=== PATIENT | female | born 1935 | race Caucasian/White ===

== ENCOUNTER 2017-03-30 08:01 | Day surgery (SDC) | payer OTHER, MEDICARE ==
[2017-03-30] MEDS ORDERED: LIDOCAINE HCL/PF 2% SDV 5ML VIAL ONE (08:33)
[2017-03-30 08:34] VITALS: BMI 32.9
[2017-03-30] MEDS ORDERED: PROPOFOL 20 ML ONE ×2 (08:34)
[2017-03-30 09:32] VITALS: TEMP 97.7
[2017-03-30] MEDS ORDERED: FUROSEMIDE 40 MG TABLET (FP) PO ONE (10:30)
[2017-03-30] MEDS ORDERED: SOTALOL HCL 80 MG TABLET (FP) PO ONE (10:30)
[2017-03-30] MEDS ORDERED: VALSARTAN 40 MG TABLET (FP) PO ONE (10:45)
[2017-03-30 14:18] VITALS: BP 180/74; PULSE 71
--- NOTE | 2017-03-31 13:45 | PATH ---
Surgical Pathology Report Patient Name: GUEVARA SCHWARTZ [facility]. Rec. #: [id number] /Age/Gender: 1935 (Age: 82) / F Account: [id number] Location: [facility]-ENDOSCOPY Taken: 03/30/2017 Received: 03/30/2017 Reported: 03/31/2017 Physicians: Shelia Escobedo M.D. Specimen(s) Received A: BX ANTRUM B: BX GASTRIC BODY POLYPS C: BX DISTAL AND MID ESOPHAGUS D: PROXIMAL TRANSVERSE COLON POLYP E: BX HEPATIC FLEXURE POLYP Clinical History History of colon polyps History of gastric ulcer, dysphagia Hiatal hernia, gastric polyps, colon polyps, diverticulosis, patent rectosigmoid anastomosis Final Diagnosis A. STOMACH, ANTRUM, BIOPSY: GASTRIC ANTRAL MUCOSA WITH NO PATHOLOGIC CHANGES. IMMUNOSTAIN FOR H. PYLORI IS NEGATIVE. B. STOMACH, BODY, BIOPSY: HYPERPLASTIC FUNDIC GLAND POLYP. IMMUNOSTAIN FOR H. PYLORI IS NEGATIVE. C. DISTAL AND MID ESOPHAGUS, BIOPSY: SQUAMOUS EPITHELIUM WITH PAPILLOMATOSIS SUGGESTIVE OF REFLUX ESOPHAGITIS. NO INTESTINAL METAPLASIA IDENTIFIED (NO SAWYER'S IDENTIFIED). NO EOSINOPHILIC ESOPHAGITIS IDENTIFIED. D. COLON, PROXIMAL TRANSVERSE, BIOPSY: TUBULAR ADENOMA. E. COLON, HEPATIC FLEXURE, BIOPSY: TUBULAR ADENOMA. Electronically Signed Quentin Chavarria M.D. Gross Description A. Received in formalin, labeled "biopsy antrum" are 2 bhat, irregular portions of soft tissue averaging 0.3 cm. in greatest dimension. The specimens are submitted in toto in one cassette. B. Received in formalin, labeled "biopsy gastric body" are 2 bhat, irregular portions of soft tissue measuring 0.3 and 0.5 cm. in greatest dimension. The specimens are submitted in toto in one cassette. C. Received in formalin, labeled "biopsy distal and mid esophagus" are 3 bhat, irregular portions of soft tissue ranging from 0.4-0.5 cm. in greatest dimension. The specimens are submitted in toto in one cassette. D. Received in formalin, labeled "proximal transverse colon polyp" is a bhat, irregular portion of soft tissue measuring 0.4 cm. in greatest dimension. The specimen is submitted in toto in one cassette. E. Received in formalin, labeled "polyp hepatic flexure" is a bhat, irregular portion of soft tissue measuring 0.3 cm. in greatest dimension. The specimen is submitted in toto in one cassette. 03/30/201703/30/2017
== END 2017-03-30 12:50 | disposition home or self-care (01) ==
LOC: JASU-ENDO 08:01
PROVIDERS: ATTEND Internal Medicine Gastroenterology
PROC: 0DBL8ZX Excision of Transverse Colon, Via Natural or Artificial Opening Endoscopic, Diagnostic (ICD-10-PCS; 2017-03-30)
PROC: 0DB38ZX Excision of Lower Esophagus, Via Natural or Artificial Opening Endoscopic, Diagnostic (ICD-10-PCS; 2017-03-30)
PROC: 0DB68ZX Excision of Stomach, Via Natural or Artificial Opening Endoscopic, Diagnostic (ICD-10-PCS; 2017-03-30)
PROC: 0DB28ZX Excision of Middle Esophagus, Via Natural or Artificial Opening Endoscopic, Diagnostic (ICD-10-PCS; 2017-03-30)
PROC: 0DBK8ZX Excision of Ascending Colon, Via Natural or Artificial Opening Endoscopic, Diagnostic (ICD-10-PCS; principal; 2017-03-30 09:00)
DX: Z86.010 Personal history of colon polyps (principal); K63.5 Polyp of colon; D12.2 Benign neoplasm of ascending colon; D12.3 Benign neoplasm of transverse colon; K57.30 Diverticulosis of large intestine without perforation or abscess without bleeding; K64.4 Residual hemorrhoidal skin tags; Z98.0 Intestinal bypass and anastomosis status; K31.7 Polyp of stomach and duodenum; K44.9 Diaphragmatic hernia without obstruction or gangrene; R10.13 Epigastric pain
CPT/HCPCS: 88305-TC; 88342-TC

== ENCOUNTER 2017-07-02 16:56 | Inpatient (IN) | payer OTHER, MEDICARE ==
--- NOTE | 2017-07-02 17:01 | PDOC ---
Rapid Medical Evaluation Time Seen by Provider: 07/02/17 16:59 Medical Evaluation: Allergies Allergy/AdvReac Type Severity Reaction Status Date / Time No Known Allergies Allergy Verified 12/05/15 16:29 07/02/17 17:00 pt with history of Afib presents with cough for weeks sent by Dr. Solis for eval of rapid Afib
[2017-07-02 17:03] VITALS: BMI 31.1
[2017-07-02 17:37] LABS: BASO % 0.5 % (0-2.0); EOS % 1.7 % (0-4.5); HEMOGLOBIN 10.7 GM/dL (10.7-15.3); LYMPH % 20.2 % (8-40); MCH 23.7 pg (25.7-33.7); MCHC 31.3 g/dl (32.0-36.0); MEAN CELL VOLUME 75.6 fl (80-96); MONO % 10.8 % (3.8-10.2); NEUT % 66.8 % (42.8-82.8); PLATELET COUNT 380 K/MM3 (134-434); RDW 16.1 % (11.6-15.6)
[2017-07-02] MEDS ORDERED: guaiFENesin 200 MG/10 ML 10 ML UNIT-DOSE CUPS PO ONE (17:48)
[2017-07-02] MEDS ORDERED: methylPREDNISolone NA SUCC 125 MG/2 ML VIAL IVPB ONE (17:48)
[2017-07-02] MEDS ORDERED: ALBUTEROL SO4 2.5/IPRATROPIUM 0.5 INH SOL 3 ML VIAL.NEB. NEB ONE ×5 (17:48→21:25)
[2017-07-02] MEDS ORDERED: SODIUM CHLORIDE 0.9% 1000 ML INFUS.BAG IV ONE (17:48)
--- NOTE | 2017-07-02 17:48 | PDOC ---
History of Present Illness - General History Source: Patient Exam Limitations: No Limitations - History of Present Illness Initial Comments: 07/02/17 19:17 The patient is a 82 year old female, with a significant past medical history of SBO, hyperlipidemia, hypertension, COPD, DM, CKD, atrial fibrillation (on Eliquis), who presents to the emergency department with, palpitations beginning prior to arrival. The patient reports she was visiting her PCP Dr. Solis for a check up when she began to experience the palpitations. She denies chest pain, diaphoresis, dizziness or double vision. The patient reports her PCP Dr. Solis advised her to visit the ED for further evaluation. The patient also reports non productive cough for approx. one week that has been progressively getting worse. The patient reports receiving antibiotics and steroids as an outpatient for the dry cough with minimal relief. The patient reports associated symptoms of sore throat secondary to the cough. The patient reports receiving a recent flu shot. She denies recent fevers, chills, headache or dizziness. She denies recent nausea, vomit, diarrhea or constipation. She denies recent dysuria, frequency, urgency or hematuria. She denies recent chest pain or shortness of breath. Allergies: NKA Primary Care Physician: Dr. Solis Art Appraiser: Dr. Hester Wound Care Rn: Dr. Castorena <Kyle Coffey - Last Filed: 07/02/17 20:15> <Bere Gauthier - Last Filed: 07/02/17 20:49> - General Chief Complaint: Palpitations Stated Complaint: PCP SENT/PALPITATIONS Time Seen by Provider: 07/02/17 16:59 Past History <Kyle Coffey - Last Filed: 07/02/17 20:15> - Past Medical History Anemia: Yes (IRON DEFICIENCY) Asthma: No Cancer: No Cardiac Disorders: Yes (ASHD,MITRAL VALVE LEAK,PAROXYSMAL A FIB) CVA: No COPD: No CHF: No Dementia: No Diabetes: (Pt denies but chart review confirms) GI Disorders: Yes (COLON ADENOMAS,DIVERTICULOSIS, HIATAL HERNIA) Disorders: Yes (Stress Incontinence-BOTOX INJECTION 10/25) HTN: Yes Hypercholesterolemia: Yes Liver Disease: No Seizures: No Thyroid Disease: No - Surgical History Abdominal Surgery: Yes (LAPAROTOMY FOR BOWEL OBSTRUCTIONS; ABDOMINAL ADHESION REMOVAL 06/26) Appendectomy: Yes (1968) Cardiac Surgery: Yes (CARDIAC CATH) Cholecystectomy: No Lung Surgery: No Neurologic Surgery: No Orthopedic Surgery: Yes (R ANKLE WITH HARDWARE ) - Immunization History Immunization Up to Date: Yes - Suicide/Smoking/Psychosocial Hx Smoking Status: No Smoking History: Never smoked Have you smoked in the past 12 months: No Number of Cigarettes Smoked Daily: 0 Hx Alcohol Use: No Drug/Substance Use Hx: No Substance Use Type: None Hx Substance Use Treatment: No <Bere Gauthier - Last Filed: 07/02/17 20:49> - Past Medical History Allergies/Adverse Reactions: Allergies Allergy/AdvReac Type Severity Reaction Status Date / Time No Known Allergies Allergy Verified 07/02/17 17:00 Home Medications: Ambulatory Orders Acetaminophen [Tylenol .Regular Strength -] 650 mg PO Q6H PRN #0 tablet Apixaban [Eliquis -] 5 mg PO BID #60 tablet 12/09/15 Cholestyramine/Aspartame [Questran Light Packet -] 2 gm PO DAILY #30 packet Furosemide [Lasix -] 20 mg PO DAILY #7 tablet 12/09/15 Gabapentin [Neurontin -] 100 mg PO TID #90 capsule 12/09/15 Sotalol HCl [Betapace -] 80 mg PO BID #60 tablet 12/09/15 Valsartan [Diovan] 40 mg PO DAILY #0 tablet 12/09/15 Review of Systems - Review of Systems Comments:: 07/02/17 19:28 GENERAL/CONSTITUTIONAL: No fever or chills. No weakness. HEAD, EYES, EARS, NOSE AND THROAT: +Sore throat. No change in vision. No ear pain or discharge. CARDIOVASCULAR: +Palpitations. No chest pain or shortness of breath. RESPIRATORY: +Non productive cough. +Wheezing. No hemoptysis. GASTROINTESTINAL: No nausea, vomiting, diarrhea or constipation. GENITOURINARY: No dysuria, frequency, or change in urination. MUSCULOSKELETAL: No joint or muscle swelling or pain. No neck or back pain. SKIN: No rash NEUROLOGIC: No headache, vertigo, loss of consciousness, or change in strength/ sensation. ENDOCRINE: No increased thirst. No abnormal weight change. HEMATOLOGIC/LYMPHATIC: No anemia, easy bleeding, or history of blood clots. ALLERGIC/IMMUNOLOGIC: No hives or skin allergy. <Kyle Coffey - Last Filed: 07/02/17 20:15> *Physical Exam - Vital Signs Last Vital Signs Temp Pulse Resp BP Pulse Ox 97.7 F 104 H 19 106/53 99 07/02/17 17:00 07/02/17 17:00 07/02/17 17:00 07/02/17 17:00 07/02/17 17:00 - Physical Exam Comments: 07/02/17 19:29 GENERAL: Awake, alert, and fully oriented, in no acute distress HEAD: No signs of trauma EYES: PERRLA, EOMI, sclera anicteric, conjunctiva clear ENT: Auricles normal inspection, hearing grossly normal, nares patent, oropharynx clear without exudates. Moist mucosa NECK: Normal ROM, supple, no lymphadenopathy, JVD, or masses LUNGS: +Wheezing and course breath sounds bilaterally. HEART: +Irregularly irregular. +Tachycardia. normal S1 and S2, no murmurs, rubs or gallops ABDOMEN: Soft, nontender, normoactive bowel sounds. No guarding, no rebound. No masses EXTREMITIES: Normal range of motion, no edema. No clubbing or cyanosis. No cords, erythema, or tenderness NEUROLOGICAL: Cranial nerves II through XII grossly intact. Normal speech. SKIN: Warm, Dry, normal turgor, no rashes or lesions noted. <Kyle Coffey - Last Filed: 07/02/17 20:15> - Vital Signs Last Vital Signs Temp Pulse Resp BP Pulse Ox 97.7 F 104 H 19 106/53 99 07/02/17 17:00 07/02/17 17:00 07/02/17 17:00 07/02/17 17:00 07/02/17 17:00 <Bere Gauthier - Last Filed: 07/02/17 20:49> ED Treatment Course - LABORATORY CBC & Chemistry Diagram: 07/02/17 17:25 07/02/17 17:25 - ADDITIONAL ORDERS Additional order review: Laboratory Results 07/02/17 07/02/17 17:25 17:25 PT with INR 19.40 H INR 1.72 H PTT (Actin FS) 29.1 Sodium 138 Potassium 3.7 Chloride 100 Carbon Dioxide 29 Anion Gap 9 BUN 17 Creatinine 0.9 Creat Clearance w eGFR > 60 Random Glucose 210 H Calcium 8.6 Total Bilirubin 0.4 D AST 19 ALT 21 Alkaline Phosphatase 92 Creatine Kinase 45 Troponin I < 0.02 Total Protein 6.5 Albumin 2.7 L 07/02/17 17:25 RBC 4.50 D MCV 75.6 L MCHC 31.3 L RDW 16.1 H MPV 8.0 Neutrophils % 66.8 D Lymphocytes % 20.2 D Monocytes % 10.8 H Eosinophils % 1.7 Basophils % 0.5 - Medications Given in the ED: ED Medications Discontinued Medications Generic Name Dose Route Start Last Admin Trade Name Freq PRN Reason Stop Dose Admin Albuterol/Ipratropium 1 amp 07/02/17 17:48 07/02/17 18:03 Duoneb - NEB 07/02/17 17:49 1 amp ONCE ONE Administration Albuterol/Ipratropium 1 amp 07/02/17 17:48 07/02/17 18:10 Duoneb - NEB 07/02/17 17:49 1 amp ONCE ONE Administration Guaifenesin 10 ml 07/02/17 17:48 07/02/17 18:03 Robitussin - PO 07/02/17 17:49 10 ml ONCE ONE Administration Methylprednisolone Sodium Succinate 125 mg 07/02/17 17:48 07/02/17 18:03 Solu-Medrol - IVPB 07/02/17 17:49 125 mg ONCE ONE Administration Sodium Chloride 1,000 ml 07/02/17 17:48 07/02/17 18:03 Normal Saline - IV 07/02/17 17:49 1,000 ml ONCE ONE Administration <Kyle Cofefy - Last Filed: 07/02/17 20:15> - LABORATORY CBC & Chemistry Diagram: 07/02/17 17:25 07/02/17 17:25 <Bere Gauthier - Last Filed: 07/02/17 20:49> Medical Decision Making - Medical Decision Making 07/02/17 20:39 a/p: 82yo female with palpitaitons and copd exacerbation has been treated by Dr. Soils and treated with 4 courses of abx and steroids over the last few weeks wheezing, cough, congestion cp with the cough/sore throat from coughing afib at 109 - on sotalol -saw Dr. Hester at the beginning of the course -will check labs, ekg, cxr -cultures will need admission for failed outpt therapy of copd exacerbation 07/02/17 20:46 re-eval: still with wheezing will add mag will add abx given steroids consults placed to pulm and cards will need admission 07/02/17 20:47 case discussed with FENDER MECHANIC APPRENTICE from [facility] who accepts pt to service 07/02/17 20:48 <Bere Gauthier - Last Filed: 07/02/17 20:49> *DC/Admit/Observation/Transfer - Attestations Scribe Attestion: 07/02/17 19:31 Documentation prepared by Kyle Coffey, acting as medical billing manager for Bere Gauthier DO. <Kyle Coffey - Last Filed: 07/02/17 20:15> - Discharge Dispostion Admit: Yes - Attestations Physician Attestion: 07/02/17 20:44 I, Dr. Bere Gauthier, DO, attest that this document has been prepared under my direction and personally reviewed by me in its entirety. I further attest, that it accurately reflects all work, treatment, procedures and medical decision -making performed by me. <Bere Gauthier - Last Filed: 07/02/17 20:49> Diagnosis at time of Disposition: Palpitations, Paroxysmal atrial fibrillation, COPD (chronic obstructive pulmonary disease) - Discharge Dispostion Condition at time of disposition: Fair
[2017-07-02] MEDS ORDERED: methylPREDNISolone NA SUCC 125 MG/2 ML VIAL ONE (17:51)
[2017-07-02] MEDS ORDERED: guaiFENesin 200 MG/10 ML 10 ML UNIT-DOSE CUPS ONE (17:51)
[2017-07-02 17:53] LABS: INR 1.72 (0.82-1.09); PROTHROMBIN TIME (PATIENT) 19.4 SEC (9.98-11.88)
[2017-07-02 17:55] LABS: ACTIVATED PTT 29.1 SECONDS (26.9-34.4)
[2017-07-02 18:17] LABS: ALBUMIN 2.7 g/dl (3.4-5.0); ANION GAP 9 (8-16); BILIRUBIN,TOTAL 0.4 mg/dL (0.2-1.0); BLOOD UREA NITROGEN 17 mg/dL (7-18); CALCIUM 8.6 mg/dL (8.5-10.1); CHLORIDE 100 mmol/L (98-107); CO2 29 mmol/L (21-32); CREATININE 0.9 mg/dL (0.55-1.02); GLUCOSE,RANDOM 210 mg/dL (74-106); POTASSIUM 3.7 mmol/L (3.5-5.1); SGOT/AST 19 U/L (15-37); SGPT/ALT 21 U/L (12-78); SODIUM 138 mmol/L (136-145); TOT PROT 6.5 g/dl (6.4-8.2)
[2017-07-02 18:19] LABS: ALK PHOS 92 U/L (45-117)
[2017-07-02] MEDS ORDERED: MAGNESIUM SULF 50% (8.12 MEQ/2 ML-1 GM VIAL) IVPB ONE (20:01)
[2017-07-02] MEDS ORDERED: SOTALOL HCL 80 MG TABLET (FP) PO ONE (20:36)
[2017-07-02] MEDS ORDERED: cefTRIAXone 1 GM/50 ML BAG (PRE-DOCKED) IVPB ONE (20:37)
[2017-07-02] MEDS ORDERED: AZITHROMYCIN IVPB 500 MG in DEXTROSE 5%-WATER - 250 ML IVPB ONE (20:37)
[2017-07-02] MEDS ORDERED: MAGNESIUM SULF 50% (8.12 MEQ/2 ML-1 GM VIAL) ONE (21:25)
[2017-07-02] MEDS ORDERED: AZITHROMYCIN IVPB 250 ML IVPB ONE (21:26)
[2017-07-02] MEDS ORDERED: CEFTRIAXONE 1 GM/50 ML BAG ONE (21:26)
[2017-07-02] MEDS ORDERED: guaiFENesin/CODEINE 5 ML UNIT-DOSE CUPS PO PRN (23:41)
--- NOTE | 2017-07-02 23:46 | HP ---
CHIEF COMPLAINT: Palpitations today, SOB/cough x weeks PCP: Will HISTORY OF PRESENT ILLNESS: This is an 82 year old female with a past medical hsitory significant for COPD, Afib presented with SOB and cough for weeks, treated with ABT and prednisone without relief. Today she presented back to PCP with palpitations as well. PCP referred pt to ED. ER course was notable for: (1) WBC 14.0 (2) Gluc 210 (3) CXR ? RLL PNA, LLL pleural effusion Recent Travel: pt denies PAST MEDICAL HISTORY: Afib, ASHD, MVRegurg, HTN, HLD, anemia, COPD, colon adneomas, diverticulosis, hiatal hernia, SBO, stress incontinence s/p botox PAST SURGICAL HISTORY: laparotomay, lysis of adhesions 06/2011 appendectomy 1968 R ankle ORIF 90s cardiac cath without intervention needed Social History: Smoking: pt denies Alcohol: pt denies Drugs: pt denies Family History: mother in her 70s, CVA father in his 70s, hearing examiner's lung sister in her 60s, ovarian CA sister in her 60s, heart trouble brother in his 60s prostate CA sister in her 80s, BrCA survivor Allergies No Known Allergies Allergy (Verified 07/02/17 17:00) HOME MEDICATIONS: 3 Medication Instructions Recorded Acetaminophen [Tylenol .Regular 650 mg PO Q6H PRN #0 tablet 12/09/15 Strength -] Apixaban [Eliquis -] 5 mg PO BID #60 tablet 12/09/15 Furosemide [Lasix -] 20 mg PO DAILY #7 tablet 12/09/15 Gabapentin [Neurontin -] 100 mg PO TID #90 capsule 12/09/15 Sotalol HCl [Betapace -] 80 mg PO BID #60 tablet 12/09/15 Valsartan [Diovan] 40 mg PO DAILY #0 tablet 12/09/15 REVIEW OF SYSTEMS CONSTITUTIONAL: Absent: fever, chills, diaphoresis, generalized weakness, malaise, loss of appetite, weight change HEENT: Absent: rhinorrhea, nasal congestion, throat pain, throat swelling, difficulty swallowing, mouth swelling, ear pain, eye pain, visual changes CARDIOVASCULAR: Present: palpitations Absent: chest pain, syncope, irregular heart rate, lightheadedness, peripheral edema RESPIRATORY: Present: cough, shortness of breath Absent: stridor, hemoptysis GASTROINTESTINAL: Absent: abdominal pain, abdominal distension, nausea, vomiting, diarrhea, constipation, melena, hematochezia GENITOURINARY: Absent: dysuria, frequency, urgency, hesitancy, hematuria, flank pain, genital pain MUSCULOSKELETAL: Absent: myalgia, arthralgia, joint swelling, back pain, neck pain SKIN: Absent: rash, itching, pallor HEMATOLOGIC/IMMUNOLOGIC: Absent: easy bleeding, easy bruising, lymphadenopathy, frequent infections ENDOCRINE: Absent: unexplained weight gain, unexplained weight loss, heat intolerance, cold intolerance NEUROLOGIC: Absent: headache, focal weakness or paresthesias, dizziness, unsteady gait, seizure, mental status changes, bladder or bowel incontinence PSYCHIATRIC: Absent: anxiety, depression, suicidal or homicidal ideation, hallucinations. PHYSICAL EXAMINATION Vital Signs - 24 hr 3 07/02/17 17:00 Temperature 97.7 F Pulse Rate 104 H Respiratory 19 Rate Blood Pressure 106/53 O2 Sat by Pulse 99 Oximetry (%) GENERAL: Awake, alert, and fully oriented, in no acute distress. HEAD: Normal with no signs of trauma. EYES: Pupils equal, round and reactive to light, extraocular movements intact, sclera anicteric, conjunctiva clear. No lid lag. EARS, NOSE, THROAT: Ears normal, nares patent, oropharynx clear without exudates. Moist mucous membranes. NECK: Normal range of motion, supple without lymphadenopathy, JVD, or masses. LUNGS: Breath sounds clear to auscultation right, coarse, + crackles left base. No wheezes. No accessory muscle use. HEART: Regular rate and rhythm, normal S1 and S2 without murmur, rub or gallop. ABDOMEN: Soft, nontender, not distended, normoactive bowel sounds, no guarding, no rebound, no masses. No hepatomegaly or splenomegaly. MUSCULOSKELETAL: Normal range of motion at all joints. No bony deformities or tenderness. No CVA tenderness. UPPER EXTREMITIES: 2+ pulses, warm, well-perfused. No cyanosis. No clubbing. No peripheral edema. LOWER EXTREMITIES: 2+ pulses, warm, well-perfused. No calf tenderness. No peripheral edema. NEUROLOGICAL: Cranial nerves II-XII intact. Normal speech. Normal gait. PSYCHIATRIC: Cooperative. Good eye contact. Appropriate mood and affect. SKIN: Warm, dry, normal turgor, no rashes or lesions noted, normal capillary refill. Laboratory Results - last 24 hr 3 07/02/17 07/02/17 07/02/17 17:25 17:25 17:25 WBC 14.0 H D RBC 4.50 D Hgb 10.7 D Hct 34.0 D MCV 75.6 L MCH 23.7 L MCHC 31.3 L RDW 16.1 H Plt Count 380 D MPV 8.0 Neutrophils % 66.8 D Lymphocytes % 20.2 D Monocytes % 10.8 H Eosinophils % 1.7 Basophils % 0.5 PT with INR 19.40 H INR 1.72 H PTT (Actin FS) 29.1 Sodium 138 Potassium 3.7 Chloride 100 Carbon Dioxide 29 Anion Gap 9 BUN 17 Creatinine 0.9 Creat Clearance w eGFR > 60 Random Glucose 210 H Calcium 8.6 Total Bilirubin 0.4 D AST 19 ALT 21 Alkaline Phosphatase 92 Creatine Kinase 45 Troponin I < 0.02 Total Protein 6.5 Albumin 2.7 L ECG Atrial fibrillation with RVR Rate 109, QTC 444 nonspecific T wave abnormality Radiology Reports CXR read pending, ? RLL infiltrate, LLL pleural effusion ASSESSMENT/PLAN: 82yF with PMH Afib, ASHD, MVRegurg, HTN, HLD, anemia, COPD, colon adneomas, diverticulosis, hiatal hernia, SBO, stress incontinence s/p botox presented with cough and SOB for weeks and palpitations today. Pneumonia, CAP in setting of COPD - azithromycin and ceftriaxone given in ED, cont - flu swab - CT chest ordered - given solumedrol and mag with good effect. cont solumedrol 40mg IVP q6h, taper as tolerated - pulmonary consult atrial fibrillation with RVR - cont home sotalol, if no improvement with same, consider cardizem IVP - cont home apixaban - cardiology consult - troponin neg x 1 HTN/HLD - cont home diovan, betapace, lasix - home vascepa held, non formulary hyperglycemia - records state + h/o DM, pt denies same - BGM AC/HS with novolog sliding scale. - check a1c DVT PPX - cont home apixaban FEN - hold ivf - bmp in am - low sodium diet as tolerated Dispo: Pt currently requires inpatient management of her emergent condition. Visit type - Emergency Visit Emergency Visit: Yes ED Registration Date: 07/02/17 Care time: The patient presented to the Emergency Department on the above date and was hospitalized for further evaluation of their emergent condition. - New Patient This patient is new to me today: Yes Date on this admission: 07/02/17 - Critical Care Critical Care patient: No
[2017-07-03] MEDS ORDERED: methylPREDNISolone NA SUCC 40 MG/1 ML VIAL ONE (03:25)
[2017-07-03] MEDS: methylPREDNISolone NA SUCC 40 MG/1 ML VIAL IVPUSH SCH ×4 (03:26→22:11)
[2017-07-03] MEDS ORDERED: ALBUTEROL SO4 0.083% IH SOL 2.5 MG/3 ML VIAL.NEB. NEB PRN (03:29)
[2017-07-03] MEDS ORDERED: guaiFENesin/CODEINE 5 ML UNIT-DOSE CUPS PO ONE (06:21)
[2017-07-03] MEDS ORDERED: GABAPENTIN 100 MG CAPSULE (FP) ONE (06:21)
[2017-07-03] MEDS: GABAPENTIN 100 MG CAPSULE (FP) PO SCH ×3 (06:25→22:11)
[2017-07-03] MEDS: INSULIN SLIDING SCALE (NOVOLOG) 1 VIAL SQ SCH ×4 (06:25→22:12)
[2017-07-03] MEDS ORDERED: INSULIN (NOVOLOG) ASPART 100 UNITS/ML 10ML VIAL ONE ×2 (06:27→11:41)
[2017-07-03 07:27] LABS: BASO % 0.1 % (0-2.0); HEMATOCRIT 31.2 % (32.4-45.2); HEMOGLOBIN 9.8 GM/dL (10.7-15.3); MCH 23.7 pg (25.7-33.7); MCHC 31.2 g/dl (32.0-36.0); MEAN CELL VOLUME 75.8 fl (80-96); MEAN PLT VOLUME 8.2 fl (7.5-11.1); MONO % 1.1 % (3.8-10.2); NEUT % 87.8 % (42.8-82.8); PLATELET COUNT 330 K/MM3 (134-434); RBC 4.12 M/mm3 (3.60-5.2); RDW 16.4 % (11.6-15.6); WHITE BLOOD COUNT 9.9 K/mm3 (4.0-10.0)
[2017-07-03 07:56] LABS: CHLORIDE 103 mmol/L (98-107); POTASSIUM 3.8 mmol/L (3.5-5.1); SODIUM 139 mmol/L (136-145)
[2017-07-03 07:59] LABS: ANION GAP 10 (8-16); BLOOD UREA NITROGEN 14 mg/dL (7-18); CALCIUM 8.6 mg/dL (8.5-10.1); CO2 26 mmol/L (21-32); CREATININE 0.7 mg/dL (0.55-1.02); GLUCOSE,RANDOM 228 mg/dL (74-106); MAGNESIUM 1.5 mg/dL (1.8-2.4); PHOSPHOROUS 2.2 mg/dL (2.5-4.9)
[2017-07-03] MEDS: SOTALOL HCL 80 MG TABLET (FP) PO SCH ×2 (10:25→22:12)
[2017-07-03] MEDS: APIXABAN 5 MG TABLET PO SCH ×2 (10:25→22:11)
[2017-07-03] MEDS: VALSARTAN 40 MG TABLET (FP) PO SCH (10:25)
[2017-07-03] MEDS: ALBUTEROL SO4 2.5/IPRATROPIUM 0.5 INH SOL 3 ML VIAL.NEB. NEB SCH ×4 (10:25→20:53)
[2017-07-03] MEDS: FUROSEMIDE 20 MG TABLET (FP) PO SCH (10:25)
--- NOTE | 2017-07-03 11:32 | CON.ID ---
Consult Consult Specialty:: infectious disease Referred by:: lara - History of Present Illness Chief Complaint: cough. low BP History of Present Illness: she has been having cough since the end of April- several courses of antibiotics and steroids- thinks she has used steroids 4 times since April recent antibiotics non productive cough no fevers no diarrhea has lost 3 pounds no dysuria - History Source History Provided By: Patient Limitations to Obtaining History: No Limitations - Past Medical History Cardio/Vascular: Yes: AFIB (paroxysmal atrial fibrillation. Normal coronaries on 2013 cath. 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) Hepatobiliary: Yes: Cholelithiasis Musculoskeletal: Yes: Chronic low back pain, Osteoarthritis Endocrine: Yes: Osteopenia Additional Medical History: SBO - Past Surgical History Past Surgical History: Yes: Appendectomy (SBO ABDOMINAL WALL HERNIA S/P REPAIR) , Breast Biopsy, Cataract Removal, Colectomy, Colonoscopy, Hysterectomy, Upper Endoscopy (colon adenomas removed, Schatzk ring dilated) - Alcohol/Substance Use Hx Alcohol Use: No History of Substance Use: reports: None - Smoking History Smoking history: Never smoked Have you smoked in the past 12 months: No Aproximately how many cigarettes per day: 0 - Social History Usual Living Arrangement: With Spouse ADL: Independent Occupation: retired [employer] History of Recent Travel: No Home Medications - Allergies Allergies/Adverse Reactions: Allergies Allergy/AdvReac Type Severity Reaction Status Date / Time No Known Allergies Allergy Verified 07/02/17 17:00 - Home Medications Home Medications: Ambulatory Orders Acetaminophen [Tylenol .Regular Strength -] 650 mg PO Q6H PRN #0 tablet Apixaban [Eliquis -] 5 mg PO BID #60 tablet 12/09/15 Furosemide [Lasix -] 20 mg PO DAILY #7 tablet 12/09/15 Gabapentin [Neurontin -] 100 mg PO TID #90 capsule 12/09/15 Sotalol HCl [Betapace -] 80 mg PO BID #60 tablet 12/09/15 Valsartan [Diovan] 40 mg PO DAILY #0 tablet 12/09/15 Family Disease History - Family Disease History Family Disease History: Diabetes: Son, CA: Sister (breast and uterine cancers), Other: Father (ASHD), Mother (CVA) Review of Systems - Review of Systems Constitutional: denies: Chills, Diaphoresis, Fever HENT: reports: No Symptoms. denies: Difficult Swallowing Neck: reports: No Symptoms Cardiovascular: reports: No Symptoms. denies: Chest Pain Respiratory: reports: Cough Genitourinary: reports: No Symptoms Musculoskeletal: reports: No Symptoms Physical Exam Vital Signs: Vital Signs Temperature 98.4 F 07/03/17 07:28 Pulse Rate 76 07/03/17 07:28 Respiratory Rate 18 07/03/17 07:28 Blood Pressure 129/74 07/03/17 07:28 O2 Sat by Pulse Oximetry (%) 100 07/03/17 07:28 Constitutional: Yes: Well Nourished, No Distress, Other (coughing) Eyes: Yes: WNL HENT: Yes: WNL, Atraumatic, Normocephalic. No: Pharyngeal Erythema, Thrush Neck: Yes: Supple Cardiovascular: Yes: Regular Rate and Rhythm Respiratory: Yes: Regular, Rhonchi (bilaterally) Gastrointestinal: Yes: Normal Bowel Sounds, Soft ...Rectal Exam: Yes: Deferred Extremities: Yes: WNL Edema: No Psychiatric: Yes: Alert, Oriented Labs: CBC, BMP 07/03/17 07:10 07/03/17 07:09 influenza antigen negative blood cultures pending Imaging - Results Chest X-ray: Report Reviewed, Image Reviewed Cat Scan: Report Reviewed, Image Reviewed (patchy consolidation RLL, RML atelectasis) Problem List - Problems (1) Pneumonia Code(s): J18.9 - PNEUMONIA, UNSPECIFIED ORGANISM (2) COPD (chronic obstructive pulmonary disease) Code(s): J44.9 - CHRONIC OBSTRUCTIVE PULMONARY DISEASE, UNSPECIFIED Assessment/Plan continue rocephin and zithromax f/allyssa cultures legionella urinary antigen pulmonary to see
--- NOTE | 2017-07-03 13:29 | EKG ---
Test Reason : Blood Pressure : / mmHG Vent. Rate : 109 BPM Atrial Rate : 104 BPM P-R Int : 000 ms QRS Dur : 090 ms QT Int : 330 ms P-R-T Axes : 000 024 183 degrees QTc Int : 444 ms ATRIAL FIBRILLATION WITH RAPID VENTRICULAR RESPONSE MINIMAL VOLTAGE CRITERIA FOR LVH, MAY BE NORMAL VARIANT ABNORMAL ECG Confirmed by MD SNEHA, RATNA ([id number]) on 07/03/2017 1:28:59 PM Referred By: Confirmed By:RATNA HOOVER MD
--- NOTE | 2017-07-03 14:57 | PN ---
Progress Note, Physician Chief Complaint: in the ER coughing History of Present Illness: admitted for dizziness,chest heaviness and worseining cough - Current Medication List Current Medications: Active Medications Acetaminophen (Tylenol -) 650 mg PO Q6H PRN PRN Reason: FEVER Albuterol Sulfate (Ventolin 0.083% Nebulizer Soln -) 1 amp NEB Q4H PRN PRN Reason: SHORT OF BREATH/WHEEZING Albuterol/Ipratropium (Duoneb -) 1 amp NEB RQID [facility] Last Admin: 07/03/17 12:09 Dose: 1 amp Apixaban (Eliquis -) 5 mg PO BID [facility] Last Admin: 07/03/17 10:25 Dose: 5 mg Furosemide (Lasix -) 20 mg PO DAILY [facility] Last Admin: 07/03/17 10:25 Dose: 20 mg Gabapentin (Neurontin -) 100 mg PO TID [facility] Last Admin: 07/03/17 06:25 Dose: 100 mg Guaifenesin/Codeine Phosphate (Robitussin Ac -) 5 ml PO HS PRN PRN Reason: COUGH Stop: 07/03/17 23:40 Last Admin: 07/03/17 06:25 Dose: 5 ml Azithromycin 500 mg/ Dextrose 250 mls @ 250 mls/hr IVPB HS [facility]OXI CEFTRIAXONE 1 G/50 ML PREMIX (Ceftriaxone 1 Gm-D5w Bag) 50 mls @ 100 mls/hr IVPB HS ROXI Insulin Aspart (Novolog Vial Sliding Scale -) 1 vial SQ HS [facility] PRN Reason: Protocol Insulin Aspart (Novolog Vial Sliding Scale -) 1 vial SQ TIDAC [facility] PRN Reason: Protocol Last Admin: 07/03/17 11:39 Dose: 4 unit Methylprednisolone Sodium Succinate (Solu-Medrol -) 40 mg IVPUSH Q6H-IV [facility] Last Admin: 07/03/17 10:25 Dose: 40 mg Sotalol HCl (Betapace -) 80 mg PO BID [facility] Last Admin: 07/03/17 10:25 Dose: 80 mg Valsartan (Diovan -) 40 mg PO DAILY [facility] Last Admin: 07/03/17 10:25 Dose: 40 mg - Objective Vital Signs: Vital Signs Temperature 98.4 F 07/03/17 07:28 Pulse Rate 76 07/03/17 07:28 Respiratory Rate 18 07/03/17 07:28 Blood Pressure 129/74 07/03/17 07:28 O2 Sat by Pulse Oximetry (%) 100 07/03/17 07:28 Constitutional: Yes: Calm Cardiovascular: Yes: Pulse Irregular, S1, S2 Labs: CBC, BMP 07/03/17 07:10 07/03/17 07:09 INR, PTT INR 1.72 (0.82-1.09) H 07/02/17 17:25 Problem List - Problems (1) Paroxysmal atrial fibrillation Assessment/Plan: cardiology eliquis 5mg po bid continue sotalol tele Code(s): I48.0 - PAROXYSMAL ATRIAL FIBRILLATION (2) Pneumonia Assessment/Plan: chest ct shows patchy right lower lobe opacity on iv abx bronchodilators Code(s): J18.9 - PNEUMONIA, UNSPECIFIED ORGANISM (3) COPD (chronic obstructive pulmonary disease) Assessment/Plan: currently on steroids Code(s): J44.9 - CHRONIC OBSTRUCTIVE PULMONARY DISEASE, UNSPECIFIED (4) Electrolyte abnormality Assessment/Plan: repleted check magnesium Code(s): E87.8 - OTH DISORDERS OF ELECTROLYTE AND FLUID BALANCE, NEC
--- NOTE | 2017-07-03 15:01 | CONSULT ---
Consultation: REQUESTING PROVIDER: Dr. Gauthier CONSULT REQUEST: We have been asked to medically evaluate this patient for sob. HISTORY OF PRESENT ILLNESS: This is an 82 year old female with a past medical history of HLD, HTN, DM, CKD, COPD, atrial fibrillation, whowas sent over by her primary for treatment of rapid a fib and worsening dyspnea with cough and sputum production that failed outpatient treatment of antibiotic and steroids. She denies, fever, chills, chest pain, leg swelling. She does admit to intermittent episodes of nausea and vomiting. She has lost ten pounds over the past month. She states she feels something "gets stuck" in her throat that feels like mucous. ER she was given IV antibiotics, IV steroids, bronchodilators, rate controlled. REVIEW OF SYSTEMS: CONSTITUTIONAL: Absent: fever, chills, diaphoresis, generalized weakness, malaise, loss of appetite, weight change HEENT: Absent: rhinorrhea, nasal congestion, throat pain, throat swelling, difficulty swallowing, mouth swelling, ear pain, eye pain, visual changes CARDIOVASCULAR: Positive: palpitations, irregular heart rate Absent: chest pain, syncope,, lightheadedness, peripheral edema RESPIRATORY: Positive:cough, shortness of breath, dyspnea with exertion, Absent: orthopnea, wheezing, stridor, hemoptysis GASTROINTESTINAL: Absent: abdominal pain, abdominal distension, nausea, vomiting, diarrhea, constipation, melena, hematochezia GENITOURINARY: Absent: dysuria, frequency, urgency, hesitancy, hematuria, flank pain, genital pain MUSCULOSKELETAL: Absent: myalgia, arthralgia, joint swelling, back pain, neck pain SKIN: Absent: rash, itching, pallor HEMATOLOGIC/IMMUNOLOGIC: Absent: easy bleeding, easy bruising, lymphadenopathy, frequent infections ENDOCRINE: Absent: unexplained weight gain, unexplained weight loss, heat intolerance, cold intolerance NEUROLOGIC: Absent: headache, focal weakness or paresthesias, dizziness, unsteady gait, seizure, mental status changes, bladder or bowel incontinence PSYCHIATRIC: Absent: anxiety, depression, suicidal or homicidal ideation, hallucinations. PHYSICAL EXAMINATION Vital Signs - 24 hr 07/02/17 07/03/17 07/03/17 17:00 06:31 07:28 Temperature 97.7 F 98.5 F 98.4 F Pulse Rate 104 H Pulse Rate [ 76 Apical] Pulse Rate [ 77 Left Radial] Respiratory 19 19 18 Rate Blood Pressure 106/53 Blood Pressure 126/78 129/74 [Right Arm] O2 Sat by Pulse 99 99 99 Oximetry (%) GENERAL: Awake, alert, and fully oriented, in no acute distress. HEAD: Normal with no signs of trauma. EYES: Pupils equal, round and reactive to light, extraocular movements intact, sclera anicteric, conjunctiva clear. No lid lag. EARS, NOSE, THROAT: Ears normal, nares patent, oropharynx clear without exudates. Moist mucous membranes. NECK: Normal range of motion, supple without lymphadenopathy, JVD, or masses. LUNGS: bilateral crackles at bases. No accessory muscle use. HEART: Regular rate and rhythm, normal S1 and S2 without murmur, rub or gallop. ABDOMEN: Soft, nontender, not distended, normoactive bowel sounds, no guarding, no rebound, no masses. No hepatomegaly or splenomegaly. MUSCULOSKELETAL: Normal range of motion at all joints. No bony deformities or tenderness. No CVA tenderness. UPPER EXTREMITIES: 2+ pulses, warm, well-perfused. No cyanosis. No clubbing. Cap refill <2 seconds. No peripheral edema. LOWER EXTREMITIES: 2+ pulses, warm, well-perfused. No calf tenderness. No peripheral edema. NEUROLOGICAL: Cranial nerves II-XII intact. Normal speech. Normal gait. PSYCHIATRIC: Cooperative. Good eye contact. Appropriate mood and affect. SKIN: Warm, dry, normal turgor, no rashes or lesions noted. Laboratory Results - last 24 hr 07/02/17 07/02/17 07/02/17 17:25 17:25 17:25 WBC 14.0 H D RBC 4.50 D Hgb 10.7 D Hct 34.0 D MCV 75.6 L MCH 23.7 L MCHC 31.3 L RDW 16.1 H Plt Count 380 D MPV 8.0 Neutrophils % 66.8 D Lymphocytes % 20.2 D Monocytes % 10.8 H Eosinophils % 1.7 Basophils % 0.5 PT with INR 19.40 H INR 1.72 H PTT (Actin FS) 29.1 Sodium 138 Potassium 3.7 Chloride 100 Carbon Dioxide 29 Anion Gap 9 BUN 17 Creatinine 0.9 Creat Clearance w eGFR > 60 POC Glucometer Random Glucose 210 H Hemoglobin A1c % Calcium 8.6 Phosphorus Magnesium Total Bilirubin 0.4 D AST 19 ALT 21 Alkaline Phosphatase 92 Creatine Kinase 45 Troponin I < 0.02 Total Protein 6.5 Albumin 2.7 L 07/03/17 07/03/17 07/03/17 00:20 06:19 07:09 WBC RBC Hgb Hct MCV MCH MCHC RDW Plt Count MPV Neutrophils % Lymphocytes % Monocytes % Eosinophils % Basophils % PT with INR INR PTT (Actin FS) Sodium 139 Potassium 3.8 Chloride 103 Carbon Dioxide 26 Anion Gap 10 BUN 14 Creatinine 0.7 Creat Clearance w eGFR POC Glucometer [phone] Random Glucose 228 H Hemoglobin A1c % Calcium 8.6 Phosphorus 2.2 L Magnesium 1.5 L Total Bilirubin AST ALT Alkaline Phosphatase Creatine Kinase 40 Troponin I < 0.02 Total Protein Albumin 07/03/17 07/03/17 07/03/17 07:09 07:10 07:10 WBC 9.9 RBC 4.12 Hgb 9.8 L Hct 31.2 L MCV 75.8 L MCH 23.7 L MCHC 31.2 L RDW 16.4 H Plt Count 330 MPV 8.2 Neutrophils % 87.8 H D Lymphocytes % 11.0 D Monocytes % 1.1 L D Eosinophils % 0.0 D Basophils % 0.1 PT with INR INR PTT (Actin FS) Sodium Potassium Chloride Carbon Dioxide Anion Gap BUN Creatinine Creat Clearance w eGFR POC Glucometer Random Glucose Hemoglobin A1c % 8.4 H Calcium Phosphorus Magnesium Total Bilirubin AST ALT Alkaline Phosphatase Creatine Kinase 31 Troponin I < 0.02 Total Protein Albumin 07/03/17 11:38 WBC RBC Hgb Hct MCV MCH MCHC RDW Plt Count MPV Neutrophils % Lymphocytes % Monocytes % Eosinophils % Basophils % PT with INR INR PTT (Actin FS) Sodium Potassium Chloride Carbon Dioxide Anion Gap BUN Creatinine Creat Clearance w eGFR POC Glucometer [phone] Random Glucose Hemoglobin A1c % Calcium Phosphorus Magnesium Total Bilirubin AST ALT Alkaline Phosphatase Creatine Kinase Troponin I Total Protein Albumin Active Medications Generic Name Dose Route Start Last Admin Trade Name Freq PRN Reason Stop Dose Admin Acetaminophen 650 mg 07/03/17 03:50 Tylenol - PO Q6H PRN FEVER Albuterol Sulfate 1 amp 07/03/17 03:29 Ventolin 0.083% Nebulizer Soln - NEB Q4H PRN SHORT OF BREATH/WHEEZING Albuterol/Ipratropium 1 amp 07/03/17 08:00 07/03/17 12:09 Duoneb - NEB 1 amp RQID ROXI Administration Apixaban 5 mg 07/03/17 10:00 07/03/17 10:25 Eliquis - PO 5 mg BID [facility]I Administration Furosemide 20 mg 07/03/17 10:00 07/03/17 10:25 Lasix - PO 20 mg DAILY [facility]I Administration Gabapentin 100 mg 07/03/17 06:00 07/03/17 14:57 Neurontin - PO 100 mg TID [facility]I Administration Guaifenesin/Codeine Phosphate 5 ml 07/02/17 23:41 07/03/17 06:25 Robitussin Ac - PO 07/03/17 23:40 5 ml HS PRN Administration COUGH Azithromycin 500 mg/ Dextrose 250 mls @ 250 mls/hr 07/03/17 22:00 IVPB HS [facility]OXI CEFTRIAXONE 1 G/50 ML PREMIX 50 mls @ 100 mls/hr 07/03/17 22:00 Ceftriaxone 1 Gm-D5w Bag IVPB HS [facility] Insulin Aspart 1 vial 07/03/17 22:00 Novolog Vial Sliding Scale - SQ HS [facility]I Protocol Insulin Aspart 1 vial 07/03/17 07:00 07/03/17 11:39 Novolog Vial Sliding Scale - SQ 4 unit TIDAC [facility]OXI Administration Protocol Methylprednisolone Sodium Succinate 40 mg 07/03/17 03:00 07/03/17 14:57 Solu-Medrol - IVPUSH 40 mg Q6H-IV [facility] Administration Sotalol HCl 80 mg 07/03/17 10:00 07/03/17 10:25 Betapace - PO 80 mg BID [facility] Administration Valsartan 40 mg 07/03/17 10:00 07/03/17 10:25 Diovan - PO 40 mg DAILY [facility]I Administration ASSESSMENT/PLAN: The patient is a 82 year old female, with a significant past medical history of SBO, hyperlipidemia, hypertension, COPD, DM, CKD, atrial fibrillation (on Eliquis), who presents to the emergency department with, palpitations, dyspnea with productive cough. Impression: CABP vs aspiration PNA Rapid atrial fib now in sinus COPD HTN CKD Chronic anemia DM Plan: check barron culture urine antigens influenza negative IV antibiotics IV steroids bronchodilators o2 as needed telemetry monitoring glycemic control anticoagulation electrolyte correction rate control' sotalol as per cardio Dispo: We will continue to follow the patient. Thank you for this consultative opportunity. Problem List - Problems (1) COPD (chronic obstructive pulmonary disease) Code(s): J44.9 - CHRONIC OBSTRUCTIVE PULMONARY DISEASE, UNSPECIFIED (2) Palpitations Code(s): R00.2 - PALPITATIONS (3) Paroxysmal atrial fibrillation Code(s): I48.0 - PAROXYSMAL ATRIAL FIBRILLATION (4) Pneumonia Code(s): J18.9 - PNEUMONIA, UNSPECIFIED ORGANISM (5) Anemia Code(s): D64.9 - ANEMIA, UNSPECIFIED (6) Electrolyte abnormality Code(s): E87.8 - OTH DISORDERS OF ELECTROLYTE AND FLUID BALANCE, NEC Visit type - Emergency Visit Emergency Visit: Yes ED Registration Date: 07/02/17 Care time: The patient presented to the Emergency Department on the above date and was hospitalized for further evaluation of their emergent condition. - New Patient This patient is new to me today: Yes Date on this admission: 07/03/17 - Critical Care Critical Care patient: No
--- NOTE | 2017-07-03 18:57 | CON.CARD ---
Consult Consult Specialty:: Cardiology Referred by:: Fany Solis MD Reason for Consultation:: PAF - History of Present Illness Chief Complaint: Dyspnea, cough, wheeze History of Present Illness: This is an 82 year old female with a past medical history significant for COPD, Afib presented with SOB, nonproductive cough for weeks, treated with abx, BD and prednisone as outpatient without relief. Today she presented back to PCP with palpitations, weakness and fatigue, found to be in rapid afib. She denies chest pain, near or true syncope, orthopnea, PND or LE edema. - History Source History Provided By: Patient Limitations to Obtaining History: No Limitations - Past Medical History Cardio/Vascular: Yes: AFIB (paroxysmal atrial fibrillation. Normal coronaries on 2013 cath. 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) Hepatobiliary: Yes: Cholelithiasis Musculoskeletal: Yes: Chronic low back pain, Osteoarthritis Endocrine: Yes: Osteopenia Additional Medical History: SBO - Past Surgical History Past Surgical History: Yes: Appendectomy (SBO ABDOMINAL WALL HERNIA S/P REPAIR) , Breast Biopsy, Cataract Removal, Colectomy, Colonoscopy, Hysterectomy, Upper Endoscopy (colon adenomas removed, Schatzk ring dilated) - Alcohol/Substance Use Hx Alcohol Use: No History of Substance Use: reports: None - Smoking History Smoking history: Never smoked Have you smoked in the past 12 months: No Aproximately how many cigarettes per day: 0 - Social History Usual Living Arrangement: With Spouse ADL: Independent Occupation: retired [employer] History of Recent Travel: No Home Medications - Allergies Allergies/Adverse Reactions: Allergies Allergy/AdvReac Type Severity Reaction Status Date / Time No Known Allergies Allergy Verified 07/02/17 17:00 - Home Medications Home Medications: Ambulatory Orders Acetaminophen [Tylenol .Regular Strength -] 650 mg PO Q6H PRN #0 tablet Apixaban [Eliquis -] 5 mg PO BID #60 tablet 12/09/15 Furosemide [Lasix -] 20 mg PO DAILY #7 tablet 12/09/15 Gabapentin [Neurontin -] 100 mg PO TID #90 capsule 12/09/15 Sotalol HCl [Betapace -] 80 mg PO BID #60 tablet 12/09/15 Valsartan [Diovan] 40 mg PO DAILY #0 tablet 12/09/15 Family Disease History - Family Disease History Family Disease History: Diabetes: Son, CA: Sister (breast and uterine cancers), Other: Father (ASHD), Mother (CVA) Review of Systems - Review of Systems Constitutional: reports: Lethargy, Weakness Respiratory: reports: Cough, SOB, Wheezing Vital Signs: Vital Signs Temperature 97.7 F 07/03/17 17:30 Pulse Rate 80 07/03/17 17:30 Respiratory Rate 18 07/03/17 17:30 Blood Pressure 143/73 07/03/17 17:30 O2 Sat by Pulse Oximetry (%) 97 07/03/17 17:30 Constitutional: Yes: No Distress, Calm Neck: Yes: Supple Respiratory: Yes: Regular, Diminished Gastrointestinal: Yes: Normal Bowel Sounds, Soft, Abdomen, Obese Cardiovascular: Yes: Tachycardia, Pulse Irregular JVD: No Carotid Bruit: No Heart Sounds: Yes: S1, S2 Murmur: Yes: Systolic Murmur, Grade 1 Edema: No - Other Data Labs, Other Data: CBC, BMP 07/03/17 07:10 07/03/17 07:09 INR, PTT INR 1.72 (0.82-1.09) H 07/02/17 17:25 Troponin, BNP 07/03/17 07/03/17 00:20 07:09 Troponin I < 0.02 < 0.02 Troponin, BNP 07/03/17 07/03/17 00:20 07:09 Troponin I < 0.02 < 0.02 Afib @ 109 LVH QTc 444msec Ejection Fraction %: LVEF > or = 40 % Imaging - Results Cat Scan: Report Reviewed (patchy consolidation RLL, RML atelectasis) Problem List - Problems (1) COPD (chronic obstructive pulmonary disease) Code(s): J44.9 - CHRONIC OBSTRUCTIVE PULMONARY DISEASE, UNSPECIFIED Qualifiers: COPD type: unspecified COPD Qualified Code(s): J44.9 - Chronic obstructive pulmonary disease, unspecified (2) Palpitations Code(s): R00.2 - PALPITATIONS (3) Paroxysmal atrial fibrillation Code(s): I48.0 - PAROXYSMAL ATRIAL FIBRILLATION (4) Pneumonia Code(s): J18.9 - PNEUMONIA, UNSPECIFIED ORGANISM (5) Coronary artery disease Code(s): I25.10 - ATHSCL HEART DISEASE OF [place] CORONARY ARTERY W/O ANG PCTRS Qualifiers: Coronary Disease-Associated Artery/Lesion type: [place] artery [place] vs. transplanted heart: [place] heart Associated angina: without angina Qualified Code(s): I25.10 - Atherosclerotic heart disease of [place] coronary artery without angina pectoris (6) Diastolic dysfunction without heart failure Code(s): I51.9 - HEART DISEASE, UNSPECIFIED (7) HTN (hypertension) Code(s): I10 - ESSENTIAL (PRIMARY) HYPERTENSION Qualifiers: Hypertension type: essential hypertension Qualified Code(s): I10 - Essential (primary) hypertension (8) Hyperlipemia Code(s): E78.5 - HYPERLIPIDEMIA, UNSPECIFIED Qualifiers: Hyperlipidemia type: pure hypercholesterolemia Qualified Code(s): E78.00 - Pure hypercholesterolemia, unspecified; E78.0 - Pure hypercholesterolemia Assessment/Plan 04/2015 Echo: Normal LV size and fxn, mild-mod MR, mild AR 1. PNA underlying COPD 2. Recurrent symptomatic atrial fibrillation compliant on NOAC's 3. CAD non-obstructive CAD angina pectoris, stable 5. LV diastolic dysfunction 6. HTN/HCVD 7. DM 8. Hypercholesterolemia 9. History of PTE 10. History of recurrent small bowel obstruction post diagnostic laparoscopy/ laparotomy and extensive lysis of adhesions with small bowel resection PLAN: 1. Continue Sotalol 80 bid, Diovan 40 qd and Lasix 20 qd as hemodynamics tolerate 2. Continue NOAC (Eliquis 5 bid) with close monitoring of CBC 3. BD, IV steroids with GI protection, empiric abx course, O2 as needed 4. Given confirmed compliance with Eliquis, plan for DCCV without VIDA-guidance once pulmonary symptoms stabilize, review more recent outpatient echo results 5. Thank you for consultative opportunity
[2017-07-03] MEDS ORDERED: PT OWN MED DRAWER 7, Y5N ONE (21:58)
[2017-07-03] MEDS: CEFTRIAXONE 1 G/50 ML PREMIX 50 ML IVPB SCH (22:12)
[2017-07-03] MEDS: AZITHROMYCIN IVPB 500 MG in DEXTROSE 5%-WATER - 250 ML IVPB SCH (23:00)
[2017-07-04] MEDS: methylPREDNISolone NA SUCC 40 MG/1 ML VIAL IVPUSH SCH ×4 (03:15→22:43)
[2017-07-04] MEDS: GABAPENTIN 100 MG CAPSULE (FP) PO SCH ×3 (05:58→22:43)
[2017-07-04] MEDS: INSULIN SLIDING SCALE (NOVOLOG) 1 VIAL SQ SCH ×4 (06:04→23:30)
[2017-07-04] MEDS: ALBUTEROL SO4 2.5/IPRATROPIUM 0.5 INH SOL 3 ML VIAL.NEB. NEB SCH ×4 (07:20→20:00)
[2017-07-04 07:30] LABS: HEMATOCRIT 29.2 % (32.4-45.2); MCH 23.5 pg (25.7-33.7); MEAN CELL VOLUME 75.9 fl (80-96); MEAN PLT VOLUME 8.3 fl (7.5-11.1); PLATELET COUNT 358 K/MM3 (134-434); RBC 3.85 M/mm3 (3.60-5.2); RDW 16.7 % (11.6-15.6); WHITE BLOOD COUNT 22.4 K/mm3 (4.0-10.0)
[2017-07-04 08:03] LABS: ALBUMIN 2.4 g/dl (3.4-5.0); ANION GAP 11 (8-16); CHLORIDE 105 mmol/L (98-107); CO2 25 mmol/L (21-32); GLUCOSE,RANDOM 205 mg/dL (74-106); MAGNESIUM 1.5 mg/dL (1.8-2.4); POTASSIUM 4.2 mmol/L (3.5-5.1); SODIUM 141 mmol/L (136-145)
[2017-07-04 08:17] LABS: ALK PHOS 72 U/L (45-117); BILIRUBIN,TOTAL 0.3 mg/dL (0.2-1.0); BLOOD UREA NITROGEN 17 mg/dL (7-18); CALCIUM 8.5 mg/dL (8.5-10.1); CREATININE 0.7 mg/dL (0.55-1.02); SGOT/AST 10 U/L (15-37); SGPT/ALT 18 U/L (12-78); TOT PROT 5.8 g/dl (6.4-8.2)
[2017-07-04] MEDS ORDERED: PT OWN MED DRAWER 7, Y5N ONE ×2 (08:51→23:19)
[2017-07-04] MEDS: VALSARTAN 40 MG TABLET (FP) PO SCH (09:01)
[2017-07-04] MEDS: FUROSEMIDE 20 MG TABLET (FP) PO SCH (09:01)
[2017-07-04] MEDS: SOTALOL HCL 80 MG TABLET (FP) PO SCH ×2 (09:01→22:43)
[2017-07-04] MEDS: APIXABAN 5 MG TABLET PO SCH ×2 (09:01→22:43)
[2017-07-04 09:31] LABS: PLATELET ESTIMATE NORMAL
--- NOTE | 2017-07-04 13:57 | PN ---
Progress Note (short form) - Note Progress Note: Still with very congested cough. Pleuritic type CP. No hemoptysis. GENERAL: Awake, alert, and fully oriented, NAD HEAD: Normal with no signs of trauma. EYES: sclera anicteric, conjunctiva clear. No lid lag. EARS, NOSE, THROAT: Ears normal, nares patent, oropharynx clear without exudates. Moist mucous membranes. NECK: Normal range of motion, supple without lymphadenopathy, JVD, or masses. LUNGS: bilateral crackles at bases. No accessory muscle use. HEART: Regular rate and rhythm, normal S1 and S2 without murmur, rub or gallop. ABDOMEN: Soft, nontender, not distended, normoactive bowel sounds, no guarding, no rebound, no masses. MUSCULOSKELETAL: Normal range of motion at all joints. No bony deformities or tenderness. No CVA tenderness. UPPER EXTREMITIES: 2+ pulses, warm, well-perfused. No cyanosis. No clubbing. Cap refill <2 seconds. No peripheral edema. LOWER EXTREMITIES: 2+ pulses, warm, well-perfused. No calf tenderness. No peripheral edema. NEUROLOGICAL: Non-focal PSYCHIATRIC: Cooperative. Good eye contact. Appropriate mood and affect. SKIN: Warm, dry, normal turgor, no rashes or lesions noted. Laboratory Results - last 24 hr 07/03/17 07/03/17 07/04/17 17:16 20:54 05:56 WBC RBC Hgb Hct MCV MCH MCHC RDW Plt Count MPV Neutrophils % Neutrophils % (Manual) Band Neutrophils % Lymphocytes % Lymphocytes % (Manual) Monocytes % (Manual) Eosinophils % (Manual) Basophils % (Manual) Myelocytes % (Man) Metamyelocytes Platelet Estimate Sodium Potassium Chloride Carbon Dioxide Anion Gap BUN Creatinine Creat Clearance w eGFR POC Glucometer 252 317 236 Random Glucose Calcium Magnesium Total Bilirubin AST ALT Alkaline Phosphatase Total Protein Albumin 07/04/17 07/04/17 07/04/17 06:00 06:00 11:45 WBC 22.4 H D RBC 3.85 Hgb 9.0 L Hct 29.2 L MCV 75.9 L MCH 23.5 L MCHC 31.0 L RDW 16.7 H Plt Count 358 MPV 8.3 Neutrophils % No Result Required. Neutrophils % (Manual) 89.9 H Band Neutrophils % 0.0 Lymphocytes % No Result Required. Lymphocytes % (Manual) 10.1 Monocytes % (Manual) 0 L Eosinophils % (Manual) 0.0 Basophils % (Manual) 0.0 Myelocytes % (Man) 0 Metamyelocytes 0 Platelet Estimate Normal Sodium 141 Potassium 4.2 Chloride 105 Carbon Dioxide 25 Anion Gap 11 BUN 17 Creatinine 0.7 Creat Clearance w eGFR > 60 POC Glucometer 289 Random Glucose 205 H Calcium 8.5 Magnesium 1.5 L Total Bilirubin 0.3 D AST 10 L ALT 18 Alkaline Phosphatase 72 Total Protein 5.8 L Albumin 2.4 L Problem List - Problems (1) COPD (chronic obstructive pulmonary disease) Code(s): J44.9 - CHRONIC OBSTRUCTIVE PULMONARY DISEASE, UNSPECIFIED (2) Palpitations Code(s): R00.2 - PALPITATIONS (3) Paroxysmal atrial fibrillation Code(s): I48.0 - PAROXYSMAL ATRIAL FIBRILLATION (4) Pneumonia Code(s): J18.9 - PNEUMONIA, UNSPECIFIED ORGANISM (5) Anemia Code(s): D64.9 - ANEMIA, UNSPECIFIED (6) Electrolyte abnormality Code(s): E87.8 - OTH DISORDERS OF ELECTROLYTE AND FLUID BALANCE, NEC ASSESSMENT/PLAN: The patient is a 82 year old female, with a significant past medical history of SBO, hyperlipidemia, hypertension, COPD, DM, CKD, atrial fibrillation (on Eliquis), who presents to the emergency department with, palpitations, dyspnea with productive cough. Impression: CAP Rapid atrial fib now in sinus COPD HTN CKD Chronic anemia DM Plan: Follow cultures IV antibiotics IV steroids bronchodilators O2 as needed Telemetry monitoring glycemic control anticoagulation electrolyte correction Dr Santo
--- NOTE | 2017-07-04 17:21 | PN ---
Progress Note, Physician History of Present Illness: Continued nonproductive cough, back in sinus rhythm. - Current Medication List Current Medications: Active Medications Acetaminophen (Tylenol -) 650 mg PO Q6H PRN PRN Reason: FEVER Albuterol Sulfate (Ventolin 0.083% Nebulizer Soln -) 1 amp NEB Q4H PRN PRN Reason: SHORT OF BREATH/WHEEZING Albuterol/Ipratropium (Duoneb -) 1 amp NEB RQID [facility] Last Admin: 07/04/17 11:10 Dose: 1 amp Apixaban (Eliquis -) 5 mg PO BID [facility] Last Admin: 07/04/17 09:01 Dose: 5 mg Furosemide (Lasix -) 20 mg PO DAILY [facility] Last Admin: 07/04/17 09:01 Dose: 20 mg Gabapentin (Neurontin -) 100 mg PO TID [facility] Last Admin: 07/04/17 13:36 Dose: 100 mg Azithromycin 500 mg/ Dextrose 250 mls @ 250 mls/hr IVPB [facility] Last Admin: 07/03/17 23:00 Dose: 250 mls/hr CEFTRIAXONE 1 G/50 ML PREMIX (Ceftriaxone 1 Gm-D5w Bag) 50 mls @ 100 mls/hr IVPB [facility] Last Admin: 07/03/17 22:12 Dose: 100 mls/hr Insulin Aspart (Novolog Vial Sliding Scale -) 1 vial SQ [facility] PRN Reason: Protocol Last Admin: 07/03/17 22:12 Dose: 4 units Insulin Aspart (Novolog Vial Sliding Scale -) 1 vial SQ TIDAC [facility] PRN Reason: Protocol Last Admin: 07/04/17 17:16 Dose: 6 unit Methylprednisolone Sodium Succinate (Solu-Medrol -) 40 mg IVPUSH Q6H-IV [facility] Last Admin: 07/04/17 15:08 Dose: 40 mg Sotalol HCl (Betapace -) 80 mg PO BID [facility] Last Admin: 07/04/17 09:01 Dose: 80 mg Valsartan (Diovan -) 40 mg PO DAILY [facility] Last Admin: 07/04/17 09:01 Dose: 40 mg - Objective Vital Signs: Vital Signs Temperature 97.9 F 07/04/17 14:08 Pulse Rate 81 07/04/17 14:08 Respiratory Rate 20 07/04/17 14:08 Blood Pressure 148/69 07/04/17 14:08 O2 Sat by Pulse Oximetry (%) 97 07/04/17 08:46 Constitutional: Yes: No Distress, Calm Neck: Yes: Supple Cardiovascular: Yes: Regular Rate and Rhythm Respiratory: Yes: Regular, Cough, Diminished Gastrointestinal: Yes: Normal Bowel Sounds, Soft, Abdomen, Obese Edema: No Labs: CBC, BMP 07/04/17 06:00 07/04/17 06:00 INR, PTT INR 1.72 (0.82-1.09) H 07/02/17 17:25 - ....Imaging EKG: Report Reviewed (Tele: PAF->SR) Problem List - Problems (1) COPD (chronic obstructive pulmonary disease) Code(s): J44.9 - CHRONIC OBSTRUCTIVE PULMONARY DISEASE, UNSPECIFIED Qualifiers: COPD type: unspecified COPD Qualified Code(s): J44.9 - Chronic obstructive pulmonary disease, unspecified (2) Palpitations Code(s): R00.2 - PALPITATIONS (3) Paroxysmal atrial fibrillation Code(s): I48.0 - PAROXYSMAL ATRIAL FIBRILLATION (4) Pneumonia Code(s): J18.9 - PNEUMONIA, UNSPECIFIED ORGANISM (5) Coronary artery disease Code(s): I25.10 - ATHSCL HEART DISEASE OF [place] CORONARY ARTERY W/O ANG PCTRS Qualifiers: Coronary Disease-Associated Artery/Lesion type: [place] artery [place] vs. transplanted heart: [place] heart Associated angina: without angina Qualified Code(s): I25.10 - Atherosclerotic heart disease of [place] coronary artery without angina pectoris (6) Diastolic dysfunction without heart failure Code(s): I51.9 - HEART DISEASE, UNSPECIFIED (7) HTN (hypertension) Code(s): I10 - ESSENTIAL (PRIMARY) HYPERTENSION Qualifiers: Hypertension type: essential hypertension Qualified Code(s): I10 - Essential (primary) hypertension (8) Hyperlipemia Code(s): E78.5 - HYPERLIPIDEMIA, UNSPECIFIED Qualifiers: Hyperlipidemia type: pure hypercholesterolemia Qualified Code(s): E78.00 - Pure hypercholesterolemia, unspecified; E78.0 - Pure hypercholesterolemia Assessment/Plan 04/2015 Echo: Normal LV size and fxn, mild-mod MR, mild AR 1. PNA underlying COPD 2. Recurrent symptomatic paroxysmal atrial fibrillation->SR compliant on NOAC's 3. CAD non-obstructive CAD angina pectoris, stable 5. LV diastolic dysfunction 6. HTN/HCVD 7. DM 8. Hypercholesterolemia 9. History of PTE 10. History of recurrent small bowel obstruction post diagnostic laparoscopy/ laparotomy and extensive lysis of adhesions with small bowel resection 11. Anemia PLAN: 1. Continue Sotalol 80 bid, Diovan 40 qd and Lasix 20 qd as hemodynamics tolerate 2. Continue NOAC (Eliquis 5 bid) with close monitoring of CBC 3. BD, IV steroids with GI protection, empiric abx course per C&S, O2 as needed 4. Review more recent outpatient echo results
--- NOTE | 2017-07-04 21:32 | PN ---
Progress Note, Physician Chief Complaint: Pneumonia, New onset afib History of Present Illness: NAD, still coughing, musculoskelatal CP Has converted back to SR on Tele Seen by Cardiology on AC IV abx - Current Medication List Current Medications: Active Medications Acetaminophen (Tylenol -) 650 mg PO Q6H PRN PRN Reason: FEVER Albuterol Sulfate (Ventolin 0.083% Nebulizer Soln -) 1 amp NEB Q4H PRN PRN Reason: SHORT OF BREATH/WHEEZING Albuterol/Ipratropium (Duoneb -) 1 amp NEB RQID [facility] Last Admin: 07/04/17 16:00 Dose: 1 amp Apixaban (Eliquis -) 5 mg PO BID [facility] Last Admin: 07/04/17 09:01 Dose: 5 mg Furosemide (Lasix -) 20 mg PO DAILY [facility] Last Admin: 07/04/17 09:01 Dose: 20 mg Gabapentin (Neurontin -) 100 mg PO TID [facility] Last Admin: 07/04/17 13:36 Dose: 100 mg Azithromycin 500 mg/ Dextrose 250 mls @ 250 mls/hr IVPB [facility] Last Admin: 07/03/17 23:00 Dose: 250 mls/hr CEFTRIAXONE 1 G/50 ML PREMIX (Ceftriaxone 1 Gm-D5w Bag) 50 mls @ 100 mls/hr IVPB [facility] Last Admin: 07/03/17 22:12 Dose: 100 mls/hr Insulin Aspart (Novolog Vial Sliding Scale -) 1 vial SQ [facility] PRN Reason: Protocol Last Admin: 07/03/17 22:12 Dose: 4 units Insulin Aspart (Novolog Vial Sliding Scale -) 1 vial SQ TIDAC [facility] PRN Reason: Protocol Last Admin: 07/04/17 17:16 Dose: 6 unit Methylprednisolone Sodium Succinate (Solu-Medrol -) 40 mg IVPUSH Q6H-IV [facility] Last Admin: 07/04/17 15:08 Dose: 40 mg Sotalol HCl (Betapace -) 80 mg PO BID [facility] Last Admin: 07/04/17 09:01 Dose: 80 mg Valsartan (Diovan -) 40 mg PO DAILY [facility] Last Admin: 07/04/17 09:01 Dose: 40 mg - Objective Vital Signs: Vital Signs Temperature 97.9 F 07/04/17 17:25 Pulse Rate 78 07/04/17 17:25 Respiratory Rate 18 07/04/17 17:25 Blood Pressure 151/75 07/04/17 17:25 O2 Sat by Pulse Oximetry (%) 97 07/04/17 08:46 Constitutional: Yes: Well Nourished, No Distress, Calm Cardiovascular: Yes: Regular Rate and Rhythm Respiratory: Yes: Regular Gastrointestinal: Yes: Normal Bowel Sounds, Soft Musculoskeletal: Yes: WNL Extremities: Yes: WNL Edema: No Peripheral Pulses WNL: Yes Neurological: Yes: Alert, Oriented Psychiatric: Yes: Alert, Oriented Labs: CBC, BMP 07/04/17 06:00 07/04/17 06:00 INR, PTT INR 1.72 (0.82-1.09) H 07/02/17 17:25 Problem List - Problems (1) COPD (chronic obstructive pulmonary disease) Assessment/Plan: -seen by pulmonary -IV steroids -IV abx -bronchodilators -nasal O2 PRN, on RA at the moment Code(s): J44.9 - CHRONIC OBSTRUCTIVE PULMONARY DISEASE, UNSPECIFIED Qualifiers: COPD type: unspecified COPD Qualified Code(s): J44.9 - Chronic obstructive pulmonary disease, unspecified (2) Paroxysmal atrial fibrillation Assessment/Plan: -seen by cardiology -on AC -tele monitoring Code(s): I48.0 - PAROXYSMAL ATRIAL FIBRILLATION (3) Pneumonia Assessment/Plan: -seen by pulmonary -IV steroids -IV abx -bronchodilators -nasal O2 PRN, on RA at the moment Code(s): J18.9 - PNEUMONIA, UNSPECIFIED ORGANISM (4) Anemia Assessment/Plan: -2/2 chronic disease -check B12, Iron profile, Thyroid profile, folate -stool ob -hematology consult Code(s): D64.9 - ANEMIA, UNSPECIFIED (5) Hypomagnesemia Assessment/Plan: -start magnesium 400 po bid Code(s): E83.42 - HYPOMAGNESEMIA (6) Leukocytosis Assessment/Plan: 2/2 steroids Code(s): D72.829 - ELEVATED WHITE BLOOD CELL COUNT, UNSPECIFIED (7) Type 2 diabetes mellitus with hyperglycemia Assessment/Plan: -insulin sliding scale -last A1c 8.3 -endocrinology consult -diabetic diet Code(s): E11.65 - TYPE 2 DIABETES MELLITUS WITH HYPERGLYCEMIA Assessment/Plan see problem list
[2017-07-04] MEDS: MAGNESIUM OXIDE 400 MG TABLET (FP) PO SCH (22:43)
[2017-07-04] MEDS: CEFTRIAXONE 1 G/50 ML PREMIX 50 ML IVPB SCH (22:43)
[2017-07-04] MEDS: AZITHROMYCIN IVPB 500 MG in DEXTROSE 5%-WATER - 250 ML IVPB SCH (23:30)
[2017-07-05] MEDS: methylPREDNISolone NA SUCC 40 MG/1 ML VIAL IVPUSH SCH ×4 (02:34→20:40)
[2017-07-05] MEDS: GABAPENTIN 100 MG CAPSULE (FP) PO SCH ×3 (05:19→23:08)
[2017-07-05] MEDS: ACETAMINOPHEN 325 MG TABLET (FP) PO PRN (05:19)
[2017-07-05] MEDS: INSULIN SLIDING SCALE (NOVOLOG) 1 VIAL SQ SCH ×4 (06:23→23:15)
[2017-07-05] MEDS ORDERED: INSULIN (NOVOLOG) ASPART 100 UNITS/ML 10ML VIAL ONE ×2 (06:36→11:28)
[2017-07-05 07:23] LABS: BASO % 0.1 % (0-2.0); HEMATOCRIT 28.5 % (32.4-45.2); HEMOGLOBIN 8.8 GM/dL (10.7-15.3); LYMPH % 5.4 % (8-40); MCH 23.3 pg (25.7-33.7); MCHC 30.8 g/dl (32.0-36.0); MEAN CELL VOLUME 75.6 fl (80-96); MEAN PLT VOLUME 8.4 fl (7.5-11.1); MONO % 1.7 % (3.8-10.2); NEUT % 92.8 % (42.8-82.8); PLATELET COUNT 320 K/MM3 (134-434); RBC 3.77 M/mm3 (3.60-5.2); RDW 16.7 % (11.6-15.6); WHITE BLOOD COUNT 18.5 K/mm3 (4.0-10.0)
[2017-07-05 07:29] LABS: ALBUMIN 2.3 g/dl (3.4-5.0); ANION GAP 8 (8-16); BLOOD UREA NITROGEN 24 mg/dL (7-18); CALCIUM 8.4 mg/dL (8.5-10.1); CHLORIDE 104 mmol/L (98-107); CO2 29 mmol/L (21-32); CREATININE 0.8 mg/dL (0.55-1.02); GLUCOSE,RANDOM 220 mg/dL (74-106); POTASSIUM 4.1 mmol/L (3.5-5.1); SGOT/AST 9 U/L (15-37); SGPT/ALT 18 U/L (12-78); SODIUM 141 mmol/L (136-145)
[2017-07-05 07:38] LABS: ALK PHOS 70 U/L (45-117); BILIRUBIN,TOTAL 0.3 mg/dL (0.2-1.0); TOT PROT 5.4 g/dl (6.4-8.2)
[2017-07-05] MEDS: ALBUTEROL SO4 2.5/IPRATROPIUM 0.5 INH SOL 3 ML VIAL.NEB. NEB SCH ×4 (08:49→20:54)
[2017-07-05] MEDS: MAGNESIUM OXIDE 400 MG TABLET (FP) PO SCH ×2 (09:31→23:08)
[2017-07-05] MEDS: FUROSEMIDE 20 MG TABLET (FP) PO SCH (09:32)
[2017-07-05] MEDS: VALSARTAN 40 MG TABLET (FP) PO SCH (09:32)
[2017-07-05] MEDS: SOTALOL HCL 80 MG TABLET (FP) PO SCH ×2 (09:32→23:07)
[2017-07-05] MEDS: APIXABAN 5 MG TABLET PO SCH ×2 (09:32→23:08)
--- NOTE | 2017-07-05 12:14 | PN ---
Progress Note, Physician History of Present Illness: Continued nonproductive cough amenable to codeine, remains in sinus rhythm. - Current Medication List Current Medications: Active Medications Acetaminophen (Tylenol -) 650 mg PO Q6H PRN PRN Reason: FEVER Last Admin: 07/05/17 05:19 Dose: 650 mg Albuterol Sulfate (Ventolin 0.083% Nebulizer Soln -) 1 amp NEB Q4H PRN PRN Reason: SHORT OF BREATH/WHEEZING Albuterol/Ipratropium (Duoneb -) 1 amp NEB RQID [facility] Last Admin: 07/05/17 08:49 Dose: 1 amp Apixaban (Eliquis -) 5 mg PO BID [facility] Last Admin: 07/05/17 09:32 Dose: 5 mg Furosemide (Lasix -) 20 mg PO DAILY [facility] Last Admin: 07/05/17 09:32 Dose: 20 mg Gabapentin (Neurontin -) 100 mg PO TID [facility] Last Admin: 07/05/17 05:19 Dose: 100 mg Azithromycin 500 mg/ Dextrose 250 mls @ 250 mls/hr IVPB [facility] Last Admin: 07/04/17 23:30 Dose: 250 mls/hr CEFTRIAXONE 1 G/50 ML PREMIX (Ceftriaxone 1 Gm-D5w Bag) 50 mls @ 100 mls/hr IVPB [facility] Last Admin: 07/04/17 22:43 Dose: 100 mls/hr Insulin Aspart (Novolog Vial Sliding Scale -) 1 vial SQ [facility] PRN Reason: Protocol Last Admin: 07/04/17 23:30 Dose: 6 units Insulin Aspart (Novolog Vial Sliding Scale -) 1 vial SQ TIDAC [facility] PRN Reason: Protocol Last Admin: 07/05/17 12:11 Dose: 6 unit Magnesium Oxide (Mag-Ox -) 400 mg PO BID [facility] Last Admin: 07/05/17 09:31 Dose: 400 mg Methylprednisolone Sodium Succinate (Solu-Medrol -) 40 mg IVPUSH Q6H-IV [facility] Last Admin: 07/05/17 08:16 Dose: 40 mg Sotalol HCl (Betapace -) 80 mg PO BID [facility] Last Admin: 07/05/17 09:32 Dose: 80 mg Valsartan (Diovan -) 40 mg PO DAILY [facility] Last Admin: 07/05/17 09:32 Dose: 40 mg - Objective Vital Signs: Vital Signs Temperature 97.6 F 07/05/17 06:00 Pulse Rate 70 07/05/17 06:00 Respiratory Rate 18 07/05/17 06:00 Blood Pressure 157/81 07/05/17 06:00 O2 Sat by Pulse Oximetry (%) 97 07/04/17 08:46 Constitutional: Yes: No Distress, Calm Neck: Yes: Supple Cardiovascular: Yes: Regular Rate and Rhythm Respiratory: Yes: Regular, Diminished Gastrointestinal: Yes: Normal Bowel Sounds, Soft, Abdomen, Obese Edema: No Labs: CBC, BMP 07/05/17 05:45 07/05/17 05:45 INR, PTT INR 1.72 (0.82-1.09) H 07/02/17 17:25 - ....Imaging EKG: Report Reviewed (Tele: SR lizbet [facility]) Problem List - Problems (1) COPD (chronic obstructive pulmonary disease) Code(s): J44.9 - CHRONIC OBSTRUCTIVE PULMONARY DISEASE, UNSPECIFIED Qualifiers: COPD type: unspecified COPD Qualified Code(s): J44.9 - Chronic obstructive pulmonary disease, unspecified (2) Palpitations Code(s): R00.2 - PALPITATIONS (3) Paroxysmal atrial fibrillation Code(s): I48.0 - PAROXYSMAL ATRIAL FIBRILLATION (4) Pneumonia Code(s): J18.9 - PNEUMONIA, UNSPECIFIED ORGANISM (5) Coronary artery disease Code(s): I25.10 - ATHSCL HEART DISEASE OF [place] CORONARY ARTERY W/O ANG PCTRS Qualifiers: Coronary Disease-Associated Artery/Lesion type: [place] artery [place] vs. transplanted heart: [place] heart Associated angina: without angina Qualified Code(s): I25.10 - Atherosclerotic heart disease of [place] coronary artery without angina pectoris (6) Diastolic dysfunction without heart failure Code(s): I51.9 - HEART DISEASE, UNSPECIFIED (7) HTN (hypertension) Code(s): I10 - ESSENTIAL (PRIMARY) HYPERTENSION Qualifiers: Hypertension type: essential hypertension Qualified Code(s): I10 - Essential (primary) hypertension (8) Hyperlipemia Code(s): E78.5 - HYPERLIPIDEMIA, UNSPECIFIED Qualifiers: Hyperlipidemia type: pure hypercholesterolemia Qualified Code(s): E78.00 - Pure hypercholesterolemia, unspecified; E78.0 - Pure hypercholesterolemia Assessment/Plan 04/2015 Echo: Normal LV size and fxn, mild-mod MR, mild AR 1. PNA underlying COPD 2. Recurrent symptomatic paroxysmal atrial fibrillation->SR compliant on NOAC's 3. CAD non-obstructive CAD angina pectoris, stable 5. LV diastolic dysfunction 6. HTN/HCVD 7. DM 8. Hypercholesterolemia 9. History of PTE 10. History of recurrent small bowel obstruction post diagnostic laparoscopy/ laparotomy and extensive lysis of adhesions with small bowel resection 11. Anemia PLAN: 1. Continue Sotalol 80 bid, Diovan 40 qd and Lasix 20 qd as hemodynamics tolerate 2. Continue NOAC (Eliquis 5 bid) with close monitoring of CBC 3. BD, IV steroids with GI protection, empiric abx course per C&S, O2 as needed 4. Review more recent outpatient echo results
[2017-07-05] MEDS ORDERED: guaiFENesin/CODEINE 5 ML UNIT-DOSE CUPS PO PRN (13:23)
--- NOTE | 2017-07-05 13:23 | PN ---
Progress Note (short form) - Note Progress Note: Still with congested cough, but better. Caused insomnia last night. Less pleuritic type CP. No hemoptysis. Intake & Output 07/02/17 07/03/17 07/04/17 07/05/17 23:59 23:59 23:59 23:59 Intake Total 800 520 350 Balance 800 520 350 Weight 170 lb 170 lb Last Vital Signs Temp Pulse Resp BP Pulse Ox 98.3 F 68 18 167/78 94 L 07/05/17 10:00 07/05/17 10:00 07/05/17 10:00 07/05/17 10:00 07/05/17 09:00 Active Medications Acetaminophen (Tylenol -) 650 mg PO Q6H PRN PRN Reason: FEVER Last Admin: 07/05/17 05:19 Dose: 650 mg Albuterol Sulfate (Ventolin 0.083% Nebulizer Soln -) 1 amp NEB Q4H PRN PRN Reason: SHORT OF BREATH/WHEEZING Albuterol/Ipratropium (Duoneb -) 1 amp NEB RQID [facility] Last Admin: 07/05/17 12:25 Dose: 1 amp Apixaban (Eliquis -) 5 mg PO BID [facility] Last Admin: 07/05/17 09:32 Dose: 5 mg Furosemide (Lasix -) 20 mg PO DAILY [facility] Last Admin: 07/05/17 09:32 Dose: 20 mg Gabapentin (Neurontin -) 100 mg PO TID [facility] Last Admin: 07/05/17 05:19 Dose: 100 mg Azithromycin 500 mg/ Dextrose 250 mls @ 250 mls/hr IVPB [facility] Last Admin: 07/04/17 23:30 Dose: 250 mls/hr CEFTRIAXONE 1 G/50 ML PREMIX (Ceftriaxone 1 Gm-D5w Bag) 50 mls @ 100 mls/hr IVPB [facility] Last Admin: 07/04/17 22:43 Dose: 100 mls/hr Insulin Aspart (Novolog Vial Sliding Scale -) 1 vial SQ HS [facility] PRN Reason: Protocol Last Admin: 07/04/17 23:30 Dose: 6 units Insulin Aspart (Novolog Vial Sliding Scale -) 1 vial SQ TIDAC [facility] PRN Reason: Protocol Last Admin: 07/05/17 12:11 Dose: 6 unit Magnesium Oxide (Mag-Ox -) 400 mg PO BID [facility] Last Admin: 07/05/17 09:31 Dose: 400 mg Methylprednisolone Sodium Succinate (Solu-Medrol -) 40 mg IVPUSH Q6H-IV [facility] Last Admin: 07/05/17 08:16 Dose: 40 mg Pantoprazole Sodium (Protonix -) 20 mg PO DAILY [facility] Sotalol HCl (Betapace -) 80 mg PO BID [facility] Last Admin: 07/05/17 09:32 Dose: 80 mg Valsartan (Diovan -) 40 mg PO DAILY [facility] Last Admin: 07/05/17 09:32 Dose: 40 mg GENERAL: Awake, alert, and fully oriented, NAD HEAD: Normal with no signs of trauma. EYES: sclera anicteric, conjunctiva clear. No lid lag. EARS, NOSE, THROAT: Ears normal, nares patent, oropharynx clear without exudates. Moist mucous membranes. NECK: Normal range of motion, supple without lymphadenopathy, JVD, or masses. LUNGS: bilateral crackles at bases. Scattered wheeze. No accessory muscle use. HEART: Regular rate and rhythm, normal S1 and S2 without murmur, rub or gallop. ABDOMEN: Soft, nontender, not distended, normoactive bowel sounds, no guarding, no rebound, no masses. MUSCULOSKELETAL: Normal range of motion at all joints. No bony deformities or tenderness. No CVA tenderness. UPPER EXTREMITIES: 2+ pulses, warm, well-perfused. No cyanosis. No clubbing. Cap refill <2 seconds. No peripheral edema. LOWER EXTREMITIES: 2+ pulses, warm, well-perfused. No calf tenderness. No peripheral edema. NEUROLOGICAL: Non-focal PSYCHIATRIC: Cooperative. Good eye contact. Appropriate mood and affect. SKIN: Warm, dry, normal turgor, no rashes or lesions noted. Laboratory Results - last 24 hr 07/04/17 07/04/17 07/05/17 16:22 22:52 05:16 WBC RBC Hgb Hct MCV MCH MCHC RDW Plt Count MPV Neutrophils % Lymphocytes % Monocytes % Eosinophils % Basophils % Sodium Potassium Chloride Carbon Dioxide Anion Gap BUN Creatinine Creat Clearance w eGFR POC Glucometer 332 368 232 Random Glucose Calcium Ferritin Total Bilirubin AST ALT Alkaline Phosphatase Total Protein Albumin Vitamin B12 Serum Folate TSH Free T4 07/05/17 07/05/17 07/05/17 05:45 05:45 11:10 WBC 18.5 H RBC 3.77 Hgb 8.8 L Hct 28.5 L MCV 75.6 L MCH 23.3 L MCHC 30.8 L RDW 16.7 H Plt Count 320 MPV 8.4 Neutrophils % 92.8 H Lymphocytes % 5.4 L D Monocytes % 1.7 L Eosinophils % 0.0 Basophils % 0.1 Sodium 141 Potassium 4.1 Chloride 104 Carbon Dioxide 29 Anion Gap 8 BUN 24 H Creatinine 0.8 Creat Clearance w eGFR > 60 POC Glucometer 310 Random Glucose 220 H Calcium 8.4 L Ferritin 40.582 Total Bilirubin 0.3 AST 9 L ALT 18 Alkaline Phosphatase 70 Total Protein 5.4 L Albumin 2.3 L Vitamin B12 1040 H Serum Folate 22 H TSH 0.46 Free T4 0.90 Problem List - Problems (1) COPD (chronic obstructive pulmonary disease) Code(s): J44.9 - CHRONIC OBSTRUCTIVE PULMONARY DISEASE, UNSPECIFIED (2) Palpitations Code(s): R00.2 - PALPITATIONS (3) Paroxysmal atrial fibrillation Code(s): I48.0 - PAROXYSMAL ATRIAL FIBRILLATION (4) Pneumonia Code(s): J18.9 - PNEUMONIA, UNSPECIFIED ORGANISM (5) Anemia Code(s): D64.9 - ANEMIA, UNSPECIFIED (6) Electrolyte abnormality Code(s): E87.8 - OTH DISORDERS OF ELECTROLYTE AND FLUID BALANCE, NEC ASSESSMENT/PLAN: The patient is a 82 year old female, with a significant past medical history of SBO, hyperlipidemia, hypertension, COPD, DM, CKD, atrial fibrillation (on Eliquis), who presents to the emergency department with, palpitations, dyspnea with productive cough. Impression: CAP Rapid atrial fib now in sinus COPD HTN CKD Chronic anemia DM Plan: Robitussin AC IV antibiotics IV steroids bronchodilators O2 as needed Telemetry monitoring glycemic control anticoagulation Dr Santo
--- NOTE | 2017-07-05 13:55 | PN ---
Progress Note (short form) - Note Progress Note: still with congested cough no fevers Vital Signs Period Temp Pulse Resp BP Sys/Gonzales Pulse Ox Last 24 Hr 97.5 F-98.3 F 68-81 18-20 144-167/65-81 94 cor-rrr lungs bibasilar crackles abd soft,nt ext no edema CBC, BMP 07/05/17 05:45 07/05/17 05:45 Microbiology 07/02/17 21:50 Blood - Peripheral Venous Blood Culture - Preliminary NO GROWTH OBTAINED AFTER 48 HOURS, INCUBATION TO CONTINUE FOR 3 DAYS. 07/02/17 21:50 Blood - Peripheral Venous Blood Culture - Preliminary NO GROWTH OBTAINED AFTER 48 HOURS, INCUBATION TO CONTINUE FOR 3 DAYS. 07/03/17 17:33 Urine For Antigen Detection Legionella Antigen - Final 07/03/17 17:33 Urine For Antigen Detection Streptococcus pneumoniae Antigen (M - Final 07/03/17 02:30 Nasopharyngeal Swab Influenza Types A,B Antigen (KADE) - Final 07/03/17 02:30 Nasopharyngeal Swab - Final Current Medications Acetaminophen (Tylenol -) 650 mg PO Q6H PRN PRN Reason: FEVER Last Admin: 07/05/17 05:19 Dose: 650 mg Albuterol Sulfate (Ventolin 0.083% Nebulizer Soln -) 1 amp NEB Q4H PRN PRN Reason: SHORT OF BREATH/WHEEZING Albuterol/Ipratropium (Duoneb -) 1 amp NEB RQID [facility] Last Admin: 07/05/17 12:25 Dose: 1 amp Apixaban (Eliquis -) 5 mg PO BID [facility] Last Admin: 07/05/17 09:32 Dose: 5 mg Furosemide (Lasix -) 20 mg PO DAILY [facility] Last Admin: 07/05/17 09:32 Dose: 20 mg Gabapentin (Neurontin -) 100 mg PO TID [facility] Last Admin: 07/05/17 13:42 Dose: 100 mg Guaifenesin/Codeine Phosphate (Robitussin Ac -) 5 ml PO TID PRN PRN Reason: COUGH CEFTRIAXONE 1 G/50 ML PREMIX (Ceftriaxone 1 Gm-D5w Bag) 50 mls @ 100 mls/hr IVPB [facility] Last Admin: 07/04/17 22:43 Dose: 100 mls/hr Insulin Aspart (Novolog Vial Sliding Scale -) 1 vial SQ [facility] PRN Reason: Protocol Last Admin: 07/04/17 23:30 Dose: 6 units Insulin Aspart (Novolog Vial Sliding Scale -) 1 vial SQ TIDAC [facility] PRN Reason: Protocol Last Admin: 07/05/17 12:11 Dose: 6 unit Magnesium Oxide (Mag-Ox -) 400 mg PO BID [facility] Last Admin: 07/05/17 09:31 Dose: 400 mg Methylprednisolone Sodium Succinate (Solu-Medrol -) 40 mg IVPUSH Q6H-IV [facility] Last Admin: 07/05/17 08:16 Dose: 40 mg Pantoprazole Sodium (Protonix -) 20 mg PO DAILY [facility] Sotalol HCl (Betapace -) 80 mg PO BID [facility] Last Admin: 07/05/17 09:32 Dose: 80 mg Valsartan (Diovan -) 40 mg PO DAILY [facility] Last Admin: 07/05/17 09:32 Dose: 40 mg a/p continued cough RLL pneumonia- rocephin/zithromax to continue suspect leukocytosis is secondary to steroids switch zithromax to po she is complaining of pain with infusion esr/crp history of copd Problem List - Problems (1) Pneumonia Code(s): J18.9 - PNEUMONIA, UNSPECIFIED ORGANISM (2) COPD (chronic obstructive pulmonary disease) Code(s): J44.9 - CHRONIC OBSTRUCTIVE PULMONARY DISEASE, UNSPECIFIED Qualifiers: COPD type: unspecified COPD Qualified Code(s): J44.9 - Chronic obstructive pulmonary disease, unspecified
--- NOTE | 2017-07-05 18:06 | PN ---
Progress Note, Physician Chief Complaint: Pneumonia, New onset afib History of Present Illness: NAD, still coughing, musculoskelatal CP Has converted back to SR on Tele Seen by Cardiology on AC IV abx IV steroids - Current Medication List Current Medications: Active Medications Acetaminophen (Tylenol -) 650 mg PO Q6H PRN PRN Reason: FEVER Last Admin: 07/05/17 05:19 Dose: 650 mg Albuterol Sulfate (Ventolin 0.083% Nebulizer Soln -) 1 amp NEB Q4H PRN PRN Reason: SHORT OF BREATH/WHEEZING Albuterol/Ipratropium (Duoneb -) 1 amp NEB RQID [facility] Last Admin: 07/05/17 16:00 Dose: 1 amp Apixaban (Eliquis -) 5 mg PO BID [facility] Last Admin: 07/05/17 09:32 Dose: 5 mg Furosemide (Lasix -) 20 mg PO DAILY [facility] Last Admin: 07/05/17 09:32 Dose: 20 mg Gabapentin (Neurontin -) 100 mg PO TID [facility] Last Admin: 07/05/17 13:42 Dose: 100 mg Guaifenesin/Codeine Phosphate (Robitussin Ac -) 5 ml PO TID PRN PRN Reason: COUGH Last Admin: 07/05/17 14:28 Dose: 5 ml CEFTRIAXONE 1 G/50 ML PREMIX (Ceftriaxone 1 Gm-D5w Bag) 50 mls @ 100 mls/hr IVPB [facility] Last Admin: 07/04/17 22:43 Dose: 100 mls/hr Insulin Aspart (Novolog Vial Sliding Scale -) 1 vial SQ [facility] PRN Reason: Protocol Last Admin: 07/04/17 23:30 Dose: 6 units Insulin Aspart (Novolog Vial Sliding Scale -) 1 vial SQ TIDAC [facility] PRN Reason: Protocol Last Admin: 07/05/17 17:04 Dose: 3 unit Magnesium Oxide (Mag-Ox -) 400 mg PO BID [facility] Last Admin: 07/05/17 09:31 Dose: 400 mg Methylprednisolone Sodium Succinate (Solu-Medrol -) 40 mg IVPUSH Q6H-IV [facility] Last Admin: 07/05/17 14:28 Dose: 40 mg Pantoprazole Sodium (Protonix -) 20 mg PO DAILY [facility] Senna (Senna -) 1 tab PO [facility] Sotalol HCl (Betapace -) 80 mg PO BID [facility] Last Admin: 07/05/17 09:32 Dose: 80 mg Valsartan (Diovan -) 40 mg PO DAILY [facility] Last Admin: 07/05/17 09:32 Dose: 40 mg - Objective Vital Signs: Vital Signs Temperature 97.7 F 07/05/17 18:02 Pulse Rate 61 07/05/17 18:02 Respiratory Rate 20 07/05/17 18:02 Blood Pressure 153/76 07/05/17 18:02 O2 Sat by Pulse Oximetry (%) 94 L 07/05/17 09:00 Constitutional: Yes: Well Nourished, No Distress, Calm Cardiovascular: Yes: Regular Rate and Rhythm Respiratory: Yes: Regular Gastrointestinal: Yes: Normal Bowel Sounds, Soft Musculoskeletal: Yes: WNL Extremities: Yes: WNL Edema: No Peripheral Pulses WNL: Yes Neurological: Yes: Alert, Oriented Psychiatric: Yes: Alert, Oriented Labs: CBC, BMP 07/05/17 05:45 07/05/17 05:45 INR, PTT INR 1.72 (0.82-1.09) H 07/02/17 17:25 Problem List - Problems (1) COPD (chronic obstructive pulmonary disease) Assessment/Plan: -seen by pulmonary -IV steroids -IV abx -bronchodilators -nasal O2 PRN, on RA at the moment Code(s): J44.9 - CHRONIC OBSTRUCTIVE PULMONARY DISEASE, UNSPECIFIED Qualifiers: COPD type: unspecified COPD Qualified Code(s): J44.9 - Chronic obstructive pulmonary disease, unspecified (2) Paroxysmal atrial fibrillation Assessment/Plan: -seen by cardiology -on AC -tele monitoring Code(s): I48.0 - PAROXYSMAL ATRIAL FIBRILLATION (3) Pneumonia Assessment/Plan: -seen by pulmonary -IV steroids -IV abx -bronchodilators -nasal O2 PRN, on RA at the moment Code(s): J18.9 - PNEUMONIA, UNSPECIFIED ORGANISM (4) Anemia Assessment/Plan: -2/2 chronic disease -B12,Thyroid profile, folate normal _iron profile pending -stool ob pending -hematology consult Code(s): D64.9 - ANEMIA, UNSPECIFIED (5) Hypomagnesemia Code(s): E83.42 - HYPOMAGNESEMIA (6) Leukocytosis Code(s): D72.829 - ELEVATED WHITE BLOOD CELL COUNT, UNSPECIFIED (7) Type 2 diabetes mellitus with hyperglycemia Code(s): E11.65 - TYPE 2 DIABETES MELLITUS WITH HYPERGLYCEMIA Assessment/Plan see problem list
[2017-07-05] MEDS ORDERED: BENZOCAINE/MENTH/CETYLPYRD CL 1 EACH LOZENGE MM PRN (18:31)
--- NOTE | 2017-07-05 19:18 | PN ---
Progress Note (short form) - Note Progress Note: This is an 82 year old female with a past medical history significant for COPD, Afib presented with SOB, nonproductive cough for weeks, treated with abx, BD and prednisone as outpatient without relief. She presented back to PCP with palpitations, weakness and fatigue, found to be in rapid afib. She denies chest pain, near or true syncope, orthopnea, PND or LE edema. - History Source History Provided By: Patient - Past Medical History Cardio/Vascular: Yes: AFIB (paroxysmal atrial fibrillation. Normal coronaries on 2014 cath. 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) Hepatobiliary: Yes: Cholelithiasis Musculoskeletal: Yes: Chronic low back pain, Osteoarthritis Endocrine: Yes: Osteopenia Additional Medical History: SBO - Past Surgical History Past Surgical History: Yes: Appendectomy (SBO ABDOMINAL WALL HERNIA S/P REPAIR) , Breast Biopsy, Cataract Removal, Colectomy, Colonoscopy, Hysterectomy, Upper Endoscopy (colon adenomas removed, Schatzk ring dilated) - Smoking History Smoking history: Never smoked - Social History Usual Living Arrangement: With Spouse ADL: Independent Home Medications - Allergies Allergies/Adverse Reactions: Allergies Allergy/AdvReac Type Severity Reaction Status Date / Time No Known Allergies Allergy Verified 07/02/17 17:00 - Home Medications Home Medications: Ambulatory Orders Acetaminophen [Tylenol .Regular Strength -] 650 mg PO Q6H PRN #0 tablet Apixaban [Eliquis -] 5 mg PO BID #60 tablet 12/09/15 Furosemide [Lasix -] 20 mg PO DAILY #7 tablet 12/09/15 Gabapentin [Neurontin -] 100 mg PO TID #90 capsule 12/09/15 Sotalol HCl [Betapace -] 80 mg PO BID #60 tablet 12/09/15 Valsartan [Diovan] 40 mg PO DAILY #0 tablet 12/09/15 Active Medications Generic Name Dose Route Start Last Admin Trade Name Freq PRN Reason Stop Dose Admin Acetaminophen 650 mg 07/03/17 03:50 07/05/17 05:19 Tylenol - PO 650 mg Q6H PRN Administration FEVER Albuterol Sulfate 1 amp 07/03/17 03:29 Ventolin 0.083% Nebulizer Soln - NEB Q4H PRN SHORT OF BREATH/WHEEZING Albuterol/Ipratropium 1 amp 07/03/17 08:00 07/05/17 16:00 Duoneb - NEB 1 amp RQID [facility] Administration Apixaban 5 mg 07/03/17 10:00 07/05/17 09:32 Eliquis - PO 5 mg BID [facility] Administration Benzocaine/Menthol 1 each 07/05/17 18:31 Cepacol Lozenge - MM Q2H PRN SORE THROAT Furosemide 20 mg 07/03/17 10:00 07/05/17 09:32 Lasix - PO 20 mg DAILY [facility] Administration Gabapentin 100 mg 07/03/17 06:00 07/05/17 13:42 Neurontin - PO 100 mg TID [facility] Administration Guaifenesin/Codeine Phosphate 5 ml 07/05/17 18:31 Robitussin Ac - PO Q6H PRN COUGH CEFTRIAXONE 1 G/50 ML PREMIX 50 mls @ 100 mls/hr 07/03/17 22:00 07/04/17 22: 43 Ceftriaxone 1 Gm-D5w Bag IVPB 100 mls/hr HS [facility] Administration Insulin Aspart 1 vial 07/03/17 22:00 07/04/17 23:30 Novolog Vial Sliding Scale - SQ 6 units HS [facility] Administration Protocol Insulin Aspart 1 vial 07/03/17 07:00 07/05/17 17:04 Novolog Vial Sliding Scale - SQ 3 unit TIDAC [facility] Administration Protocol Magnesium Oxide 400 mg 07/04/17 22:00 07/05/17 09:31 Mag-Ox - PO 400 mg BID [facility] Administration Methylprednisolone Sodium Succinate 40 mg 07/03/17 03:00 07/05/17 14:28 Solu-Medrol - IVPUSH 40 mg Q6H-IV [facility] Administration Pantoprazole Sodium 20 mg 07/06/17 10:00 Protonix - PO DAILY [facility] Senna 1 tab 07/05/17 22:00 Senna - PO HS [facility] Sotalol HCl 80 mg 07/03/17 10:00 07/05/17 09:32 Betapace - PO 80 mg BID [facility] Administration Valsartan 40 mg 07/03/17 10:00 07/05/17 09:32 Diovan - PO 40 mg DAILY [facility] Administration Family Disease History - Family Disease History Family Disease History: Diabetes: Son, [place]: Sister (breast and uterine cancers), Other: Father (ASHD), Mother (CVA) Vital Signs: Last Vital Signs Temp Pulse Resp BP Pulse Ox 97.7 F 61 20 153/76 94 L 07/05/17 18:02 07/05/17 18:02 07/05/17 18:02 07/05/17 18:02 07/05/17 09:00 Constitutional: Yes: No Distress, Calm Neck: Yes: Supple Respiratory: Yes: Regular, Diminished Gastrointestinal: Yes: Normal Bowel Sounds, Soft, Abdomen, Obese Cardiovascular: Yes: Tachycardia, Pulse Irregula Heart Sounds: Yes: S1, S2 Murmur: Yes: Systolic Murmur, Grade 1 Assessment/Plan 1. PNA underlying COPD 2. Recurrent symptomatic atrial fibrillation compliant on NOAC's 3. CAD non-obstructive CAD angina pectoris, stable 5. LV diastolic dysfunction 6. HTN/HCVD 7. DM 8. Hypercholesterolemia 9. History of PTE 10. History of recurrent small bowel obstruction post diagnostic laparoscopy/ laparotomy and extensive lysis of adhesions with small bowel resection Anemia--chronic disease +/- gi losses Microcytic anemia Iron studies pending.ferritin 40 On eliquis check stoolocuult B12/folate/TSH--nl GI follow up once medically stabilized LT. axillary adnopathy--? mammogram/ u/s as outpatient f/u chest CT--mediastinal adenopathy
[2017-07-05] MEDS: guaiFENesin/CODEINE 5 ML UNIT-DOSE CUPS PO PRN (20:32)
[2017-07-05] MEDS: SENNOSIDES 8.6MG TABLET (FP) PO SCH (23:08)
[2017-07-05] MEDS: CEFTRIAXONE 1 G/50 ML PREMIX 50 ML IVPB SCH (23:09)
--- NOTE | 2017-07-06 00:42 | CONSULT ---
Consult Consult Specialty:: endocrine Referred by:: andrae alexander NP Reason for Consultation:: dm hyperglycemia - History of Present Illness Chief Complaint: cough and weakness History of Present Illness: 82 year old female with a past medical hsitory significant for COPD, Afib presented with SOB and cough for weeks, treated with ABT and prednisone without relief. admitted with respiratory difficulty,copd excarcerbation,chf,requiring iv steroids,has had persistant cough and weakness,high sugars,no prior history of dm,denies nausea or vomiting - Past Medical History Cardio/Vascular: Yes: AFIB (paroxysmal atrial fibrillation. Normal coronaries on 2014 cath. 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) Hepatobiliary: Yes: Cholelithiasis Musculoskeletal: Yes: Chronic low back pain, Osteoarthritis Endocrine: Yes: Osteopenia Additional Medical History: SBO - Past Surgical History Past Surgical History: Yes: Appendectomy (SBO ABDOMINAL WALL HERNIA S/P REPAIR) , Breast Biopsy, Cataract Removal, Colectomy, Colonoscopy, Hysterectomy, Upper Endoscopy (colon adenomas removed, Schatzk ring dilated) - Alcohol/Substance Use Hx Alcohol Use: No History of Substance Use: reports: None - Smoking History Smoking history: Never smoked Have you smoked in the past 12 months: No Aproximately how many cigarettes per day: 0 - Social History Usual Living Arrangement: With Spouse ADL: Independent Occupation: retired [employer] History of Recent Travel: No Home Medications - Allergies Allergies/Adverse Reactions: Allergies Allergy/AdvReac Type Severity Reaction Status Date / Time No Known Allergies Allergy Verified 07/02/17 17:00 - Home Medications Home Medications: Ambulatory Orders Acetaminophen [Tylenol .Regular Strength -] 650 mg PO Q6H PRN #0 tablet Apixaban [Eliquis -] 5 mg PO BID #60 tablet 12/09/15 Furosemide [Lasix -] 20 mg PO DAILY #7 tablet 12/09/15 Gabapentin [Neurontin -] 100 mg PO TID #90 capsule 12/09/15 Sotalol HCl [Betapace -] 80 mg PO BID #60 tablet 12/09/15 Valsartan [Diovan] 40 mg PO DAILY #0 tablet 12/09/15 Family Disease History - Family Disease History Family Disease History: Diabetes: Son, [place]: Sister (breast and uterine cancers), Other: Father (ASHD), Mother (CVA) Review of Systems - Review of Systems Constitutional: reports: Lethargy, Weakness Eyes: reports: Blurred Vision HENT: reports: No Symptoms Neck: reports: No Symptoms Cardiovascular: reports: Shortness of Breath Respiratory: reports: Exercise Intolerance, SOB on Exertion Gastrointestinal: reports: Bloating Genitourinary: reports: No Symptoms Breasts: reports: No Symptoms Reported Musculoskeletal: reports: Muscle Cramps, Muscle Weakness Endocrine: reports: Unexplained Weight Gain Physical Exam Vital Signs: Vital Signs Temperature 97.7 F 07/05/17 18:02 Pulse Rate 61 07/05/17 18:02 Respiratory Rate 20 07/05/17 18:02 Blood Pressure 153/76 07/05/17 18:02 O2 Sat by Pulse Oximetry (%) 94 L 07/05/17 09:00 Constitutional: Yes: Anxious Eyes: Yes: EOM Intact HENT: Yes: Normocephalic Neck: Yes: Trachea Midline Cardiovascular: Yes: Regular Rate and Rhythm Respiratory: Yes: Cough, Poor Air Entry, Rhonchi, Tachypnea Gastrointestinal: Yes: Abdomen, Obese ...Rectal Exam: Yes: Deferred Renal/: Yes: WNL Breast(s): Yes: WNL Musculoskeletal: Yes: WNL Extremities: Yes: WNL Edema: No Neurological: Yes: Alert, Oriented Labs: CBC, BMP 07/05/17 05:45 07/05/17 05:45 Problem List - Problems (1) Diabetes Code(s): E11.9 - TYPE 2 DIABETES MELLITUS WITHOUT COMPLICATIONS Qualifiers: Diabetes mellitus type: type 2 Diabetes mellitus jail insulin use: without jail use (2) COPD (chronic obstructive pulmonary disease) Code(s): J44.9 - CHRONIC OBSTRUCTIVE PULMONARY DISEASE, UNSPECIFIED Qualifiers: COPD type: unspecified COPD Qualified Code(s): J44.9 - Chronic obstructive pulmonary disease, unspecified (3) Palpitations Code(s): R00.2 - PALPITATIONS (4) Paroxysmal atrial fibrillation Code(s): I48.0 - PAROXYSMAL ATRIAL FIBRILLATION (5) ASHD (arteriosclerotic heart disease) Code(s): I25.10 - ATHSCL HEART DISEASE OF [place] CORONARY ARTERY W/O ANG PCTRS Assessment/Plan Current Active Problems COPD (chronic obstructive pulmonary disease) (Acute) Leukocytosis (Acute) Palpitations (Acute) Paroxysmal atrial fibrillation (Acute) Pneumonia (Acute) hyperglycemia daibetes mellitus new onset insulin resistant Abnormal Lab Results 07/05/17 07/05/17 05:45 05:45 WBC 18.5 H Hgb 8.8 L Hct 28.5 L MCV 75.6 L MCH 23.3 L MCHC 30.8 L RDW 16.7 H Neutrophils % 92.8 H Lymphocytes % 5.4 L D Monocytes % 1.7 L BUN 24 H Random Glucose 220 H Calcium 8.4 L AST 9 L Total Protein 5.4 L Albumin 2.3 L Vitamin B12 1040 H Serum Folate 22 H Laboratory Results - last 24 hr 07/05/17 07/05/17 07/05/17 05:16 05:45 05:45 WBC 18.5 H RBC 3.77 Hgb 8.8 L Hct 28.5 L MCV 75.6 L MCH 23.3 L MCHC 30.8 L RDW 16.7 H Plt Count 320 MPV 8.4 Neutrophils % 92.8 H Lymphocytes % 5.4 L D Monocytes % 1.7 L Eosinophils % 0.0 Basophils % 0.1 Sodium 141 Potassium 4.1 Chloride 104 Carbon Dioxide 29 Anion Gap 8 BUN 24 H Creatinine 0.8 Creat Clearance w eGFR > 60 POC Glucometer 232 Random Glucose 220 H Calcium 8.4 L Ferritin 40.582 Total Bilirubin 0.3 AST 9 L ALT 18 Alkaline Phosphatase 70 Total Protein 5.4 L Albumin 2.3 L Vitamin B12 1040 H Serum Folate 22 H TSH 0.46 Free T4 0.90 07/05/17 07/05/17 07/05/17 11:10 16:31 20:53 WBC RBC Hgb Hct MCV MCH MCHC RDW Plt Count MPV Neutrophils % Lymphocytes % Monocytes % Eosinophils % Basophils % Sodium Potassium Chloride Carbon Dioxide Anion Gap BUN Creatinine Creat Clearance w eGFR POC Glucometer 310 223 382 Random Glucose Calcium Ferritin Total Bilirubin AST ALT Alkaline Phosphatase Total Protein Albumin Vitamin B12 Serum Folate TSH Free T4 plan: ck hba1c bgm qid novolog insulin doses levemir 20 units bid if sugar over 150mg/dl Laboratory Tests 07/04/17 07/05/17 07/05/17 22:52 05:16 11:10 POC Glucometer 368 232 310 07/05/17 07/05/17 16:31 20:53 POC Glucometer 223 382
[2017-07-06] MEDS: methylPREDNISolone NA SUCC 40 MG/1 ML VIAL IVPUSH SCH ×2 (04:00→09:00)
[2017-07-06] MEDS: GABAPENTIN 100 MG CAPSULE (FP) PO SCH ×3 (06:06→21:36)
[2017-07-06] MEDS: INSULIN DETEMIR 100 UNITS/ML MDV SQ SCH ×2 (06:06→22:18)
[2017-07-06] MEDS: VALSARTAN 40 MG TABLET (FP) PO SCH ×2 (06:06→09:58)
[2017-07-06] MEDS: ACETAMINOPHEN 325 MG TABLET (FP) PO PRN (06:06)
[2017-07-06] MEDS: INSULIN SLIDING SCALE (NOVOLOG) 1 VIAL SQ SCH ×4 (06:07→21:40)
[2017-07-06] MEDS: ALBUTEROL SO4 2.5/IPRATROPIUM 0.5 INH SOL 3 ML VIAL.NEB. NEB SCH ×4 (07:44→20:41)
[2017-07-06 08:06] LABS: SERUM IRON SATURATION 7 % (15-55); TOTAL IRON BINDING CAPACITY 276 ug/dL (250-450); UIBC 256 ug/dL (118-369)
[2017-07-06] MEDS: FUROSEMIDE 20 MG TABLET (FP) PO SCH (09:00)
--- NOTE | 2017-07-06 09:01 | PN ---
Progress Note, Physician - Current Medication List Current Medications: Active Medications Acetaminophen (Tylenol -) 650 mg PO Q6H PRN PRN Reason: FEVER Last Admin: 07/06/17 06:06 Dose: 650 mg Albuterol Sulfate (Ventolin 0.083% Nebulizer Soln -) 1 amp NEB Q4H PRN PRN Reason: SHORT OF BREATH/WHEEZING Albuterol/Ipratropium (Duoneb -) 1 amp NEB RQID [facility] Last Admin: 07/05/17 20:54 Dose: 1 amp Apixaban (Eliquis -) 5 mg PO BID [facility] Last Admin: 07/05/17 23:08 Dose: 5 mg Benzocaine/Menthol (Cepacol Lozenge -) 1 each MM Q2H PRN PRN Reason: SORE THROAT Furosemide (Lasix -) 20 mg PO DAILY [facility] Last Admin: 07/05/17 09:32 Dose: 20 mg Gabapentin (Neurontin -) 100 mg PO TID [facility] Last Admin: 07/06/17 06:06 Dose: 100 mg Guaifenesin/Codeine Phosphate (Robitussin Ac -) 5 ml PO Q6H PRN PRN Reason: COUGH Last Admin: 07/05/17 20:32 Dose: 5 ml CEFTRIAXONE 1 G/50 ML PREMIX (Ceftriaxone 1 Gm-D5w Bag) 50 mls @ 100 mls/hr IVPB HS [facility] Last Admin: 07/05/17 23:09 Dose: 100 mls/hr Insulin Aspart (Novolog Vial Sliding Scale -) 1 vial SQ [facility] PRN Reason: Protocol Last Admin: 07/05/17 23:15 Dose: 6 units Insulin Aspart (Novolog Vial Sliding Scale -) 1 vial SQ TIDAC [facility] PRN Reason: Protocol Last Admin: 07/06/17 06:07 Dose: Not Given Insulin Detemir (Levemir Vial) 20 units SQ BID@0700,2200 [facility] Last Admin: 07/06/17 06:06 Dose: 20 units Magnesium Oxide (Mag-Ox -) 400 mg PO BID [facility] Last Admin: 07/05/17 23:08 Dose: 400 mg Methylprednisolone Sodium Succinate (Solu-Medrol -) 40 mg IVPUSH Q6H-IV [facility] Last Admin: 07/06/17 04:00 Dose: 40 mg Pantoprazole Sodium (Protonix -) 20 mg PO DAILY [facility] Senna (Senna -) 1 tab PO HS [facility] Last Admin: 07/05/17 23:08 Dose: 1 tab Sotalol HCl (Betapace -) 80 mg PO BID [facility] Last Admin: 07/05/17 23:07 Dose: 80 mg Valsartan (Diovan -) 40 mg PO DAILY [facility] Last Admin: 07/06/17 06:06 Dose: 40 mg - Objective Vital Signs: Vital Signs Temperature 97.0 F L 07/06/17 06:00 Pulse Rate 61 07/06/17 06:00 Respiratory Rate 20 07/06/17 06:00 Blood Pressure 170/74 07/06/17 06:00 O2 Sat by Pulse Oximetry (%) 95 07/05/17 21:00 Cardiovascular: Yes: S1, S2 Respiratory: Yes: Rales Gastrointestinal: Yes: Normal Bowel Sounds, Soft Labs: CBC, BMP 07/05/17 05:45 07/05/17 05:45 INR, PTT INR 1.72 (0.82-1.09) H 07/02/17 17:25 Assessment/Plan - Problems (1) COPD (chronic obstructive pulmonary disease) Assessment/Plan: -seen by pulmonary -IV steroids-Taper -IV abx -bronchodilators -nasal O2 PRN, on RA at the moment Code(s): J44.9 - CHRONIC OBSTRUCTIVE PULMONARY DISEASE, UNSPECIFIED Qualifiers: COPD type: unspecified COPD Qualified Code(s): J44.9 - Chronic obstructive pulmonary disease, unspecified (2) Paroxysmal atrial fibrillation Assessment/Plan: -seen by cardiology -on AC -tele monitoring Code(s): I48.0 - PAROXYSMAL ATRIAL FIBRILLATION (3) Pneumonia Assessment/Plan: -seen by pulmonary -IV steroids-Taper -IV abx -bronchodilators -nasal O2 PRN, on RA at the moment Code(s): J18.9 - PNEUMONIA, UNSPECIFIED ORGANISM (4) Anemia Assessment/Plan: -2/2 chronic disease -B12,Thyroid profile, folate normal _iron profile pending -stool ob pending -hematology consult -GI consult Code(s): D64.9 - ANEMIA, UNSPECIFIED (5) Hypomagnesemia Code(s): E83.42 - HYPOMAGNESEMIA (6) Leukocytosis -on steroids Code(s): D72.829 - ELEVATED WHITE BLOOD CELL COUNT, UNSPECIFIED (7) Type 2 diabetes mellitus with hyperglycemia -bgm with ss Code(s): E11.65 - TYPE 2 DIABETES MELLITUS WITH HYPERGLYCEMIA
[2017-07-06] MEDS ORDERED: methylPREDNISolone NA SUCC 40 MG/1 ML VIAL IVPUSH SCH ×2 (10:00→22:00)
[2017-07-06] MEDS ORDERED: PANTOPRAZOLE 20 MG TABLET (FP) PO SCH (10:00)
[2017-07-06] MEDS: SOTALOL HCL 80 MG TABLET (FP) PO SCH ×2 (10:02→21:37)
[2017-07-06] MEDS: APIXABAN 5 MG TABLET PO SCH ×2 (10:02→21:37)
[2017-07-06] MEDS: MAGNESIUM OXIDE 400 MG TABLET (FP) PO SCH ×2 (10:02→21:37)
[2017-07-06] MEDS: PANTOPRAZOLE 40 MG TABLET (FP) PO SCH (10:03)
[2017-07-06] MEDS ORDERED: INSULIN (NOVOLOG) ASPART 100 UNITS/ML 10ML VIAL ONE (11:32)
[2017-07-06] MEDS: FUROSEMIDE 40 MG TABLET (FP) PO SCH (12:00)
--- NOTE | 2017-07-06 12:19 | PN ---
Progress Note, Physician Chief Complaint: Events noted Appears comfortable and feels better CXR done this am History of Present Illness: Patient was seen and examined. Awake and alert. Chart was reviewed Denies chest pain or palpitations Less SOB and cough - Current Medication List Current Medications: Active Medications Acetaminophen (Tylenol -) 650 mg PO Q6H PRN PRN Reason: FEVER Last Admin: 07/06/17 06:06 Dose: 650 mg Albuterol Sulfate (Ventolin 0.083% Nebulizer Soln -) 1 amp NEB Q4H PRN PRN Reason: SHORT OF BREATH/WHEEZING Albuterol/Ipratropium (Duoneb -) 1 amp NEB RQID [facility] Last Admin: 07/06/17 07:44 Dose: 1 amp Apixaban (Eliquis -) 5 mg PO BID [facility] Last Admin: 07/06/17 10:02 Dose: 5 mg Benzocaine/Menthol (Cepacol Lozenge -) 1 each MM Q2H PRN PRN Reason: SORE THROAT Furosemide (Lasix -) 40 mg PO DAILY [facility] Last Admin: 07/06/17 12:00 Dose: 20 mg Gabapentin (Neurontin -) 100 mg PO TID [facility] Last Admin: 07/06/17 06:06 Dose: 100 mg Guaifenesin/Codeine Phosphate (Robitussin Ac -) 5 ml PO Q6H PRN PRN Reason: COUGH Last Admin: 07/05/17 20:32 Dose: 5 ml CEFTRIAXONE 1 G/50 ML PREMIX (Ceftriaxone 1 Gm-D5w Bag) 50 mls @ 100 mls/hr IVPB [facility] Last Admin: 07/05/17 23:09 Dose: 100 mls/hr Insulin Aspart (Novolog Vial Sliding Scale -) 1 vial SQ HS [facility] PRN Reason: Protocol Last Admin: 07/05/17 23:15 Dose: 6 units Insulin Aspart (Novolog Vial Sliding Scale -) 1 vial SQ TIDAC [facility] PRN Reason: Protocol Last Admin: 07/06/17 11:35 Dose: 3 unit Insulin Detemir (Levemir Vial) 20 units SQ BID@0700,2200 [facility] Last Admin: 07/06/17 06:06 Dose: 20 units Magnesium Oxide (Mag-Ox -) 400 mg PO BID [facility] Last Admin: 07/06/17 10:02 Dose: 400 mg Methylprednisolone Sodium Succinate (Solu-Medrol -) 40 mg IVPUSH BID [facility] Pantoprazole Sodium (Protonix -) 40 mg PO DAILY [facility] Last Admin: 07/06/17 10:03 Dose: Not Given Senna (Senna -) 1 tab PO HS [facility] Last Admin: 07/05/17 23:08 Dose: 1 tab Sotalol HCl (Betapace -) 80 mg PO BID [facility] Last Admin: 07/06/17 10:02 Dose: 80 mg Valsartan (Diovan -) 40 mg PO DAILY [facility] Last Admin: 07/06/17 09:58 Dose: Not Given Valsartan (Diovan -) 40 mg PO ONCE ONE Stop: 07/06/17 12:31 Last Admin: 07/06/17 12:00 Dose: 40 mg - Objective Vital Signs: Vital Signs Temperature 97.0 F L 07/06/17 06:00 Pulse Rate 61 07/06/17 06:00 Respiratory Rate 20 07/06/17 06:00 Blood Pressure 170/74 07/06/17 06:00 O2 Sat by Pulse Oximetry (%) 95 07/05/17 21:00 Eyes: Yes: PERRL HENT: Yes: Atraumatic Neck: Yes: Supple Cardiovascular: Yes: Regular Rate and Rhythm, S1, S2 Respiratory: Yes: Diminished Gastrointestinal: Yes: Normal Bowel Sounds, Soft. No: Tenderness Edema: No Additional Findings/Remarks: - Review of Systems Constitutional: Denies: Weakness. denies: Chills, Fever Cardiovascular: Denies Chest Pain, Palpitations, (+) Shortness of Breath Respiratory: (+) Cough, denies: Hemoptysis, Orthopnea, PND, (+) SOB, SOB on Exertion Gastrointestinal: denies: Abdominal Pain, Constipation, Diarrhea, Melena, Nausea , Rectal Bleeding, Vomiting Genitourinary: denies: Dysuria, Hematuria Musculoskeletal: denies: Joint Pain Neurological: Denies: Weakness. denies: Dizziness, Headache, Seizure, Syncope Labs: CBC, BMP 07/05/17 05:45 07/05/17 05:45 - ....Imaging Chest X-ray: Report Reviewed (Atelectasis) Problem List - Problems (1) COPD (chronic obstructive pulmonary disease) Code(s): J44.9 - CHRONIC OBSTRUCTIVE PULMONARY DISEASE, UNSPECIFIED Qualifiers: COPD type: unspecified COPD Qualified Code(s): J44.9 - Chronic obstructive pulmonary disease, unspecified (2) Diabetes Code(s): E11.9 - TYPE 2 DIABETES MELLITUS WITHOUT COMPLICATIONS Qualifiers: Diabetes mellitus type: type 2 Diabetes mellitus complication status: without complication Diabetes mellitus medical terminologist insulin use: without alf use Qualified Code(s): E11.9 - Type 2 diabetes mellitus without complications (3) Leukocytosis Code(s): D72.829 - ELEVATED WHITE BLOOD CELL COUNT, UNSPECIFIED (4) Paroxysmal atrial fibrillation Code(s): I48.0 - PAROXYSMAL ATRIAL FIBRILLATION (5) Pneumonia Code(s): J18.9 - PNEUMONIA, UNSPECIFIED ORGANISM (6) IKER (acute kidney injury) Code(s): N17.9 - ACUTE KIDNEY FAILURE, UNSPECIFIED (7) ASHD (arteriosclerotic heart disease) Code(s): I25.10 - ATHSCL HEART DISEASE OF [place] CORONARY ARTERY W/O ANG PCTRS (8) Acute on chronic diastolic (congestive) heart failure Code(s): I50.33 - ACUTE ON CHRONIC DIASTOLIC (CONGESTIVE) HEART FAILURE (9) Anemia Code(s): D64.9 - ANEMIA, UNSPECIFIED Qualifiers: Anemia type: unspecified type Qualified Code(s): D64.9 - Anemia, unspecified (10) CKD (chronic kidney disease) Code(s): N18.9 - CHRONIC KIDNEY DISEASE, UNSPECIFIED (11) HTN (hypertension) Code(s): I10 - ESSENTIAL (PRIMARY) HYPERTENSION Qualifiers: Hypertension type: essential hypertension Qualified Code(s): I10 - Essential (primary) hypertension (12) Hyperlipemia Code(s): E78.5 - HYPERLIPIDEMIA, UNSPECIFIED Qualifiers: Hyperlipidemia type: pure hypercholesterolemia Qualified Code(s): E78.00 - Pure hypercholesterolemia, unspecified; E78.0 - Pure hypercholesterolemia (13) Pulmonary hypertension Code(s): I27.2 - OTHER SECONDARY PULMONARY HYPERTENSION * DO NOT USE * (14) S/P exploratory laparotomy Code(s): Z98.89 - OTHER SPECIFIED POSTPROCEDURAL STATES * DO NOT USE * (15) Small bowel obstruction Code(s): K56.69 - OTHER INTESTINAL OBSTRUCTION * DO NOT USE * Assessment/Plan 1. Pneumonia with underlying COPD 2. Recurrent symptomatic paroxysmal atrial fibrillation in sinus rhythm compliant on NOAC 3. CAD non-obstructive CAD angina pectoris, stable 4. LV diastolic dysfunction 5. HTN/HCVD 6. DM 7. Hypercholesterolemia 8. History of PTE 9. History of recurrent small bowel obstruction post diagnostic laparoscopy/ laparotomy and extensive lysis of adhesions with small bowel resection 10. Anemia PLAN: 1. Continue Sotalol 80 bid, increase Diovan to 80 mg qd and continue Lasix 20 qd as hemodynamics tolerate 2. Continue NOAC (Eliquis 5 bid) with close monitoring of CBC 3. Bronchodilator, IV steroids with GI protection, empiric antibiotics course 4. Review office records Further plans are to follow Francisco Pagan MD
[2017-07-06] MEDS ORDERED: VALSARTAN 40 MG TABLET (FP) PO ONE (12:30)
--- NOTE | 2017-07-06 14:13 | PN ---
Progress Note, Physician History of Present Illness: PULMONARY ALERT,FEELING BETTER,LESS CONGESTED,LESS COUGH - Current Medication List Current Medications: Active Medications Acetaminophen (Tylenol -) 650 mg PO Q6H PRN PRN Reason: FEVER Last Admin: 07/06/17 06:06 Dose: 650 mg Albuterol Sulfate (Ventolin 0.083% Nebulizer Soln -) 1 amp NEB Q4H PRN PRN Reason: SHORT OF BREATH/WHEEZING Albuterol/Ipratropium (Duoneb -) 1 amp NEB RQID [facility] Last Admin: 07/06/17 12:20 Dose: 1 amp Apixaban (Eliquis -) 5 mg PO BID [facility] Last Admin: 07/06/17 10:02 Dose: 5 mg Benzocaine/Menthol (Cepacol Lozenge -) 1 each MM Q2H PRN PRN Reason: SORE THROAT Furosemide (Lasix -) 40 mg PO DAILY [facility] Last Admin: 07/06/17 12:00 Dose: 20 mg Gabapentin (Neurontin -) 100 mg PO TID [facility] Last Admin: 07/06/17 06:06 Dose: 100 mg Guaifenesin/Codeine Phosphate (Robitussin Ac -) 5 ml PO Q6H PRN PRN Reason: COUGH Last Admin: 07/05/17 20:32 Dose: 5 ml CEFTRIAXONE 1 G/50 ML PREMIX (Ceftriaxone 1 Gm-D5w Bag) 50 mls @ 100 mls/hr IVPB [facility] Last Admin: 07/05/17 23:09 Dose: 100 mls/hr Insulin Aspart (Novolog Vial Sliding Scale -) 1 vial SQ [facility] PRN Reason: Protocol Last Admin: 07/05/17 23:15 Dose: 6 units Insulin Aspart (Novolog Vial Sliding Scale -) 1 vial SQ TIDAC [facility] PRN Reason: Protocol Last Admin: 07/06/17 11:35 Dose: 3 unit Insulin Detemir (Levemir Vial) 20 units SQ BID@0700,2200 [facility] Last Admin: 07/06/17 06:06 Dose: 20 units Magnesium Oxide (Mag-Ox -) 400 mg PO BID [facility] Last Admin: 07/06/17 10:02 Dose: 400 mg Methylprednisolone Sodium Succinate (Solu-Medrol -) 40 mg IVPUSH BID [facility] Pantoprazole Sodium (Protonix -) 40 mg PO DAILY [facility] Last Admin: 07/06/17 10:03 Dose: Not Given Senna (Senna -) 1 tab PO HS [facility] Last Admin: 07/05/17 23:08 Dose: 1 tab Sotalol HCl (Betapace -) 80 mg PO BID [facility] Last Admin: 07/06/17 10:02 Dose: 80 mg Valsartan (Diovan -) 40 mg PO DAILY [facility] Last Admin: 07/06/17 09:58 Dose: Not Given - Objective Vital Signs: Vital Signs Temperature 98.3 F 07/06/17 10:00 Pulse Rate 76 07/06/17 10:00 Respiratory Rate 18 07/06/17 10:00 Blood Pressure 154/74 07/06/17 10:00 O2 Sat by Pulse Oximetry (%) 96 07/06/17 09:00 Constitutional: Yes: Well Nourished, Calm Eyes: Yes: WNL HENT: Yes: WNL Cardiovascular: Yes: Pulse Irregular, S1, S2 Respiratory: Yes: Rhonchi (FEW SCATTERED RHONCHI) Gastrointestinal: Yes: Normal Bowel Sounds, Soft Extremities: Yes: WNL Edema: Yes Assessment/Plan Problem List - Problems (1) COPD (chronic obstructive pulmonary disease) Code(s): J44.9 - CHRONIC OBSTRUCTIVE PULMONARY DISEASE, UNSPECIFIED (2) Palpitations Code(s): R00.2 - PALPITATIONS (3) Paroxysmal atrial fibrillation Code(s): I48.0 - PAROXYSMAL ATRIAL FIBRILLATION (4) Pneumonia Code(s): J18.9 - PNEUMONIA, UNSPECIFIED ORGANISM (5) Anemia Code(s): D64.9 - ANEMIA, UNSPECIFIED (6) Electrolyte abnormality Code(s): E87.8 - OTH DISORDERS OF ELECTROLYTE AND FLUID BALANCE, NEC Impression: CAP Rapid atrial fib COPD HTN CKD Chronic anemia DM Plan: IV antibiotics IV steroids bronchodilators O2 as needed glycemic control anticoagulation Dr Hester
--- NOTE | 2017-07-06 15:52 | PN ---
Progress Note (short form) - Note Progress Note: Dr. Singleton covering for Dr. Escobedo Full consult dictated 82F with chronic anemia H/O occult GIB Guaiac + on exam: no overt bleeding or melena Heme eval Iron supplementation Follow-up with Dr. Escobedo as an outpatient to discuss possible repeat capsule endoscopy PPI while on steroids
[2017-07-06] MEDS ORDERED: VALSARTAN 80 MG TABLET (UD) PO SCH (17:00)
--- NOTE | 2017-07-06 18:21 | CONS ---
GASTROENTEROLOGY CONSULTATION DATE OF CONSULTATION: 07/06/2017 REQUESTING PHYSICIAN: Dr. Fany Solis HISTORY OF PRESENT ILLNESS: The patient is an 82-year-old female admitted to [facility] on July 02, 2017, for evaluation of persistent cough and sputum production over 1 month's duration. I have been asked to evaluate for anemia. On admission she was noted to have a hemoglobin of 10.7. On review of the [employer] system, it appears as though she does have a chronic anemia dating back from at least 2011. It became more consistent in 2016, with hemoglobins ranging between 7 to 10. She has had endoscopic evaluations in the past. She had intermittent admissions in November 2015. In October 2015 she underwent laparoscopy with lysis of adhesions and a laparotomy with small bowel resection secondary to recurrent small bowel obstructions. During that time she underwent small bowel series that revealed free flow of contrast into the colon, normal mucosal pattern of the nondilated jejunum and normal terminal ileum. She also underwent CT scan of the abdomen and pelvis in November 2015 with IV and oral contrast that revealed small bowel loops adherent to the lower anterior abdominal wall with stranding of the mesenteric fat. The diarrhea at that time resolved and she describes normal beige-colored bowel movements. She denies any rectal bleeding or melena. She is known to my colleague Dr. Shelia Escobedo. She has a history of chronic occult GI bleeding. EGD in September 2014 revealed laryngopharyngeal reflux. She had multiple polyps removed during her colonoscopy in September 2014 and negative capsule endoscopy with my associate Dr. Chavez. Of note, 12 adenomas were removed during that colonoscopy. She has a history of chronic constipation. However, as above, her bowel movements have been regular of late. More recently she underwent both upper endoscopy and colonoscopy with Dr. Escobedo March 30, 2017. EGD revealed normal esophagus with a small sliding hiatal hernia, 2 sessile polyps in the gastric body and normal-appearing duodenal mucosa. Colonoscopy revealed a 1.2 cm polyp in the proximal transverse colon, a 1 cm polyp in the hepatic flexure, moderate diverticulosis throughout the entire colon and evidence of a prior colorectal surgical anastomosis in the rectosigmoid colon. He advised a repeat colonoscopy in 3 years and the quality of the bowel preparation was described as excellent. Pathology revealed the gastric polyps to be hyperplastic fundic gland polyps and the proximal transverse and hepatic flexure polyps were tubular adenomas. PAST MEDICAL HISTORY: Includes paroxysmal atrial fibrillation, normal coronaries on a 2014 catheterization, mitral valve prolapse, deep vein thrombosis, hypertension, hyperlipidemia, mitral insufficiency, COPD, constipation, diverticulitis, status post hemicolectomy with postoperative complications, GERD, GI bleed, hiatal hernia status post repair, peptic ulcer disease, colon adenomas, diverticulosis, a Schatzki ring, recurrent small bowel obstruction. 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 PAST SURGICAL HISTORY: Includes appendectomy, small bowel obstruction with abdominal wall hernia status post repair, more recent small bowel resection with lysis of adhesions October 16, 2015, secondary to recurrent small bowel obstructions, breast biopsy, cataract removal, partial colectomy, colonoscopy, hysterectomy, upper endoscopy, ventral hernia repair. SOCIAL HISTORY: She lives with her . No history of alcohol, tobacco, intravenous drug abuse or illicit drugs. 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 FAMILY HISTORY: There is no family history of colorectal cancer or other GI malignancies. MEDICATIONS PRIOR TO ADMISSION: Include sotalol, gabapentin, acetaminophen, Lasix, valsartan and Eliquis. REVIEW OF SYSTEMS: She complains of cough, wheezing, sputum production over the last month. She denies any chest pain. She did describe some shortness of breath when she is having her episodes of coughing. She denies any nausea, vomiting, dysphagia or odynophagia. She denies any abdominal pain, diarrhea, rectal bleeding, change in bowel habits, melena or gross rectal bleeding. PHYSICAL EXAM: General: The patient is found lying in her bed. She appeared to be in no apparent distress. Vital Signs: She is afebrile, pulse of 88, blood pressure 139/88. HEENT: Her sclerae are anicteric. Neck: Supple. Heart: Revealed a regular rate and rhythm. She did have a 2/6 systolic murmur heard best at the left sternal border. Lungs: Clear to auscultation bilaterally. Abdomen: The abdomen was nondistended. She had normoactive bowel sounds. She did have multiple surgical scars. No hernia was appreciated. No tenderness was elicited. No hepatosplenomegaly was noted. Extremities: Revealed no lower extremity edema. Rectal: Digital rectal exam with no external lesions and no masses. She had soft beige stool in the rectal vault which is guaiac positive. LABORATORY EVALUATION: Revealed white blood count 18.5, hemoglobin 8.8, hematocrit 28.5, platelets 320. INR 1.72. AST 10, ALT 18, alkaline phosphatase 72. Total bilirubin 0.3 with an albumin of 2.4. Total protein 5.8. Sodium 141, potassium 4.2, chloride 105, bicarbonate 25. BUN 17, creatinine 0.7. Stool specimen from July 06, 2017, was positive for occult blood. RADIOLOGY REPORTS: She had a chest x-ray that revealed some atelectatic infiltrative changes and a large heart with unfolded aorta, prominent left hilum. She also had a CT scan of the chest July 03, 2017, that revealed patchy consolidation within the right lower lobe suspicious for acute pneumonia, right middle lobe atelectasis and chronic lung disease and mild mediastinal lymphadenopathy unchanged from May 2016. IMPRESSION: This is an 82-year-old female with a history of chronic anemia, also with a history of suspected occult, obscure gastrointestinal bleed. She does have a chronic microcytic anemia and her bleeding has been suspected to be from vascular ectasias of her small bowel. She is up-to-date in terms of her gastrointestinal workup and iron indices from this admission reveal a somewhat low serum iron level, however, with normal TIBC with an iron saturation of 7%. There is likely a component of iron-deficiency anemia. However, evaluation for alternate etiologies should be considered with a hematology evaluation. I did explain to the patient that when her acute issues are resolved, she should follow up with Dr. Escobedo in the office to see if capsule endoscopy can be performed, although as noted in HPI, she did have a negative capsule endoscopy approximately 3 years ago. Otherwise I would monitor for signs of active ongoing gastrointestinal bleeding, continue Protonix for now, consider iron supplementation as part of her therapy. Consider continued hematology evaluation. I thank you for this consultative opportunity. KAREN GUTIERREZ DO CD/[id number]
[2017-07-06] MEDS: guaiFENesin/CODEINE 5 ML UNIT-DOSE CUPS PO PRN (20:08)
[2017-07-06] MEDS: SENNOSIDES 8.6MG TABLET (FP) PO SCH (21:37)
[2017-07-06] MEDS: CEFTRIAXONE 1 G/50 ML PREMIX 50 ML IVPB SCH (21:40)
[2017-07-07] MEDS: ACETAMINOPHEN 325 MG TABLET (FP) PO PRN ×3 (01:34→23:19)
[2017-07-07] MEDS: guaiFENesin/CODEINE 5 ML UNIT-DOSE CUPS PO PRN ×3 (01:34→21:16)
[2017-07-07] MEDS: GABAPENTIN 100 MG CAPSULE (FP) PO SCH ×3 (05:59→21:17)
[2017-07-07] MEDS: INSULIN DETEMIR 100 UNITS/ML MDV SQ SCH ×2 (06:12→21:17)
[2017-07-07] MEDS: INSULIN SLIDING SCALE (NOVOLOG) 1 VIAL SQ SCH ×4 (06:13→21:18)
[2017-07-07] MEDS: ALBUTEROL SO4 2.5/IPRATROPIUM 0.5 INH SOL 3 ML VIAL.NEB. NEB SCH ×4 (07:10→20:15)
--- NOTE | 2017-07-07 07:53 | PN ---
Progress Note (short form) - Note Progress Note: Chief Complaint: Events noted, notes reviewed. Denies any chest pain or dyspnea , complaining of persistent cough with no sputum production History of Present Illness: Patient seen and examined on telemetry. Events noted, notes reviewed. Denies any chest pain or dyspnea, complaining of persistent cough with no sputum production HTN noted - Current Medication List Current Medications Acetaminophen (Tylenol -) 650 mg PO Q6H PRN PRN Reason: FEVER Last Admin: 07/07/17 01:34 Dose: 650 mg Albuterol Sulfate (Ventolin 0.083% Nebulizer Soln -) 1 amp NEB Q4H PRN PRN Reason: SHORT OF BREATH/WHEEZING Albuterol/Ipratropium (Duoneb -) 1 amp NEB RQID [facility] Last Admin: 07/06/17 20:41 Dose: 1 amp Apixaban (Eliquis -) 5 mg PO BID [facility] Last Admin: 07/06/17 21:37 Dose: 5 mg Benzocaine/Menthol (Cepacol Lozenge -) 1 each MM Q2H PRN PRN Reason: SORE THROAT Furosemide (Lasix -) 40 mg PO DAILY [facility] Last Admin: 07/06/17 12:00 Dose: 20 mg Gabapentin (Neurontin -) 100 mg PO TID [facility] Last Admin: 07/07/17 05:59 Dose: 100 mg Guaifenesin/Codeine Phosphate (Robitussin Ac -) 5 ml PO Q6H PRN PRN Reason: COUGH Last Admin: 07/07/17 01:34 Dose: 5 ml CEFTRIAXONE 1 G/50 ML PREMIX (Ceftriaxone 1 Gm-D5w Bag) 50 mls @ 100 mls/hr IVPB [facility] Last Admin: 07/06/17 21:40 Dose: 100 mls/hr Insulin Aspart (Novolog Vial Sliding Scale -) 1 vial SQ [facility] PRN Reason: Protocol Last Admin: 07/06/17 21:40 Dose: 3 units Insulin Aspart (Novolog Vial Sliding Scale -) 1 vial SQ TIDAC [facility] PRN Reason: Protocol Last Admin: 07/07/17 06:13 Dose: 2 unit Insulin Detemir (Levemir Vial) 20 units SQ BID@0700,2200 [facility] [place] Last Admin: 07/07/17 06:12 Dose: 20 units Magnesium Oxide (Mag-Ox -) 400 mg PO BID [facility] Last Admin: 07/06/17 21:37 Dose: 400 mg Pantoprazole Sodium (Protonix -) 40 mg PO DAILY [facility] Last Admin: 07/06/17 10:03 Dose: Not Given Prednisone (Deltasone -) 30 mg PO BID [facility] Senna (Senna -) 1 tab PO HS [facility] Last Admin: 07/06/17 21:37 Dose: 1 tab Sotalol HCl (Betapace -) 80 mg PO BID [facility] [place] Last Admin: 07/06/17 21:37 Dose: 80 mg Valsartan (Diovan -) 160 mg PO DAILY [facility] Review of Systems Cardiovascular: As noted above Respiratory: reports: Cough without any Sputum Production Gastrointestinal: denies: Nausea, Vomiting, Diarrhea, Constipation or Abdominal Discomfort Musculoskeletal: No Symptoms Reported Endocrine: No Symptoms Reported - Objective Vital Signs: Last Vital Signs Temp Pulse Resp BP Pulse Ox 98.3 F 66 20 179/76 97 07/07/17 06:00 07/07/17 06:00 07/07/17 06:00 07/07/17 06:00 07/06/17 21:00 Intake & Output 07/04/17 07/05/17 07/06/17 07/07/17 23:59 23:59 23:59 23:59 Intake Total 520 750 820 180 Balance 520 750 820 180 Neck: Supple Negative JVD No Bruit Respiratory: Clear to A&P Bilaterally Cardiovascular: S1 S2 Regular Rate and Rhythm Gastrointestinal: Soft Benign Normal Bowel Sounds Ext: No Edema Labs: CBC, BMP 07/05/17 05:45 07/05/17 05:45 Assessment/Plan ASSESSMENT: 1. Pneumonia/bronchitis with underlying COPD, resolving 2. Recurrent symptomatic paroxysmal atrial fibrillation currently in sinus rhythm [id number] score of 6, compliant on NOAC's/Eliquis 3. CAD non-obstructive CAD angina pectoris, stable 4. LV diastolic dysfunction with chronic class I NYHA classification LV failure , compensated/euvolemic 5. HTN, not at goal 6. DM 7. Hypercholesterolemia 8. COPD 9. History of PTE 10. History of recurrent small bowel obstruction post diagnostic laparoscopy/ laparotomy and extensive lysis of adhesions with small bowel resection 11. Anemia PLAN: 1. Continue Diovan and titrate dosage 2. Continue Betapace 3. Continue Lasix 4. Continue NOAC's/Eliquis with close monitoring of CBC maintaining Hg equal or > 8.0 5. Antibiotics, steroids and bronchodilators as per the primary team Bryanna Otoole M.D.
[2017-07-07] MEDS ORDERED: VALSARTAN 160 MG TABLET (UD) PO SCH (08:24)
--- NOTE | 2017-07-07 09:02 | PN ---
Progress Note, Physician - Current Medication List Current Medications: Active Medications Acetaminophen (Tylenol -) 650 mg PO Q6H PRN PRN Reason: FEVER Last Admin: 07/07/17 01:34 Dose: 650 mg Albuterol Sulfate (Ventolin 0.083% Nebulizer Soln -) 1 amp NEB Q4H PRN PRN Reason: SHORT OF BREATH/WHEEZING Albuterol/Ipratropium (Duoneb -) 1 amp NEB RQID [facility] Last Admin: 07/06/17 20:41 Dose: 1 amp Apixaban (Eliquis -) 5 mg PO BID [facility] Last Admin: 07/06/17 21:37 Dose: 5 mg Benzocaine/Menthol (Cepacol Lozenge -) 1 each MM Q2H PRN PRN Reason: SORE THROAT Furosemide (Lasix -) 40 mg PO DAILY [facility] Last Admin: 07/06/17 12:00 Dose: 20 mg Gabapentin (Neurontin -) 100 mg PO TID [facility] Last Admin: 07/07/17 05:59 Dose: 100 mg Guaifenesin/Codeine Phosphate (Robitussin Ac -) 5 ml PO Q6H PRN PRN Reason: COUGH Last Admin: 07/07/17 01:34 Dose: 5 ml CEFTRIAXONE 1 G/50 ML PREMIX (Ceftriaxone 1 Gm-D5w Bag) 50 mls @ 100 mls/hr IVPB [facility] Last Admin: 07/06/17 21:40 Dose: 100 mls/hr Insulin Aspart (Novolog Vial Sliding Scale -) 1 vial SQ [facility] PRN Reason: Protocol Last Admin: 07/06/17 21:40 Dose: 3 units Insulin Aspart (Novolog Vial Sliding Scale -) 1 vial SQ TIDAC [facility] PRN Reason: Protocol Last Admin: 07/07/17 06:13 Dose: 2 unit Insulin Detemir (Levemir Vial) 20 units SQ BID@0700,2200 [facility] Last Admin: 07/07/17 06:12 Dose: 20 units Magnesium Oxide (Mag-Ox -) 400 mg PO BID [facility] Last Admin: 07/06/17 21:37 Dose: 400 mg Pantoprazole Sodium (Protonix -) 40 mg PO DAILY [facility] Last Admin: 07/06/17 10:03 Dose: Not Given Prednisone (Deltasone -) 30 mg PO BID [facility] Senna (Senna -) 1 tab PO [facility] Last Admin: 07/06/17 21:37 Dose: 1 tab Sotalol HCl (Betapace -) 80 mg PO BID [facility] Last Admin: 07/06/17 21:37 Dose: 80 mg Valsartan (Diovan -) 160 mg PO DAILY [facility] - Objective Vital Signs: Vital Signs Temperature 98.3 F 07/07/17 06:00 Pulse Rate 66 07/07/17 06:00 Respiratory Rate 20 07/07/17 06:00 Blood Pressure 179/76 07/07/17 06:00 O2 Sat by Pulse Oximetry (%) 97 07/06/17 21:00 Cardiovascular: Yes: S1, S2 Respiratory: Yes: Rales (chronic basilar) Gastrointestinal: Yes: Normal Bowel Sounds, Soft Labs: CBC, BMP 07/05/17 05:45 07/05/17 05:45 INR, PTT INR 1.72 (0.82-1.09) H 07/02/17 17:25 Assessment/Plan - Problems (1) COPD (chronic obstructive pulmonary disease) Assessment/Plan: -seen by pulmonary -IV steroids-Taper--po -IV abx -bronchodilators -nasal O2 PRN, on RA at the moment Code(s): J44.9 - CHRONIC OBSTRUCTIVE PULMONARY DISEASE, UNSPECIFIED Qualifiers: COPD type: unspecified COPD Qualified Code(s): J44.9 - Chronic obstructive pulmonary disease, unspecified (2) Paroxysmal atrial fibrillation Assessment/Plan: -seen by cardiology -on AC -tele monitoring Code(s): I48.0 - PAROXYSMAL ATRIAL FIBRILLATION (3) Pneumonia Assessment/Plan: -seen by pulmonary -IV steroids-Taper--po -IV abx -bronchodilators -nasal O2 PRN, on RA at the moment Code(s): J18.9 - PNEUMONIA, UNSPECIFIED ORGANISM (4) Anemia Assessment/Plan: -2/2 chronic disease -B12,Thyroid profile, folate normal _iron profile pending -stool ob pending -hematology consult -GI consult noted Code(s): D64.9 - ANEMIA, UNSPECIFIED (5) CHF-diastolic--acute on chronic -lasix (6) Leukocytosis -on steroids Code(s): D72.829 - ELEVATED WHITE BLOOD CELL COUNT, UNSPECIFIED (7) Type 2 diabetes mellitus with hyperglycemia -bgm with ss Code(s): E11.65 - TYPE 2 DIABETES MELLITUS WITH HYPERGLYCEMIA
[2017-07-07] MEDS: FUROSEMIDE 40 MG TABLET (FP) PO SCH (09:13)
[2017-07-07] MEDS: MAGNESIUM OXIDE 400 MG TABLET (FP) PO SCH ×2 (09:13→21:17)
[2017-07-07] MEDS: APIXABAN 5 MG TABLET PO SCH ×2 (09:13→21:17)
[2017-07-07] MEDS: PANTOPRAZOLE 40 MG TABLET (FP) PO SCH (09:13)
[2017-07-07] MEDS: SOTALOL HCL 80 MG TABLET (FP) PO SCH ×2 (09:13→21:16)
[2017-07-07] MEDS: predniSONE 10 MG TABLET (UD) PO SCH ×2 (10:54→21:16)
--- NOTE | 2017-07-07 11:31 | PN ---
Progress Note, Physician History of Present Illness: pulmonary alert,feeling better,-sob,less cough - Current Medication List Current Medications: Active Medications Acetaminophen (Tylenol -) 650 mg PO Q6H PRN PRN Reason: FEVER Last Admin: 07/07/17 01:34 Dose: 650 mg Albuterol Sulfate (Ventolin 0.083% Nebulizer Soln -) 1 amp NEB Q4H PRN PRN Reason: SHORT OF BREATH/WHEEZING Albuterol/Ipratropium (Duoneb -) 1 amp NEB RQID [facility] Last Admin: 07/07/17 07:10 Dose: 1 amp Apixaban (Eliquis -) 5 mg PO BID [facility] Last Admin: 07/07/17 09:13 Dose: 5 mg Benzocaine/Menthol (Cepacol Lozenge -) 1 each MM Q2H PRN PRN Reason: SORE THROAT Furosemide (Lasix -) 40 mg PO DAILY [facility] Last Admin: 07/07/17 09:13 Dose: 40 mg Gabapentin (Neurontin -) 100 mg PO TID [facility] Last Admin: 07/07/17 05:59 Dose: 100 mg Guaifenesin/Codeine Phosphate (Robitussin Ac -) 5 ml PO Q6H PRN PRN Reason: COUGH Last Admin: 07/07/17 01:34 Dose: 5 ml CEFTRIAXONE 1 G/50 ML PREMIX (Ceftriaxone 1 Gm-D5w Bag) 50 mls @ 100 mls/hr IVPB [facility] Last Admin: 07/06/17 21:40 Dose: 100 mls/hr Insulin Aspart (Novolog Vial Sliding Scale -) 1 vial SQ [facility] PRN Reason: Protocol Last Admin: 07/06/17 21:40 Dose: 3 units Insulin Aspart (Novolog Vial Sliding Scale -) 1 vial SQ TIDAC [facility] PRN Reason: Protocol Last Admin: 07/07/17 06:13 Dose: 2 unit Insulin Detemir (Levemir Vial) 20 units SQ BID@0700,2200 [facility] Last Admin: 07/07/17 06:12 Dose: 20 units Magnesium Oxide (Mag-Ox -) 400 mg PO BID [facility] Last Admin: 07/07/17 09:13 Dose: 400 mg Pantoprazole Sodium (Protonix -) 40 mg PO DAILY [facility] Last Admin: 07/07/17 09:13 Dose: 40 mg Prednisone (Deltasone -) 30 mg PO BID [facility] Last Admin: 07/07/17 10:54 Dose: 30 mg Senna (Senna -) 1 tab PO HS [facility] Last Admin: 07/06/17 21:37 Dose: 1 tab Sotalol HCl (Betapace -) 80 mg PO BID [facility] Last Admin: 07/07/17 09:13 Dose: 80 mg Valsartan (Diovan -) 160 mg PO DAILY [facility] Last Admin: 07/07/17 10:54 Dose: 160 mg - Objective Vital Signs: Vital Signs Temperature 98.3 F 07/07/17 06:00 Pulse Rate 66 07/07/17 06:00 Respiratory Rate 20 07/07/17 06:00 Blood Pressure 179/76 07/07/17 06:00 O2 Sat by Pulse Oximetry (%) 97 07/06/17 21:00 Constitutional: Yes: Well Nourished, Calm Eyes: Yes: WNL HENT: Yes: WNL Neck: Yes: WNL Cardiovascular: Yes: Pulse Irregular, S1, S2 Respiratory: Yes: Rhonchi (few rhonchi) Gastrointestinal: Yes: Normal Bowel Sounds, Soft Extremities: Yes: WNL Edema: Yes Labs: CBC, BMP Assessment/Plan Problem List - Problems (1) COPD (chronic obstructive pulmonary disease) Code(s): J44.9 - CHRONIC OBSTRUCTIVE PULMONARY DISEASE, UNSPECIFIED (2) Palpitations Code(s): R00.2 - PALPITATIONS (3) Paroxysmal atrial fibrillation Code(s): I48.0 - PAROXYSMAL ATRIAL FIBRILLATION (4) Pneumonia Code(s): J18.9 - PNEUMONIA, UNSPECIFIED ORGANISM (5) Anemia Code(s): D64.9 - ANEMIA, UNSPECIFIED (6) Electrolyte abnormality Code(s): E87.8 - OTH DISORDERS OF ELECTROLYTE AND FLUID BALANCE, NEC Impression: CAP Rapid atrial fib COPD HTN CKD Chronic anemia DM Plan: antibiotics steroid taper bronchodilators O2 as needed glycemic control anticoagulation Dr Hester
--- NOTE | 2017-07-07 12:17 | PN ---
Progress Note (short form) - Note Progress Note: much less congested no fevers feels well still some cough Vital Signs Period Temp Pulse Resp BP Sys/Gonzales Pulse Ox Last 24 Hr 97.9 F-98.4 F 55-88 18-20 139-179/70-88 97 cor-rrr lungs decreased bs at ases no wheezing abd soft,nt ext no edema CBC, BMP 07/05/17 05:45 07/05/17 05:45 Microbiology 07/02/17 21:50 Blood - Peripheral Venous Blood Culture - Preliminary NO GROWTH OBTAINED AFTER 96 HOURS, INCUBATION TO CONTINUE FOR 1 DAYS. 07/02/17 21:50 Blood - Peripheral Venous Blood Culture - Preliminary NO GROWTH OBTAINED AFTER 96 HOURS, INCUBATION TO CONTINUE FOR 1 DAYS. 07/03/17 17:33 Urine For Antigen Detection Legionella Antigen - Final 07/03/17 17:33 Urine For Antigen Detection Streptococcus pneumoniae Antigen (M - Final 07/03/17 02:30 Nasopharyngeal Swab Influenza Types A,B Antigen (KADE) - Final 07/03/17 02:30 Nasopharyngeal Swab - Final Microbiology Laboratory Tests 07/06/17 07/06/17 06:50 06:50 ESR 27 C-Reactive Protein 0.9 H a/p RLL pneumonia- rocephin/zithromax to continue suspect leukocytosis is secondary to steroids day #6/7 antiiboitcs, plan for d/c in am , improved history of copd please call back if needed Problem List - Problems (1) Pneumonia Code(s): J18.9 - PNEUMONIA, UNSPECIFIED ORGANISM (2) COPD (chronic obstructive pulmonary disease) Code(s): J44.9 - CHRONIC OBSTRUCTIVE PULMONARY DISEASE, UNSPECIFIED Qualifiers: COPD type: unspecified COPD Qualified Code(s): J44.9 - Chronic obstructive pulmonary disease, unspecified
[2017-07-07] MEDS ORDERED: PT OWN MED DRAWER 7, Y5N ONE (12:19)
--- NOTE | 2017-07-07 18:54 | PN ---
GI Progress Note Subjective: GI NOte: Hb has been stable. After her EGD and colonoscopy in 03/31 I advised Justina to arrange parenteral iron infusions with Dr Jackson to keep up with chronic GI losses from suspected small bowel vascular ectasias. She was unable to do so as she developed a prolonged upper respiratory illness followed by sinusitis. 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 Justina will arrange parenteral iron infusion with Dr Jackson after discharge. No GI objections to discharge
[2017-07-07] MEDS ORDERED: INSULIN (NOVOLOG) ASPART 100 UNITS/ML 10ML VIAL ONE (21:15)
[2017-07-07] MEDS: SENNOSIDES 8.6MG TABLET (FP) PO SCH (21:17)
[2017-07-07] MEDS: CEFTRIAXONE 1 G/50 ML PREMIX 50 ML IVPB SCH (21:17)
[2017-07-08] MEDS: ACETAMINOPHEN 325 MG TABLET (FP) PO PRN (06:01)
[2017-07-08] MEDS: GABAPENTIN 100 MG CAPSULE (FP) PO SCH (06:02)
[2017-07-08] MEDS: INSULIN SLIDING SCALE (NOVOLOG) 1 VIAL SQ SCH ×2 (06:03→11:44)
[2017-07-08] MEDS: INSULIN DETEMIR 100 UNITS/ML MDV SQ SCH (06:03)
[2017-07-08] MEDS: ALBUTEROL SO4 2.5/IPRATROPIUM 0.5 INH SOL 3 ML VIAL.NEB. NEB SCH ×2 (07:50→11:15)
--- NOTE | 2017-07-08 08:18 | DS ---
Physical Examination Vital Signs: Vital Signs Temperature 98.0 F 07/08/17 05:50 Pulse Rate 58 L 07/08/17 05:50 Respiratory Rate 18 07/08/17 05:50 Blood Pressure 188/86 07/08/17 05:50 O2 Sat by Pulse Oximetry (%) 95 07/07/17 21:00 Cardiovascular: Yes: S1, S2 Respiratory: Yes: Regular, CTA Bilaterally Gastrointestinal: Yes: Normal Bowel Sounds, Soft. No: Tenderness Labs: CBC, BMP 07/05/17 05:45 07/05/17 05:45 Discharge Summary Reason For Visit: COPD/ATRIL FIBRILATION Current Active Problems COPD (chronic obstructive pulmonary disease) (Acute) Diabetes (Acute) Leukocytosis (Acute) Palpitations (Acute) Paroxysmal atrial fibrillation (Acute) Pneumonia (Acute) Hospital Course: This is an 82 year old female with a past medical hsitory significant for COPD, Afib presented with SOB and cough for weeks, treated with ABT and prednisone without relief. Today she presented back to PCP with palpitations as well. PCP referred pt to ED. ER course was notable for: (1) WBC 14.0 (2) Gluc 210 (3) CXR ? RLL PNA, LLL pleural effusion Recent Travel: pt denies PAST MEDICAL HISTORY: Afib, ASHD, MVRegurg, HTN, HLD, anemia, COPD, colon adneomas, diverticulosis, hiatal hernia, SBO, stress incontinence s/p botox PAST SURGICAL HISTORY: laparotomay, lysis of adhesions 06/2011 appendectomy 1969 R ankle ORIF 90s cardiac cath without intervention needed Social History: Smoking: pt denies Alcohol: pt denies Drugs: pt denies Family History: mother in her 70s, CVA father in his 70s, miner helper's lung sister in her 60s, ovarian CA sister in her 60s, heart trouble brother in his 60s prostate CA sister in her 80s, BrCA survivor - Problems (1) COPD (chronic obstructive pulmonary disease) Assessment/Plan: -seen by pulmonary -IV steroids-Taper--po -IV abx -bronchodilators -nasal O2 PRN, on RA at the moment Code(s): J44.9 - CHRONIC OBSTRUCTIVE PULMONARY DISEASE, UNSPECIFIED Qualifiers: COPD type: unspecified COPD Qualified Code(s): J44.9 - Chronic obstructive pulmonary disease, unspecified (2) Paroxysmal atrial fibrillation Assessment/Plan: -seen by cardiology -on AC -tele monitoring Code(s): I48.0 - PAROXYSMAL ATRIAL FIBRILLATION (3) Pneumonia Assessment/Plan: -seen by pulmonary -IV steroids-Taper--po -IV abx -bronchodilators -nasal O2 PRN, on RA at the moment Code(s): J18.9 - PNEUMONIA, UNSPECIFIED ORGANISM (4) Anemia Assessment/Plan: -2/2 chronic disease -B12,Thyroid profile, folate normal _iron profile pending -stool ob pending -hematology consult -GI consult noted Code(s): D64.9 - ANEMIA, UNSPECIFIED (5) CHF-diastolic--acute on chronic -lasix (6) Leukocytosis -on steroids Code(s): D72.829 - ELEVATED WHITE BLOOD CELL COUNT, UNSPECIFIED (7) Type 2 diabetes mellitus with hyperglycemia -bgm with ss Code(s): E11.65 - TYPE 2 DIABETES MELLITUS WITH HYPERGLYCEMIA Condition: Improved - Instructions Referrals: Fany Solis MD [Primary Care Provider] - 1 Week Shelia Escobedo MD [Staff Physician] - Disposition: HOME - Home Medications Comprehensive Discharge Medication List: Ambulatory Orders Acetaminophen [Tylenol .Regular Strength -] 650 mg PO Q6H PRN #0 tablet Apixaban [Eliquis -] 5 mg PO BID #60 tablet 12/09/15 Gabapentin [Neurontin -] 100 mg PO TID #90 capsule 12/09/15 Sotalol HCl [Betapace -] 80 mg PO BID #60 tablet 12/09/15 Albuterol 2.5/Ipratropium 0.5 [Duoneb -] 1 amp NEB RQID amp 07/08/17 Furosemide [Lasix -] 40 mg PO DAILY tablet 07/08/17 Insulin Degludec [Tresiba Flextouch U-100] 10 unit SQ BID #3 insuln.pen Pantoprazole Sodium [Protonix -] 40 mg PO DAILY #30 tablet.ec 07/08/17 Prednisone [Deltasone -] 30 mg PO BID #100 tablet 07/08/17 Sennosides [Senna -] 1 tab PO HS tablet 07/08/17 Valsartan [Diovan] 160 mg PO BID #60 tablet 07/08/17
[2017-07-08 08:49] LABS: BASO % 0.1 % (0-2.0); HEMATOCRIT 34.4 % (32.4-45.2); HEMOGLOBIN 10.6 GM/dL (10.7-15.3); LYMPH % 15.6 % (8-40); MCH 23.2 pg (25.7-33.7); MEAN PLT VOLUME 7.8 fl (7.5-11.1); MONO % 5.1 % (3.8-10.2); NEUT % 79.2 % (42.8-82.8); PLATELET COUNT 326 K/MM3 (134-434); RBC 4.58 M/mm3 (3.60-5.2); RDW 16.5 % (11.6-15.6); WHITE BLOOD COUNT 11.7 K/mm3 (4.0-10.0)
[2017-07-08 09:16] LABS: ALBUMIN 2.8 g/dl (3.4-5.0); ANION GAP 9 (8-16); BLOOD UREA NITROGEN 26 mg/dL (7-18); CALCIUM 8.8 mg/dL (8.5-10.1); CHLORIDE 96 mmol/L (98-107); CO2 32 mmol/L (21-32); GLUCOSE,RANDOM 192 mg/dL (74-106); MAGNESIUM 1.9 mg/dL (1.8-2.4); POTASSIUM 4.3 mmol/L (3.5-5.1); SODIUM 137 mmol/L (136-145)
[2017-07-08 09:23] LABS: ALK PHOS 78 U/L (45-117); BILIRUBIN,TOTAL 0.4 mg/dL (0.2-1.0); CREATININE 0.8 mg/dL (0.55-1.02); SGOT/AST 15 U/L (15-37); SGPT/ALT 28 U/L (12-78); TOT PROT 6.5 g/dl (6.4-8.2)
[2017-07-08] MEDS: predniSONE 10 MG TABLET (UD) PO SCH (09:38)
[2017-07-08] MEDS: SOTALOL HCL 80 MG TABLET (FP) PO SCH (09:38)
[2017-07-08] MEDS: MAGNESIUM OXIDE 400 MG TABLET (FP) PO SCH (09:38)
[2017-07-08] MEDS: PANTOPRAZOLE 40 MG TABLET (FP) PO SCH (09:39)
[2017-07-08] MEDS: APIXABAN 5 MG TABLET PO SCH (09:39)
[2017-07-08] MEDS: FUROSEMIDE 40 MG TABLET (FP) PO SCH (09:39)
[2017-07-08] MEDS ORDERED: VALSARTAN 160 MG TABLET (UD) PO SCH (10:00)
--- NOTE | 2017-07-08 11:59 | PN ---
Progress Note, Physician Chief Complaint: Feels much improved - Current Medication List Current Medications: Active Medications Acetaminophen (Tylenol -) 650 mg PO Q6H PRN PRN Reason: FEVER Last Admin: 07/08/17 06:01 Dose: 650 mg Albuterol Sulfate (Ventolin 0.083% Nebulizer Soln -) 1 amp NEB Q4H PRN PRN Reason: SHORT OF BREATH/WHEEZING Albuterol/Ipratropium (Duoneb -) 1 amp NEB RQID [facility] Last Admin: 07/08/17 11:15 Dose: 1 amp Apixaban (Eliquis -) 5 mg PO BID [facility] Last Admin: 07/08/17 09:39 Dose: 5 mg Benzocaine/Menthol (Cepacol Lozenge -) 1 each MM Q2H PRN PRN Reason: SORE THROAT Furosemide (Lasix -) 40 mg PO DAILY [facility] Last Admin: 07/08/17 09:39 Dose: 40 mg Gabapentin (Neurontin -) 100 mg PO TID [facility] Last Admin: 07/08/17 06:02 Dose: 100 mg Guaifenesin/Codeine Phosphate (Robitussin Ac -) 5 ml PO Q6H PRN PRN Reason: COUGH Last Admin: 07/07/17 21:16 Dose: 5 ml CEFTRIAXONE 1 G/50 ML PREMIX (Ceftriaxone 1 Gm-D5w Bag) 50 mls @ 100 mls/hr IVPB [facility] Last Admin: 07/07/17 21:17 Dose: 100 mls/hr Insulin Aspart (Novolog Vial Sliding Scale -) 1 vial SQ [facility] PRN Reason: Protocol Last Admin: 07/07/17 21:18 Dose: 2 units Insulin Aspart (Novolog Vial Sliding Scale -) 1 vial SQ TIDAC [facility] PRN Reason: Protocol Last Admin: 07/08/17 11:44 Dose: 3 unit Insulin Detemir (Levemir Vial) 20 units SQ BID@0700,2200 [facility] Last Admin: 07/08/17 06:03 Dose: Not Given Magnesium Oxide (Mag-Ox -) 400 mg PO BID [facility] Last Admin: 07/08/17 09:38 Dose: 400 mg Pantoprazole Sodium (Protonix -) 40 mg PO DAILY [facility] Last Admin: 07/08/17 09:39 Dose: 40 mg Prednisone (Deltasone -) 30 mg PO BID [facility] Last Admin: 07/08/17 09:38 Dose: 30 mg Senna (Senna -) 1 tab PO HS [facility] Last Admin: 07/07/17 21:17 Dose: 1 tab Sotalol HCl (Betapace -) 80 mg PO BID [facility] Last Admin: 07/08/17 09:38 Dose: 80 mg Valsartan (Diovan -) 160 mg PO BID [facility] Last Admin: 07/08/17 09:38 Dose: 160 mg - Objective Vital Signs: Vital Signs Temperature 98.0 F 07/08/17 05:50 Pulse Rate 58 L 07/08/17 05:50 Respiratory Rate 18 07/08/17 05:50 Blood Pressure 188/86 07/08/17 05:50 O2 Sat by Pulse Oximetry (%) 95 07/07/17 21:00 Constitutional: Yes: Calm Eyes: Yes: EOM Intact HENT: Yes: Normocephalic Neck: Yes: Trachea Midline Cardiovascular: Yes: Pulse Irregular, S1, S2 Respiratory: Yes: CTA Bilaterally Gastrointestinal: Yes: Normal Bowel Sounds Edema: LLE: 1+, RLE: 1+ Labs: CBC, BMP 07/08/17 08:20 07/08/17 08:20 INR, PTT INR 1.72 (0.82-1.09) H 07/02/17 17:25 rest reviewed - ....Imaging Chest X-ray: Report Reviewed, Image Reviewed Problem List - Problems (1) Anemia Code(s): D64.9 - ANEMIA, UNSPECIFIED (2) COPD (chronic obstructive pulmonary disease) Code(s): J44.9 - CHRONIC OBSTRUCTIVE PULMONARY DISEASE, UNSPECIFIED Qualifiers: COPD type: unspecified COPD Qualified Code(s): J44.9 - Chronic obstructive pulmonary disease, unspecified (3) Diabetes Code(s): E11.9 - TYPE 2 DIABETES MELLITUS WITHOUT COMPLICATIONS Qualifiers: Diabetes mellitus type: type 2 Diabetes mellitus complication status: without complication Diabetes mellitus superintendent terminal insulin use: without superintendent terminal use Qualified Code(s): E11.9 - Type 2 diabetes mellitus without complications (4) Paroxysmal atrial fibrillation Code(s): I48.0 - PAROXYSMAL ATRIAL FIBRILLATION (5) ASHD (arteriosclerotic heart disease) Code(s): I25.10 - ATHSCL HEART DISEASE OF [place] CORONARY ARTERY W/O ANG PCTRS (6) Rectal bleed Code(s): K62.5 - HEMORRHAGE OF ANUS AND RECTUM Assessment/Plan CAP resolved Rapid atrial fib controlled COPD HTN CKD Chronic anemia DM Plan: steroid taper as outpatient bronchodilators O2 as needed glycemic control anticoagulation Henry CASTREJON MD
--- NOTE | 2017-07-08 12:43 | PN ---
Progress Note, Physician History of Present Illness: Continued nonproductive cough amenable to codeine, remains in sinus rhythm. - Current Medication List Current Medications: Active Medications Acetaminophen (Tylenol -) 650 mg PO Q6H PRN PRN Reason: FEVER Last Admin: 07/08/17 06:01 Dose: 650 mg Albuterol Sulfate (Ventolin 0.083% Nebulizer Soln -) 1 amp NEB Q4H PRN PRN Reason: SHORT OF BREATH/WHEEZING Albuterol/Ipratropium (Duoneb -) 1 amp NEB RQID [facility] Last Admin: 07/08/17 11:15 Dose: 1 amp Apixaban (Eliquis -) 5 mg PO BID [facility] Last Admin: 07/08/17 09:39 Dose: 5 mg Benzocaine/Menthol (Cepacol Lozenge -) 1 each MM Q2H PRN PRN Reason: SORE THROAT Furosemide (Lasix -) 40 mg PO DAILY [facility] Last Admin: 07/08/17 09:39 Dose: 40 mg Gabapentin (Neurontin -) 100 mg PO TID [facility] Last Admin: 07/08/17 06:02 Dose: 100 mg Guaifenesin/Codeine Phosphate (Robitussin Ac -) 5 ml PO Q6H PRN PRN Reason: COUGH Last Admin: 07/07/17 21:16 Dose: 5 ml CEFTRIAXONE 1 G/50 ML PREMIX (Ceftriaxone 1 Gm-D5w Bag) 50 mls @ 100 mls/hr IVPB [facility] Last Admin: 07/07/17 21:17 Dose: 100 mls/hr Insulin Aspart (Novolog Vial Sliding Scale -) 1 vial SQ [facility] PRN Reason: Protocol Last Admin: 07/07/17 21:18 Dose: 2 units Insulin Aspart (Novolog Vial Sliding Scale -) 1 vial SQ TIDAC [facility] PRN Reason: Protocol Last Admin: 07/08/17 11:44 Dose: 3 unit Insulin Detemir (Levemir Vial) 20 units SQ BID@0700,2200 [facility] Last Admin: 07/08/17 06:03 Dose: Not Given Magnesium Oxide (Mag-Ox -) 400 mg PO BID [facility] Last Admin: 07/08/17 09:38 Dose: 400 mg Pantoprazole Sodium (Protonix -) 40 mg PO DAILY [facility] Last Admin: 07/08/17 09:39 Dose: 40 mg Prednisone (Deltasone -) 30 mg PO BID [facility] Last Admin: 07/08/17 09:38 Dose: 30 mg Senna (Senna -) 1 tab PO HS [facility] Last Admin: 07/07/17 21:17 Dose: 1 tab Sotalol HCl (Betapace -) 80 mg PO BID [facility] Last Admin: 07/08/17 09:38 Dose: 80 mg Valsartan (Diovan -) 160 mg PO BID [facility] Last Admin: 07/08/17 09:38 Dose: 160 mg - Objective Vital Signs: Vital Signs Temperature 98.0 F 07/08/17 05:50 Pulse Rate 58 L 07/08/17 05:50 Respiratory Rate 18 07/08/17 05:50 Blood Pressure 188/86 07/08/17 05:50 O2 Sat by Pulse Oximetry (%) 95 07/07/17 21:00 Labs: CBC, BMP 07/08/17 08:20 07/08/17 08:20 INR, PTT INR 1.72 (0.82-1.09) H 07/02/17 17:25 Problem List - Problems (1) COPD (chronic obstructive pulmonary disease) Code(s): J44.9 - CHRONIC OBSTRUCTIVE PULMONARY DISEASE, UNSPECIFIED Qualifiers: COPD type: unspecified COPD Qualified Code(s): J44.9 - Chronic obstructive pulmonary disease, unspecified (2) Palpitations Code(s): R00.2 - PALPITATIONS (3) Paroxysmal atrial fibrillation Code(s): I48.0 - PAROXYSMAL ATRIAL FIBRILLATION (4) Pneumonia Code(s): J18.9 - PNEUMONIA, UNSPECIFIED ORGANISM (5) Coronary artery disease Code(s): I25.10 - ATHSCL HEART DISEASE OF [place] CORONARY ARTERY W/O ANG PCTRS Qualifiers: Coronary Disease-Associated Artery/Lesion type: [place] artery [place] vs. transplanted heart: [place] heart Associated angina: without angina Qualified Code(s): I25.10 - Atherosclerotic heart disease of [place] coronary artery without angina pectoris (6) Diastolic dysfunction without heart failure Code(s): I51.9 - HEART DISEASE, UNSPECIFIED (7) HTN (hypertension) Code(s): I10 - ESSENTIAL (PRIMARY) HYPERTENSION Qualifiers: Hypertension type: essential hypertension Qualified Code(s): I10 - Essential (primary) hypertension (8) Hyperlipemia Code(s): E78.5 - HYPERLIPIDEMIA, UNSPECIFIED Qualifiers: Hyperlipidemia type: pure hypercholesterolemia Qualified Code(s): E78.00 - Pure hypercholesterolemia, unspecified; E78.0 - Pure hypercholesterolemia Assessment/Plan 04/2015 Echo: Normal LV size and fxn, mild-mod MR, mild AR 1. Pneumonia/bronchitis with underlying COPD, resolving 2. Recurrent symptomatic paroxysmal atrial fibrillation currently in sinus rhythm [id number] score of 6, compliant on NOAC's/Eliquis 3. CAD non-obstructive CAD angina pectoris, stable 4. LV diastolic dysfunction with chronic class I NYHA classification LV failure , compensated/euvolemic 5. HTN, not at goal 6. DM 7. Hypercholesterolemia 8. COPD 9. History of PTE 10. History of recurrent small bowel obstruction post diagnostic laparoscopy/ laparotomy and extensive lysis of adhesions with small bowel resection 11. Anemia PLAN: 1. Continue Diovan and titrate dosage 2. Continue Betapace 3. Continue Lasix 4. Continue NOAC's/Eliquis with close monitoring of CBC maintaining Hg equal or > 8.0 5. Antibiotics, steroids and bronchodilators as per the primary team CAP resolved Rapid atrial fib controlled COPD HTN CKD Chronic anemia DM Plan: steroid taper as outpatient bronchodilators O2 as needed glycemic control anticoagulation
[2017-07-08 14:52] VITALS: BP 140/79; PULSE 62; TEMP 98.2
[2017-07-08 16:31] LABS: TOTAL PROTEIN, URINE 19.3 mg/dL (Not Estab.)
[2017-07-09 06:05] LABS: HGB SOLUBILITY Negative (Negative); Hgb A 98.4 % (96.4-98.8); Hgb C 0 % (0.0); Hgb F 0 % (0.0-2.0); Hgb S 0 % (0.0)
== END 2017-07-08 13:16 | disposition home or self-care (01) | DRG 190 ==
LOC: JER 16:56 → JERBED 20:44 → J4S 07-03 16:51
PROVIDERS: ADMIT Internal Medicine; ATTEND Family Medicine
DX: J44.1 Chronic obstructive pulmonary disease with (acute) exacerbation (principal); J18.9 Pneumonia, unspecified organism; I50.33 Acute on chronic diastolic (congestive) heart failure; I13.0 Hypertensive heart and chronic kidney disease with heart failure and stage 1 through stage 4 chronic kidney disease, or unspecified chronic kidney disease; E78.5 Hyperlipidemia, unspecified; I48.0 Paroxysmal atrial fibrillation; E11.22 Type 2 diabetes mellitus with diabetic chronic kidney disease; N18.9 Chronic kidney disease, unspecified; D72.829 Elevated white blood cell count, unspecified; D64.9 Anemia, unspecified; E11.65 Type 2 diabetes mellitus with hyperglycemia; I25.119 Atherosclerotic heart disease of native coronary artery with unspecified angina pectoris; R00.2 Palpitations; E83.42 Hypomagnesemia
CPT/HCPCS: 36415; 71045-TC; 71046-TC; 71250-TC; 80048; 80053; 82272; 82550; 82607; 82728; 82746; 82962; 83021; 83036; 83540; 83550; 83735; 84100; 84155; 84156; 84157; 84165; 84439; 84443; 84484; 85025; 85044; 85610; 85651; 85660; 85730; 86140; 87040; 87081; 87804; 87899; 93005; 93010; 94640; 97116-GP; 97161-GP; 99285-25

== ENCOUNTER 2017-08-27 10:43 | Day surgery (SDC) | payer OTHER, MEDICARE ==
[~2017-08-27 10:43] MED LIST: IRON SUCROSE INJECTION 200 MG in SODIUM CHLORIDE 100 ML IVPB ONE
[2017-08-27 14:00] VITALS: BP 158/78; PULSE 88; TEMP 98.7
== END 2017-08-27 14:22 | disposition home or self-care (01) ==
LOC: JINFUSION 10:43
PROVIDERS: ATTEND Family Medicine
PROC: 3E033GC Introduction of Other Therapeutic Substance into Peripheral Vein, Percutaneous Approach (ICD-10-PCS; principal; 2017-08-27)
DX: D50.9 Iron deficiency anemia, unspecified (principal)
CPT/HCPCS: 96365

== ENCOUNTER 2018-12-06 11:00 | Day surgery (SDC) | payer OTHER, MEDICARE ==
[~2018-12-06 11:00] MED LIST changes: -IRON SUCROSE INJECTION 200 MG in SODIUM CHLORIDE 100 ML IVPB ONE; +IRON SUCROSE INJECTION 300 MG in SODIUM CHLORIDE 250 ML IVPB ONE; +diphenhydrAMINE HCL 50 MG CAPSULE PO PRN; +methylPREDNISolone NA SUCC 125 MG/2 ML VIAL IVPUSH PRN
[2018-12-06 12:19] VITALS: TEMP 98.2
[2018-12-06 14:09] VITALS: BP 139/83; PULSE 69
== END 2018-12-06 14:35 | disposition home or self-care (01) ==
LOC: JINFUSION 11:00 → JRADIR 11:00 → JINFUSION 14:35
PROVIDERS: ATTEND Family Medicine
PROC: 3E033GC Introduction of Other Therapeutic Substance into Peripheral Vein, Percutaneous Approach (ICD-10-PCS; principal; 2018-12-06)
DX: D50.9 Iron deficiency anemia, unspecified (principal)
CPT/HCPCS: 96365; J1756

== ENCOUNTER 2019-01-24 11:46 | Day surgery (SDC) | payer OTHER, MEDICARE ==
[~2019-01-24 11:46] MED LIST changes: +HYDROCORTISONE SOD SUCCINATE 100 MG/2 ML VIAL IVPUSH PRN; -methylPREDNISolone NA SUCC 125 MG/2 ML VIAL IVPUSH PRN
[2019-01-24 14:16] VITALS: TEMP 98
[2019-01-24 14:59] VITALS: BP 166/52; PULSE 87
== END 2019-01-24 15:00 | disposition home or self-care (01) ==
LOC: JINFUSION 11:46
PROVIDERS: ATTEND Family Medicine
PROC: 3E033GC Introduction of Other Therapeutic Substance into Peripheral Vein, Percutaneous Approach (ICD-10-PCS; principal; 2019-01-24)
DX: D50.9 Iron deficiency anemia, unspecified (principal)
CPT/HCPCS: 96365; J1756

== ENCOUNTER 2019-03-01 08:30 | Day surgery (SDC) | payer OTHER, MEDICARE ==
[2019-02-24 16:28] VITALS: BMI 31.1
--- NOTE | 2019-03-01 08:05 | HP ---
[facility] - Chief Complaint Chief Complaint: left knee pain - Past Medical History Allergies/Adverse Reactions: Allergies Allergy/AdvReac Type Severity Reaction Status Date / Time No Known Allergies Allergy Verified 02/24/19 15:57 Cardiovascular: Yes: AFIB (paroxysmal atrial fibrillation. Normal coronaries on 2013 cath. 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) Hepatobiliary: Yes: Cholelithiasis Heme/Onc: Yes: Anemia Musculoskeletal: Yes: Chronic low back pain, Osteoarthritis Endocrine: Yes: Osteopenia Additional Medical History: SBO - Current Medications Current Medications: Home Medications Medication Instructions Recorded Apixaban [Eliquis -] 5 mg PO BID #60 tablet 12/09/15 Sotalol HCl [Betapace -] 80 mg PO BID #60 tablet 12/09/15 Esomeprazole Magnesium 40 mg PO DAILY 12/06/18 Gabapentin [Neurontin -] 300 mg PO TID 12/06/18 Icosapent Ethyl [Vascepa] 1 gm PO BID 12/06/18 Losartan Potassium 25 mg PO DAILY 12/06/18 Montelukast Sodium [Singulair] 10 mg PO HS 12/06/18 Oxybutynin Chloride [Oxybutynin 10 mg PO DAILY 12/06/18 Chloride ER] Albuterol 2.5/Ipratropium 0.5 1 amp NEB TID 02/24/19 [Duoneb -] Ascorbic Acid [Vitamin C -] 1,000 mg PO DAILY 02/24/19 Atorvastatin Ca [Lipitor] 40 mg PO HS 02/24/19 Biotin 10,000 mcg PO DAILY 02/24/19 Calcium Carb/D3/Magnesium/Zinc 1 each PO DAILY 02/24/19 [Kenny Mag Zinc + D Tablet] Cetirizine HCl [Zyrtec -] 10 mg PO DAILY 02/24/19 Cholecalciferol (Vitamin D3) 1,000 unit PO DAILY 02/24/19 [Vitamin D3] Cranberry Fruit Extract [Theracran 50 mg PO DAILY 02/24/19 Hp For Kids] Furosemide 20 mg PO DAILY 02/24/19 Glucosam/Chond/Hyalu/Cf Borate 1 each PO BID 02/24/19 [Move Free Joint Health Tablet] Guaifenesin [Mucinex] 600 mg PO BID 02/24/19 L. Rhamnosus GG/Inulin [Culturelle 1 each PO DAILY 02/24/19 Capsule] Multivit-Min/FA/Lycopen/Lutein 1 each PO DAILY 02/24/19 [Centrum Silver Tablet] Nitrofurantoin Monohyd/M-Cryst 100 mg PO BID 02/24/19 [Macrobid -] Sulfasalazine 1,000 mg PO BID 02/24/19 Satellite Physical Exam - Physical Examination General Appearance: Well Nourished, Well Developed, Alert & Oriented x3 ENT: Clear Lung: Normal air movement Heart: Regular rate & rhythm Extremities: Other (left knee- + swelling, + ttp medially, decr rom, nvi, xrays show grade 4 medial compartment djd) Neurological: Intact, Alert, Oriented Satellite Impression/Plan - Impression/Plan Impression: left knee medial djd Operative Procedure: left medial candi ukr Date to be Performed: 03/01/19
[2019-03-01] MEDS ORDERED: ONDANSETRON 4 MG/2 ML VIAL IVPUSH PRN ×2 (08:38→12:39)
[2019-03-01] MEDS ORDERED: oxyCODONE HCL 5 MG TABLET PO PRN ×2 (08:38)
[2019-03-01] MEDS ORDERED: TRANEXAMIC ACID 1000 MG/10 ML VIAL IVPUSH ONE (08:52)
[2019-03-01] MEDS ORDERED: CEFAZOLIN 2 GM in DEXTROSE 5%-WATER - 50 ML IVPB ONE (08:52)
[2019-03-01] MEDS ORDERED: CELECOXIB 200 MG CAPSULE PO ONE (08:52)
[2019-03-01] MEDS ORDERED: ROPIVICAINE 0.2%/MORPH PF/KETOROLAC - 51ML DISP.SYRINGE IA ONE ×2 (08:52→12:05)
[2019-03-01] MEDS ORDERED: MIDAZOLAM HCL 2 MG/2 ML SINGLE DOSE VIAL ONE ×3 (09:40→12:03)
[2019-03-01] MEDS ORDERED: SODIUM CHLORIDE 0.9% P/F 10 ML VIAL IJ ONE (09:41)
[2019-03-01] MEDS ORDERED: BUPIVACAINE HCL/PF 0.5% (5 MG/ML) 30 ML VIAL IJ ONE (09:41)
[2019-03-01] MEDS ORDERED: DEXAMETHASONE SOD PHOSPHATE/PF 10 MG/ML SDV ONE (09:41)
[2019-03-01] MEDS ORDERED: THROMBIN (RECOMBINANT) 5,000 UNIT VIAL TP ONE (10:12)
[2019-03-01] MEDS ORDERED: ceFAZolin SODIUM 1 GM VIAL ONE ×2 (10:12→11:10)
[2019-03-01] MEDS ORDERED: GELATIN, ABSORBABLE 12-7MM EACH SPONGE TP ONE ×2 (10:12→12:04)
[2019-03-01] MEDS ORDERED: DEXAMETHASONE SOD PHOSPHATE 4 MG/1 ML VIAL ONE (11:05)
[2019-03-01] MEDS ORDERED: ACETAMINOPHEN 1000 MG/100 ML VIAL (NON FORMULARY) IVPB ONE (12:00)
[2019-03-01] MEDS ORDERED: THROMBIN (BOVINE) 5,000 UNIT VIAL TP ONE (12:04)
[2019-03-01] MEDS ORDERED: MAG HYDROX/AL HYDROX/SIMETH 30 ML UNIT-DOSE CUP PO PRN (12:39)
--- NOTE | 2019-03-01 12:42 | OP ---
Operative Note - Note: Operative Date: 03/01/19 (eric) Pre-Operative Diagnosis: left knee medial djd Operation: left medial candi ukr Post-Operative Diagnosis: Same as Pre-op Surgeon: Diego Silverio Drain Layer: Robby Dai Anesthesiologist/DISTRICT BRANCH MANAGER: Elda Ordonez Anesthesia: Spinal, Local Specimens Removed: bone fragments Estimated Blood Loss (mls): 100 Operative Report Dictated: Yes
[2019-03-01] MEDS ORDERED: LACTATED RINGERS SOLUTION 1,000 ML IV SCH (12:45)
[2019-03-01] MEDS ORDERED: ACETAMINOPHEN INJECTION 100 ML IVPB ONE (13:14)
[2019-03-01] MEDS ORDERED: ALBUTEROL SO4 2.5/IPRATROPIUM 0.5 INH SOL 3 ML VIAL.NEB. NEB PRN (14:00)
[2019-03-01] MEDS: CEFAZOLIN 2 GM/D5W 2 GM/50 ML ML IVPB SCH (18:27)
[2019-03-01] MEDS: oxyCODONE HCL 10 MG SUSTAINED ACTING TABLET PO SCH ×2 (18:29→22:20)
--- NOTE | 2019-03-01 19:30 | SPEC ---
DATE OF OPERATION: 03/01/2019 PREOPERATIVE DIAGNOSIS: Degenerative joint disease, left knee. POSTOPERATIVE DIAGNOSIS: Degenerative joint disease, left knee. PROCEDURE: Left medial unicompartmental knee replacement with robotic-assisted navigation (MAKOplasty) and patelloplasty. SURGICAL ATTENDING: Diego Silverio MD LOG YARD DERRICK OPERATOR: CRUZ Fraser ANESTHESIA: Regional and spinal. CLOSURE: Medial unicompartmental CARON components with a 3 femur, 3 tibia, and an 8 polyethylene; No. 1 Vicryl, fascia; 0 and 2-0, subcutaneous; 3-0 Monocryl subcuticular with skin glue; 4-0 undyed Vicryl for pin sites. ESTIMATED BLOOD LOSS: Less than 100 mL. COMPLICATIONS: None. CONDITION: To recovery in stable condition. DESCRIPTION OF OPERATIVE PROCEDURE: Patient was taken to the operating room on March 01, 2019. Spinal and regional anesthesia was administered by the anesthesiologist. IV Kefzol and TXA were administered prophylactically prior to the case. A well-padded pneumatic tourniquet was placed on the left proximal thigh. The left lower extremity was prepped and draped in the usual sterile fashion. A 6- to 8-cm longitudinal incision over the medial side of the patella from mid patella to the tibial tubercle was incised and was deepened using Bovie cautery. An arthrotomy was then made just medial to the patellar tendon and the patella. Subperiosteal dissection was done on the anteromedial proximal tibia all the way back to the MCL. Partial fat pad excision was performed, exposing the medial compartment. Checkpoint was malleable at both the femur and the tibia. Using 2 stab incisions in the femur 1 handbreadth above the patella on the femur and 2 stab incisions 1 handbreadth below the tibial tubercle on the tibia, 2 threaded pins were drilled in parallel fashion from anterior to posterior, going through the proximal cortex and engaging the 2nd but not through the 2nd cortex. To these threaded pins were fastened navigation rays, 1 on the femur and 1 on the tibia. The knee was then registered with the navigation device with the center of the rotation of the hip, medial and lateral malleoli, and multiple points both on the femur and on the tibia. Excellent registration of less than 0.5 mm was obtained on both to ensure adequate registration. The navigation device ensured us to "pop the bubbles" both on the femur and the tibia and that was performed and passed registration. The knee was then thoroughly inspected to remove all osteophytes both on the femur and the tibia. Also, osteophytes on the trochlea and on the surface of the patella were removed as well. The knee was then stressed with valgus stress at 0, 30, 60, 90, and 120 degrees of flexion. This propagated a looseness/tightness graft. The virtual positions of the components were then optimized to ensure an excellent graft. The tracking also was optimized by manipulating the virtual position to ensure that the femoral component articulated with the central portion of the tibial component. The robot was then brought into the field and was registered. The robot was used to bur the bone on both the femur and the tibia as to the specifications of the components. The trial components were then applied on both the femur and the tibia with an appropriate polyethylene insert. The knee was taken through a range of motion and found to have full extension, full flexion, with excellent stability. Stressing the graft revealed an excellent looseness/tightness graft with the trial components in place. The trial components were removed. The knee was thoroughly irrigated with a copious amount of antibiotic irrigation. The real components were then cemented in using modern generation cement techniques with antibiotic cement and pressurization. After the cement was hardened, the knee was thoroughly inspected to remove out all excess cement. The real polyethylene insert was then clipped into place. Range of motion and stability were again assessed to be as they were with the trials. At this time, the pins and the checkpoints were removed. The knee was again thoroughly irrigated. The arthrotomy was closed with No. 1 Vicryl, 0 and 2-0 subcutaneous, and 3-0 Monocryl subcuticular with skin glue for the skin, 4-0 undyed Vicryl for the pin sites. Sterile pressure dressing was placed over the knee. Patient awakened from anesthesia and transferred to recovery in stable condition. No complications. Estimated blood loss negligible. X-rays postoperatively revealed excellent position of the components. Michi BRANNON/[id number]
[2019-03-01] MEDS ORDERED: ATORVASTATIN CA 40 MG TABLET (FP) PO SCH (22:00)
[2019-03-01] MEDS ORDERED: PATIENT'S OWN MEDICATION (NON-FORMULARY) (Icosapent Ethyl [Vascepa] 1 GM) PO SCH (22:00)
[2019-03-01] MEDS ORDERED: MONTELUKAST NA 10 MG TABLET PO SCH (22:00)
[2019-03-01] MEDS: GABAPENTIN 300 MG CAPSULE (FP) PO SCH (22:19)
[2019-03-01] MEDS: SENNOSIDES/DOCUSATE COMBO (SENNA PLUS) TABLET (UD) PO SCH (22:20)
[2019-03-02] MEDS: CEFAZOLIN 2 GM/D5W 2 GM/50 ML ML IVPB SCH (02:53)
[2019-03-02] MEDS ORDERED: APIXABAN 5 MG TABLET PO SCH (08:00)
[2019-03-02] MEDS ORDERED: PT OWN MED DRAWER 7, Y5N ONE (09:08)
--- NOTE | 2019-03-02 09:08 | PN ---
Progress Note (short form) - Note Progress Note: Ortho Pt seen and examined s/p left medial candi ukr pod #1 Selected Entries 03/02/19 06:00 Temperature 98.5 F Pulse Rate 74 Respiratory 19 Rate Blood Pressure 156/63 dressing c/d/i, calf soft, nt rom 0-70, nvi a/p PT dvt ppx pain control d/c home today f/u in 1 week
--- NOTE | 2019-03-02 09:09 | DS ---
Physical Examination Vital Signs: Vital Signs Temperature 98.5 F 03/02/19 06:00 Pulse Rate 74 03/02/19 06:00 Respiratory Rate 19 03/02/19 06:00 Blood Pressure 156/63 03/02/19 06:00 O2 Sat by Pulse Oximetry (%) 96 03/02/19 06:00 Discharge Summary Reason For Visit: OSTEOARTHRITIS Procedures: Principal: left medial candi ukr Hospital Course: admitted for elective left medial candi ukr, post-op as per protocol, stable for d/c Condition: Good - Instructions Diet, Activity, Other Instructions: Post-op Instructions-Partial Knee Replacement Call the office for a follow-up appointment in 1 week - [phone] Resume Izzy. Pain medication was sent into your pharmacy. Apply Graduated Compression Stockings (TEDs) to both lower extremities- remove daily for hygiene ONLY Apply Sequential Compression Device (SCDs) to both Lower extremities remove for PT and hygiene ONLY Apply cold packs to affected area for 15 minutes every 2 hours. Physical Therapist will come to your home for the first 5 days. You will be set up with outpatient PT at your first post-operative visit. Patient may ambulate as tolerated-encourage self care (at least every 2-3 hours while awake) with walker or cane Maintain Aquacel (waterproof) dressing to operative wound (will be removed by surgeon at first office visit) Shower with Aquacel dressing in place-if Aquacel integrity compromised, remove and apply dry sterile dressing and notify Orthopedist. DO NOT SHOWER unless Orthopedists approves without Aquacel dressing CONTACT THE OFFICE FOR ANY CHANGE IN YOUR CONDITION (for example-fever greater than 102 degrees, excessive bleeding from operative site, purulent drainage, severe swelling or pain) GO TO THE EMERGENCY ROOM IF THERE IS A MEDICAL EMERGENCY Knee Precautions: * Keep a rolled towel under affected heel while in bed or chair (to keep knee in extension) * Keep affected leg elevated except during mealtimes * DO NOT PLACE PILLOW UNDER AFFECTED KNEE * If you have any questions, please do not hesitate to call the office - . Referrals: Diego Silverio MD [Staff Physician] - Disposition: VNS/HOME HEALTH CARE - Home Medications Comprehensive Discharge Medication List: Ambulatory Orders Apixaban [Eliquis -] 5 mg PO BID #60 tablet 12/09/15 Sotalol HCl [Betapace -] 80 mg PO BID #60 tablet 12/09/15 Esomeprazole Magnesium 40 mg PO DAILY 12/06/18 Gabapentin [Neurontin -] 300 mg PO BID 12/06/18 Icosapent Ethyl [Vascepa] 1 gm PO BID 12/06/18 Losartan Potassium 25 mg PO DAILY 12/06/18 Montelukast Sodium [Singulair] 10 mg PO HS 12/06/18 Oxybutynin Chloride [Oxybutynin Chloride ER] 10 mg PO DAILY 12/06/18 Albuterol 2.5/Ipratropium 0.5 [Duoneb -] 1 amp NEB TID 02/24/19 Ascorbic Acid [Vitamin C -] 1,000 mg PO DAILY 02/24/19 Atorvastatin Ca [Lipitor] 40 mg PO HS 02/24/19 Biotin 10,000 mcg PO DAILY 02/24/19 Calcium Carb/D3/Magnesium/Zinc [Kenny Mag Zinc + D Tablet] 1 each PO DAILY Cetirizine HCl [Zyrtec -] 10 mg PO DAILY 02/24/19 Cholecalciferol (Vitamin D3) [Vitamin D3] 1,000 unit PO DAILY 02/24/19 Cranberry Fruit Extract [Theracran Hp For Kids] 50 mg PO DAILY 02/24/19 Furosemide 20 mg PO DAILY 02/24/19 Glucosam/Chond/Hyalu/Cf Borate [Move Free Joint Health Tablet] 1 each PO BID 06/02 Guaifenesin [Mucinex] 600 mg PO BID 02/24/19 L. Rhamnosus GG/Inulin [Culturelle Capsule] 1 each PO DAILY 02/24/19 Multivit-Min/FA/Lycopen/Lutein [Centrum Silver Tablet] 1 each PO DAILY 02/24/19 Nitrofurantoin Monohyd/M-Cryst [Macrobid -] 100 mg PO BID 02/24/19 Sulfasalazine 1,000 mg PO BID 02/24/19
[2019-03-02] MEDS: LACTATED RINGERS SOLUTION 1,000 ML IV SCH (09:19)
[2019-03-02] MEDS: GABAPENTIN 300 MG CAPSULE (FP) PO SCH (09:20)
[2019-03-02] MEDS: SENNOSIDES/DOCUSATE COMBO (SENNA PLUS) TABLET (UD) PO SCH (09:20)
[2019-03-02] MEDS: oxyCODONE HCL 10 MG SUSTAINED ACTING TABLET PO SCH (09:20)
--- NOTE | 2019-03-02 09:47 | PN ---
Progress Note, Physician Chief Complaint: AWAKE ALERT S/P LEFT KNEE CARON AWAKE ALERT POD#1 DENIES CHEST PAIN NO SOB NO FEVER/CHILLS - Current Medication List Current Medications: Active Medications Al Hydroxide/Mg Hydroxide (Mylanta Oral Suspension -) 30 ml PO Q4H PRN PRN Reason: DYSPEPSIA Albuterol/Ipratropium (Duoneb -) 1 amp NEB Q8H PRN PRN Reason: SHORTNESS OF BREATH Apixaban (Eliquis -) 5 mg PO BID [facility] Last Admin: 03/02/19 09:20 Dose: 5 mg Atorvastatin Calcium (Lipitor -) 40 mg PO HS [facility] Last Admin: 03/01/19 22:20 Dose: 40 mg Furosemide (Lasix -) 20 mg PO DAILY [facility] Last Admin: 03/02/19 09:20 Dose: 20 mg Gabapentin (Neurontin -) 300 mg PO BID [facility] Last Admin: 03/02/19 09:20 Dose: 300 mg Lactated Ringer's (Lactated Ringers Solution) 1,000 mls @ 75 mls/hr IV ASDIR [facility] Last Admin: 03/02/19 09:19 Dose: Not Given Losartan Potassium (Cozaar -) 25 mg PO DAILY [facility] Last Admin: 03/02/19 09:20 Dose: 25 mg Montelukast Sodium (Singulair -) 10 mg PO [facility] Last Admin: 03/01/19 22:19 Dose: 10 mg Multivitamins/Minerals/Vitamin C (Tab-A-Vit -) 1 tab PO DAILY [facility] Last Admin: 03/02/19 09:20 Dose: 1 tab Non-Formulary Medication (Icosapent Ethyl [Vascepa]) 1 gm PO BID [facility] Ondansetron HCl (Zofran Injection) 4 mg IVPUSH Q6H PRN PRN Reason: NAUSEA Oxycodone HCl (Roxicodone -) 10 mg PO Q4H PRN PRN Reason: PAIN LEVEL 6-10 Oxycodone HCl (Roxicodone -) 5 mg PO Q4H PRN PRN Reason: PAIN LEVEL 1-5 Oxycodone HCl (Oxycontin -) 10 mg PO BID [facility] Stop: 03/04/19 08:39 Last Admin: 03/02/19 09:20 Dose: 10 mg Pantoprazole Sodium (Protonix -) 40 mg PO DAILY [facility] Senna/Docusate Sodium (Pericolace -) 2 tablet PO BID [facility] Last Admin: 03/02/19 09:20 Dose: 2 tablet Solifenacin (Vesicare -) 5 mg PO DAILY [facility] Last Admin: 03/02/19 09:20 Dose: 5 mg Sulfasalazine (Azulfidine En-Tabs -) 1,000 mg PO BID [facility] Last Admin: 03/02/19 09:20 Dose: 1,000 mg - Objective Vital Signs: Vital Signs Temperature 98.5 F 03/02/19 06:00 Pulse Rate 74 03/02/19 06:00 Respiratory Rate 03/02/19 06:00 Blood Pressure 156/63 03/02/19 06:00 O2 Sat by Pulse Oximetry (%) 96 03/02/19 06:00 Constitutional: Yes: No Distress Cardiovascular: Yes: Regular Rate and Rhythm Respiratory: Yes: WNL Gastrointestinal: Yes: WNL Genitourinary: Yes: WNL Musculoskeletal: Yes: Other Extremities: Yes: Other (LEFT KNEE DRESSING) Edema: Yes Integumentary: Yes: Other Wound/Incision: Yes: Dressing Dry and Intact Neurological: Yes: WNL ...Motor Strength: LLE Psychiatric: Yes: WNL Problem List - Problems (2) DJD (degenerative joint disease) of knee Code(s): M17.10 - UNILATERAL PRIMARY OSTEOARTHRITIS, UNSPECIFIED KNEE (3) Afib Code(s): I48.91 - UNSPECIFIED ATRIAL FIBRILLATION Qualifiers: Atrial fibrillation type: persistent Qualified Code(s): I48.1 - Persistent atrial fibrillation (4) Diabetes Code(s): E11.9 - TYPE 2 DIABETES MELLITUS WITHOUT COMPLICATIONS Qualifiers: Diabetes mellitus type: type 2 Diabetes mellitus senior living insulin use: without senior living use Diabetes mellitus complication status: without complication Qualified Code(s): E11.9 - Type 2 diabetes mellitus without complications Assessment/Plan S/P LEFT KNEE SURGERY FOR DJD CARON PAIN CONTROLL PT EVAL OOB TO CHAIR DC PLANNING FOR TODAY NO OBJECTION MONITOR BP, BGM AND SEE YOUR PRIMARY DOCTOR IN 1 WEEK
[2019-03-02 09:50] VITALS: BP 153/48; PULSE 70; TEMP 98.3
[2019-03-02] MEDS ORDERED: PANTOPRAZOLE 40 MG TABLET (FP) PO SCH (10:00)
[2019-03-02] MEDS ORDERED: LOSARTAN POTASSIUM 25 MG TABLET PO SCH (10:00)
[2019-03-02] MEDS ORDERED: MULTIVITAMINS (DAILY MVI) TABLET (FP) PO SCH (10:00)
[2019-03-02] MEDS ORDERED: FUROSEMIDE 20 MG TABLET (FP) PO SCH (10:00)
[2019-03-02] MEDS ORDERED: SOLIFENACIN SUCCINATE 5 MG TAB PO SCH (10:00)
--- NOTE | 2019-03-02 13:49 | PN ---
Progress Note (short form) - Note Progress Note: POD1 s/p left medial knee replacement under block and spinal. Pt about to be discharged; ambulating with walker, with only mild discomfort. Pain well controlled overnight. No anesthetic issues/complications
== END 2019-03-02 13:47 | disposition home health service (06) ==
LOC: FASU 08:30 → FASUSAT 08:30 → FM/S 15:00 → FASUSAT 03-02 13:47
PROVIDERS: ATTEND Orthopaedic Surgery
PROC: 8E0YXBZ Computer Assisted Procedure of Lower Extremity (ICD-10-PCS; 2019-03-01)
PROC: 8E0Y0CZ Robotic Assisted Procedure of Lower Extremity, Open Approach (ICD-10-PCS; 2019-03-01)
PROC: 0SRD0L9 Replacement of Left Knee Joint with Medial Unicondylar Synthetic Substitute, Cemented, Open Approach (ICD-10-PCS; principal; 2019-03-01 11:19)
DX: M17.12 Unilateral primary osteoarthritis, left knee (principal)
CPT/HCPCS: 20985; 27446; C1776; S2900; 73560-TC-LT-FY; 87081; 87186; 94760; 97116-GP; 97163-GP; J0131

== ENCOUNTER 2020-02-24 04:58 | Day surgery (SDC) | payer OTHER, MEDICARE ==
[2020-02-23 12:58] VITALS: BMI 31.1
[~2020-02-24 04:58] MED LIST changes: -HYDROCORTISONE SOD SUCCINATE 100 MG/2 ML VIAL IVPUSH PRN; +IOHEXOL 180 MG/1 ML ML IJ ONE; -IRON SUCROSE INJECTION 300 MG in SODIUM CHLORIDE 250 ML IVPB ONE; +LIDOCAINE HCL 1% PRESERVATIVE FREE - 30ML VIAL NR ONE; -diphenhydrAMINE HCL 50 MG CAPSULE PO PRN
--- NOTE | 2020-02-24 10:11 | PROC ---
Procedure Note Procedure: Pre procedure Diagnosis: Lumbar Radiculopathy Post Procedure Diagnosis: same Anesthesia: Local Procedure Performed: Left L4 and L5 Transforaminal Epidural Steroid Injection After the risks and benefits were explained, informed consent was obtained. The patient was then taken to the procedure room and positioned prone on the procedure table. Time out was performed. The region overlying the Left L4 and L5 neural foramens were identified using fluoroscopy. The skin was prepped and draped in the usual sterile fashion. The skin and soft tissues were anesthetized using 1% lidocaine. The neural foramens were identified with the fluoroscopic beam directed in a right oblique direction. 2 22 gauge 3.5 inch spinal needles were then introduced into the appropriate neural foramens using intermittent fluoroscopic guidance using AP, oblique and lateral views as indicated. Needle placement was then confirmed with the injection of Omnipaque 180. Epidural flow was noted and the nerve root was outlined. No vascular uptake was noted. Next, a mixture 1.5 cc of dexamethasone and Normal saline followed by 0.5 cc of 1% lidocaine was then injected around the Left L4 and L5 spinal nerves. The patient tolerated the procedure well and there were no complications. The patient was taken to the post procedure recovery area in good condition. Vital signs remained stable before, during, and after the procedure. The patient was given oral and written follow-up instructions. The patient was given a follow up appointment with me in the near future. Alexander Munoz DO
--- NOTE | 2020-02-24 10:11 | HP ---
Admitting History and Physical - Admission Chief Complaint: Low back and Left Leg pain History of Present Illness: The patient has left low back and leg pain likley due to lumbar radiculopathy. History Source: Patient - Past Medical History Cardiovascular: Yes: AFIB (paroxysmal atrial fibrillation. Normal coronaries on 2013 cath. 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) Hepatobiliary: Yes: Cholelithiasis Heme/Onc: Yes: Anemia Musculoskeletal: Yes: Chronic low back pain, Osteoarthritis Endocrine: Yes: Osteopenia - Past Surgical History Past Surgical History: Yes: Appendectomy (SBO ABDOMINAL WALL HERNIA S/P REPAIR), Breast Biopsy, Cataract Removal, Colectomy, Colonoscopy, Hysterectomy, Upper Endoscopy (colon adenomas removed, Schatzk ring dilated) - Smoking History Smoking history: Never smoked Have you smoked in the past 12 months: No Aproximately how many cigarettes per day: 0 - Alcohol/Substance Use Hx Alcohol Use: No (RARELY) History of Substance Use: reports: None - Social History ADL: Independent Occupation: retired [employer] History of Recent Travel: No Home Medications - Allergies Allergies/Adverse Reactions: Allergies Allergy/AdvReac Type Severity Reaction Status Date / Time No Known Allergies Allergy Verified 02/24/19 15:57 - Home Medications Home Medications: Ambulatory Orders Apixaban [Eliquis -] 5 mg PO BID #60 tablet 12/09/15 Sotalol HCl [Betapace -] 80 mg PO BID #60 tablet 12/09/15 Esomeprazole Magnesium 40 mg PO DAILY 12/06/18 Gabapentin [Neurontin -] 300 mg PO BID 12/06/18 Icosapent Ethyl [Vascepa] 1 gm PO BID 12/06/18 Losartan Potassium 25 mg PO DAILY 12/06/18 Montelukast Sodium [Singulair] 10 mg PO HS 12/06/18 Oxybutynin Chloride [Oxybutynin Chloride ER] 10 mg PO DAILY 12/06/18 Albuterol 2.5/Ipratropium 0.5 [Duoneb -] 1 amp NEB TID 02/24/19 Ascorbic Acid [Vitamin C -] 1,000 mg PO DAILY 02/24/19 Atorvastatin Ca [Lipitor] 40 mg PO HS 02/24/19 Biotin 10,000 mcg PO DAILY 02/24/19 Calcium Carb/D3/Magnesium/Zinc [Kenny Mag Zinc-D Tablet] 1 each PO DAILY 02/24/19 Cetirizine HCl [Zyrtec -] 10 mg PO DAILY 02/24/19 Cholecalciferol (Vitamin D3) [Vitamin D3] 1,000 unit PO DAILY 02/24/19 Cranberry Fruit Extract [Theracran Hp For Kids] 50 mg PO DAILY 02/24/19 Furosemide 20 mg PO DAILY 02/24/19 Glucosam/Chond/Hyalu/Cf Borate [Move Free Joint Health Tablet] 1 each PO BID 02/24/19 Guaifenesin [Mucinex] 600 mg PO BID 02/24/19 L. Rhamnosus GG/Inulin [Culturelle Digest 10B Cell Cap] 1 each PO DAILY 02/24/19 Multivit-Min/FA/Lycopen/Lutein [Centrum Silver Tablet] 1 each PO DAILY 02/24/19 Sulfasalazine 1,000 mg PO BID 02/24/19 Oxycodone HCl/Acetaminophen [Percocet 5-325 mg Tablet] 1 - 2 tab PO Q6H #30 tab MDD 6 03/02/19 Fluticasone Propion/Salmeterol [Wixela 100-50 Inhub] 1 each IH DAILY 02/23/20 Glucosam/Chond/Hyalu/Cf Borate [Move Free Joint Health Tablet] 1 each PO DAILY 02/23/20 Review of Systems - Review of Systems Constitutional: reports: No Symptoms Eyes: reports: No Symptoms HENT: reports: No Symptoms Neck: reports: No Symptoms Cardiovascular: reports: No Symptoms Respiratory: reports: No Symptoms Gastrointestinal: reports: No Symptoms Genitourinary: reports: No Symptoms Breasts: reports: No Symptoms Reported Musculoskeletal: reports: Back Pain Integumentary: reports: No Symptoms Neurological: reports: Parasthesia Endocrine: reports: No Symptoms Hematology/Lymphatic: reports: No Symptoms Psychiatric: reports: No Symptoms Physical Examination Vital Signs: Vital Signs Temperature 97.7 F 02/24/20 09:21 Pulse Rate 53 L 02/24/20 09:21 Respiratory Rate 20 02/24/20 09:21 Blood Pressure 143/67 02/24/20 09:21 O2 Sat by Pulse Oximetry (%) 97 02/24/20 09:22 Constitutional: Yes: No Distress, Calm Eyes: Yes: Conjunctiva Clear, EOM Intact HENT: Yes: Atraumatic, Normocephalic Neck: Yes: Trachea Midline Cardiovascular: Yes: Regular Rate and Rhythm Respiratory: Yes: Regular Gastrointestinal: Yes: WNL ...Rectal Exam: Yes: WNL Renal/: Yes: WNL Musculoskeletal: Yes: Back Pain Extremities: Yes: WNL Neurological: Yes: Paresthesia ...Motor Strength: WNL Psychiatric: Yes: WNL Imaging - Results MRI: Report Reviewed, Image Reviewed Assessment/Plan The patients pain is likley secondary to lumbar radiculopahty at L4- L5 due to foraminal stenosis. 1. I will perform left L4 and L5 transforaminal epidural steroid injection.
[2020-02-24] MEDS ORDERED: DEXAMETHASONE SOD PHOSPHATE/PF 10 MG/ML SDV ONE ×2 (10:15→10:16)
[2020-02-24] MEDS ORDERED: IOHEXOL 180 MG/1 ML ML IJ ONE ×2 (10:23)
[2020-02-24] MEDS ORDERED: DEXAMETHASONE SOD PHOSPHATE 10 MG/1 ML VIAL IM ONE ×2 (10:23)
[2020-02-24] MEDS ORDERED: LIDOCAINE HCL 1% PRESERVATIVE FREE - 30ML VIAL NR ONE ×2 (10:23)
[2020-02-24 12:20] VITALS: BP 156/73; PULSE 73; TEMP 97.8
== END 2020-02-24 12:30 | disposition home or self-care (01) ==
LOC: JASU-SURG 04:58
PROVIDERS: ATTEND Pain Medicine Pain Medicine
PROC: 3E0R33Z Introduction of Anti-inflammatory into Spinal Canal, Percutaneous Approach (ICD-10-PCS; 2020-02-24)
PROC: 3E0R3BZ Introduction of Anesthetic Agent into Spinal Canal, Percutaneous Approach (ICD-10-PCS; principal; 2020-02-24 10:00)
DX: M54.16 Radiculopathy, lumbar region (principal); M54.5 Low back pain
CPT/HCPCS: 76000-TC-FY; J1100

== ENCOUNTER 2020-03-16 04:58 | Day surgery (SDC) | payer OTHER, MEDICARE ==
--- OUTSIDE RECORDS SUMMARY | 2020-03-09 08:00 | XMS ---
:1935 Author Organization [facility] Care Team Providers Name Role Phone Alexander Munoz Unavailable Alexander Munoz Unavailable Re-disclosure Warning The records that you are about to access may contain information from federally- assisted alcohol or drug abuse programs. If such information is present, then the following federally mandated warning applies: This information has been disclosed to you from records protected by federal confidentiality rules (42 CFR part 2). The federal rules prohibit you from making any further disclosure of this information unless further disclosure is expressly permitted by the written consent of the person to whom it pertains or as otherwise permitted by 42 CFR part 2. A general authorization for the release of medical or other information is NOT sufficient for this purpose. The Federal rules restrict any use of the information to criminally investigate or prosecute any alcohol or drug abuse patient.The records that you are about to access may contain highly sensitive health information, the redisclosure of which is protected by Article 27-F of the [facility] Public Health law. If you continue you may haveaccess to information: Regarding HIV / AIDS; Provided by facilities licensed or operated by the [facility] Office of Mental Health; or Provided by the [facility] Office for People With Developmental Disabilities. If such information is present, then the following [facility] mandated warning applies: This information has been disclosed to you from confidential records which are protected by state law. State law prohibits you from making any further disclosure of this information without the specific written consent of the person to whom it pertains, or as otherwise permitted by law. Any unauthorized further disclosure in violation of state law may result in a fine or long-term sentence or both. A general authorization for the release of medical or other information is NOT sufficient authorization for further disclosure. Encounters Encounter Providers Location Date Indications Data Source(s ) Attender: Alexander 02/16/2020 [facility] ([facility] 12:00:00 AM ED Medical, ) Office Attender: Alexander Hamedwin 02/08/2020 12:00:00 AM EDT [facility] ([facility] [place] ) Office Attender: Alexander Hamedwin 01/11/2020 12:00:00 AM EDT [facility] ([facility], ) Office Insurance Providers Payer name Policy type Policy ID Covered Covered libertarian's Policy P mike / Coverage libertarian ID relationship to [facility] ormation type sanchez AARP MEDICARE [id number] SUPPLEMENT [place] MED[place] [id number] PART B [facility] [id number] SP [id number] CARE [employer] MEDICARE [id number] SP [id number] [facility] [id number] SP [id number] CARE [employer] MEDICARE [id number] SP [id number] A [facility] [id number] SP [id number] CARE OPTIONS [facility] [id number] SP [id number] CARE [employer] MEDICARE [id number] SP [id number] A Problems, Conditions, and Diagnoses Code Display Name Description Problem Type Effective Dates Data Source(s) M54.16 Radiculopathy, RADICULOPATHY, Problem 01/11/2020 [facility] ([facility] 12:00:00 AM EDT [facility], ) M54.16 Radiculopathy, RADICULOPATHY, Problem 01/11/2020 [facility] ([facility] 12:00:00 AM EDT [facility], ) M54.16 Radiculopathy, RADICULOPATHY, Problem 01/11/2020 [facility] ([facility] 12:00:00 AM EDT [facility], ) Surgeries/Procedures Procedure Description Date Indications Data Source(s) OFFICE OUTPATIENT VISIT 02/16/2020 [facility] ([facility] 10 MINUTES 12:00:00 AM EDT Medical, ) Documentation of current 02/08/2020 [facility] ([facility] (procedure) 12:00:00 AM EDT [facility]) Documentation of current 02/08/2020 [facility] ([facility] (procedure) 12:00:00 AM EDT [facility], ) Documentation of current 02/08/2020 [facility] ([facility] (procedure) 12:00:00 AM EDT [facility]) Documentation of current 02/08/2020 [facility] ([facility] (procedure) 12:00:00 AM EDT [facility], ) OFFICE OUTPATIENT VISIT 02/08/2020 [facility] ([facility] 15 MINUTES 12:00:00 AM EDT Medical, PC) Documentation of current 02/08/2020 [facility] ([facility] (procedure) 12:00:00 AM EDT [facility], ) OFFICE OUTPATIENT VISIT 02/08/2020 [facility] ([facility] 15 MINUTES 12:00:00 AM EDT Medical, ) Documentation of current 01/11/2020 [facility] ([facility] (procedure) 12:00:00 AM EDT [facility]) Documentation of current 01/11/2020 [facility] ([facility] (procedure) 12:00:00 AM EDT [facility], ) OFFICE OUTPATIENT VISIT 01/11/2020 [facility] ([facility] 15 MINUTES 12:00:00 AM EDT [facility], PC) Documentation of current 01/11/2020 [facility] ([facility] (procedure) 12:00:00 AM EDT [facility]) Documentation of current 01/11/2020 [facility] ([facility] (procedure) 12:00:00 AM EDT [facility]) OFFICE OUTPATIENT VISIT 01/11/2020 [facility] ([facility] 15 MINUTES 12:00:00 AM EDT Medical, PC) Documentation of current 01/11/2020 [facility] ([facility] (procedure) 12:00:00 AM EDT [facility]) Documentation of current 01/11/2020 [facility] ([facility] (procedure) 12:00:00 AM EDT [facility], PC) OFFICE OUTPATIENT VISIT 01/11/2020 [facility] EN ([facility] 15 MINUTES 12:00:00 AM EDT Medical, PC) Results ID Date Data Source [id number] 02/19/2020 01:38:00 PM EDT [facility] Name Value Range Interpretation Description Data Sup porting Code Source(s) Document(s ) SARS [facility] coronavirus 2 RNA This lab was ordered by [facility] and reported by [facility]. Procedure Social History Code Duration Value Status Description Data Source(s ) Smoking 02/16/2020 - No alcohol - completed - No alcohol - No M [facility]GEN ([facility] 12:00:00 AM EDT No smoking no smoking no [facility], ) illicit drugs drugs Smoking 02/16/2020 Unknown if ever completed Unknown if ever [facility] EN ([facility] 12:00:00 AM EDT [facility], [facility]) Smoking 02/16/2020 - No alcohol - completed - No alcohol - No M [facility]GEN ([facility] 12:00:00 AM EDT No smoking no smoking no [facility], ) illicit drugs drugs Smoking 02/16/2020 Unknown if ever completed Unknown if ever [facility] ([facility] 12:00:00 AM EDT [facility], ) Smoking 01/12/2020 - No alcohol - completed - No alcohol - No M EDGEN ([facility] 12:00:00 AM EDT No smoking no smoking no [facility]) illicit drugs drugs Smoking 01/12/2020 Unknown if ever completed Unknown if ever [facility] EN ([facility] 12:00:00 AM EDT [facility] smoked [facility], ) Vital Signs ID Date Data Source UNK Name Value Range Interpretation Code Description Data Source(s) Heart rate 93 /min 93 /min [facility] ([facility] , ) Respiratory rate 15 /min 15 /min [facility] ( [facility] , ) Body temperature 98 F 98 F [facility] ( [facility] , ) Inhaled oxygen 98 % 98 % [facility] ([facility], ) Body mass index 34 kg/m2 34 kg/m2 [facility] (S t (BMI) [Ratio] [facility], ) Diastolic blood 80 mm[Hg] 80 mm[Hg] [facility] (S t pressure [facility]) Systolic blood 160 mm[Hg] 160 mm[Hg] [facility] ([facility]) Body weight 174 lb 174 lb [facility] ([facility]) Body height 60 in 60 in [facility] ([facility]) Heart rate 93 /min 93 /min [facility] ([facility]) Respiratory rate 15 /min 15 /min [facility] ( [facility]) Body temperature 98 F 98 F [facility] ( [facility]) Inhaled oxygen 98 % 98 % [facility] ([facility]) Body mass index 34 kg/m2 34 kg/m2 MED[facility] (S t (BMI) [Ratio] [facility]) Diastolic blood 80 mm[Hg] 80 mm[Hg] [facility] (S t [facility]) Systolic blood 160 mm[Hg] 160 mm[Hg] [facility] ([facility]) Body weight 174 lb 174 lb [facility] ([facility]) Body height 60 in 60 in [facility] ([facility]) Heart rate 75 /min 75 /min [facility] ([facility]) Respiratory rate 15 /min 15 /min [facility] ( [facility]) Body temperature 98 F 98 F [facility] ( [facility]) Inhaled oxygen 98 % 98 % [facility] ([facility]) Body mass index 34 kg/m2 34 kg/m2 MED[facility] (S t (BMI) [Ratio] [facility]) Diastolic blood 70 mm[Hg] 70 mm[Hg] MED[facility] (S t pressure [facility]) Systolic blood 130 mm[Hg] 130 mm[Hg] [facility] ([facility]) Body weight 174 lb 174 lb [facility] ([facility]) Body height 60 in 60 in [facility] ([facility]) Heart rate 75 /min 75 /min [facility] ([facility]) Respiratory rate 15 /min 15 /min [facility] ( [facility]) Body temperature 98 F 98 F [facility] ( [facility]) Inhaled oxygen 98 % 98 % [facility] ([facility]) Body mass index 34 kg/m2 34 kg/m2 MED[facility] (S t (BMI) [Ratio] [facility]) Diastolic blood 70 mm[Hg] 70 mm[Hg] MED[facility] (S t [facility]) Systolic blood 130 mm[Hg] 130 mm[Hg] MED[facility] ([facility]) Body weight 174 lb 174 lb [facility] ([facility]) Body height 60 in 60 in [facility] ([facility]) Heart rate 75 /min 75 /min [facility] ([facility]) Respiratory rate 15 /min 15 /min [facility] ( [facility]) Body temperature 98 F 98 F [facility] ( [facility]) Inhaled oxygen 98 % 98 % [facility] ([facility]) Body mass index 34 kg/m2 34 kg/m2 MED[facility] (S t (BMI) [Ratio] [facility]) Diastolic blood 70 mm[Hg] 70 mm[Hg] [facility] (S t [facility]) Systolic blood 130 mm[Hg] 130 mm[Hg] [facility] ([facility]) Body weight 174 lb 174 lb [facility]) Body height 60 in 60 in [facility] ([facility])
[2020-03-14 14:24] VITALS: BMI 31.1
--- OUTSIDE RECORDS SUMMARY | 2020-03-16 05:27 | XMS ---
:1935 Author Organization [facility] Care Team Providers Name Role Phone Alexander [...] is protected by Article 27-F of the [facility] Public Health law. If you continue you may haveaccess to information: Regarding HIV / AIDS; Provided by facilities licensed or operated by the [facility] Office of Mental Health; or Provided by the [facility] Office for People With Developmental Disabilities. If such information is present, then the following [facility] mandated warning applies: This information has been [...] law may result in a fine or group home sentence or both. A general authorization for the release of medical or other information is NOT sufficient authorization for further disclosure. Encounters Encounter Providers Location Date Indications Data Source(s ) Attender: Alexander 03/08/2020 [facility] ([facility] [place] 12:00:00 AM [facility], ) Office Attender: Alexander Hamedwin 02/16/2020 12:00:00 AM EDT [facility] [place], [place] Office Attender: Alexander [facility]amedwin [facility] [place] Attender: Alexander Hama 01/11/2020 12:00:00 AM [facility] ([facility] [place]) Office Insurance Providers Payer name Policy type Policy ID Covered Covered alliance party's Policy P mike / Coverage alliance party ID relationship to Sanchez Inf ormation type sanchez [facility] [id number] SP [id number] CARE OPTIONS MEDICARE [id number] SP [id number] AARP MEDICARE [id number] SUPPLE[place] [id number] PART B [facility] [id number] SP [id number] CARE OPTIONS MEDICARE [id number] SP [id number] A [facility] [id number] SP [id number] CARE OPTIONS [facility] [id number] SP [id number] CARE [employer] MEDICARE [id number] SP [id number] A Problems, Conditions, and Diagnoses Code Display Name Description Problem Type Effective Data Sour ce(s) Dates 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/[address] [facility] ([address] disorders, not DISORDERS, NOT 12:00:00 AM [facility], ) classified CLASSIFIED M54.16 Radiculopathy, RADICULOPATHY, Problem 01/11/2020 [facility] (St lumbar region LUMBAR REGION 12:00:00 AM [facility], ) M54.16 Radiculopathy, RADICULOPATHY, Problem 01/11/2020 MED[facility] (St lumbar region LUMBAR REGION 12:00:00 AM [facility], ) M54.16 Radiculopathy, RADICULOPATHY, Problem 01/11/2020 MED[facility] (St lumbar region LUMBAR REGION 12:00:00 AM [facility], ) M54.16 Radiculopathy, RADICULOPATHY, Problem 01/11/2020 [facility] (St lumbar region LUMBAR REGION 12:00:00 AM [facility], ) Surgeries/Procedures Procedure Description Date Indications Data Source(s) Documentation of current 03/08/2020 [facility] ([facility] medications (procedure) 12:00:00 AM EDT [facility], ) Documentation of current 03/08/2020 [facility] ([facility] medications (procedure) 12:00:00 AM EDT [facility] ) Documentation of current 03/08/2020 [facility] ([facility] medications (procedure) 12:00:00 AM EDT [facility]anna ) Documentation of current 03/08/2020 [facility] ([facility] (procedure) 12:00:00 AM EDT [facility] ) Documentation of current 03/08/2020 [facility] ([facility] medications (procedure) 12:00:00 AM EDT [facility] ) OFFICE OUTPATIENT VISIT 03/08/2020 [facility] EN ([facility] 15 MINUTES 12:00:00 AM [facility], ) PHYSICIAN TELEPHONE 02/16/2020 [facility] ( [facility]PAT[facility] VISIT 02/16/2020 [facility] EN ([facility] 10 MINUTES 12:00:00 AM [facility], ) Documentation of current 02/08/2020 [facility] ([facility] medications (procedure) 12:00:00 AM EDT [facility] ) Documentation of current 02/08/2020 [facility] ([facility] medications (procedure) 12:00:00 AM EDT [facility] ) Documentation of current 02/08/2020 [facility] ([facility] medications (procedure) 12:00:00 AM EDT [facility] ) Documentation of current 02/08/2020 [facility] ([facility] (procedure) 12:00:00 AM [facility]T [facility] OFFICE OUTPATIENT VISIT 02/08/2020 [facility] EN ([facility] 15 MINUTES 12:00:00 AM [facility]) Documentation of current 02/08/2020 [facility] ([facility] medications (procedure) 12:00:00 AM EDT RAMILA Baker) Documentation of current 02/08/2020 [facility] ([facility] (procedure) 12:00:00 AM EDT [facility]) Documentation of current 02/08/2020 [facility] ([facility] (procedure) 12:00:00 AM EDT [facility]) Documentation of current 02/08/2020 [facility] ([facility] (procedure) 12:00:00 AM EDT [facility] OFFICE OUTPATIENT VISIT 02/08/2020 [facility] EN ([facility] 15 MINUTES 12:00:00 AM EDT [facility]) Documentation of current 02/08/2020 [facility] ([facility] (procedure) 12:00:00 AM EDT [facility]) OFFICE OUTPATIENT VISIT 02/08/2020 [facility] EN ([facility] 15 MINUTES 12:00:00 AM T [facility]) Documentation of current 01/11/2020 [facility] ([facility] (procedure) 12:00:00 AM EDT [facility]) Documentation of current 01/11/2020 [facility] ([facility] (procedure) 12:00:00 AM EDT [facility]) OFFICE OUTPATIENT VISIT 01/11/2020 [facility] EN ([facility] 15 MINUTES 12:00:00 AM EDT [facility]) Documentation of current 01/11/2020 [facility] ([facility] (procedure) 12:00:00 AM EDT [facility]) Documentation of current 01/11/2020 [facility] ([facility] (procedure) 12:00:00 AM EDT [facility]) OFFICE OUTPATIENT VISIT 01/11/2020 [facility] EN ([facility] 15 MINUTES 12:00:00 AM EDT [facility]) Documentation of current 01/11/2020 [facility] ([facility] medications (procedure) 12:00:00 AM EDT [facility]) Documentation of current 01/11/2020 [facility] ([facility] (procedure) 12:00:00 AM EDT [facility]) OFFICE OUTPATIENT VISIT 01/11/2020 [facility] EN ([facility] 15 MINUTES 12:00:00 AM EDT [facility]) Documentation of current 01/11/2020 [facility] ([facility] (procedure) 12:00:00 AM EDT [facility]) Documentation of current 01/11/2020 [facility] ([facility] medications (procedure) 12:00:00 AM EDT [facility]) OFFICE OUTPATIENT VISIT 01/11/2020 [facility] EN ([facility] 15 MINUTES 12:00:00 AM EDT [facility]) Results ID Date Data Source [id number] 03/11/2020 12:59:00 PM EDT [facility] Name Value Range Interpretation Description Data Sup porting Code Source(s) Document(s ) SARS [facility] coronavirus 2 RNA This lab was ordered by [facility] and reported by [facility]. ID Date Data Source [id number] 02/19/2020 01:38:00 PM EDT [facility] Name Value Range Interpretation Description Data Sup porting Code Source(s) Document(s ) SARS [facility] coronavirus 2 RNA This lab was ordered by [facility] and reported by [facility]. Procedure Social History Code Duration Value Status Description Data Source(s ) Smoking 03/08/2020 - No alcohol - completed - No alcohol - No M [facility]GEN ([facility] 12:00:00 AM EDT No smoking no smoking no [facility]) illicit drugs drugs Smoking 03/08/2020 Unknown if ever completed Unknown if ever [facility] EN ([facility] 12:00:00 AM EDT smoked smoked [facility]) Smoking 02/16/2020 - No alcohol - completed - No alcohol - No M [facility]GEN ([facility] 12:00:00 AM EDT No smoking no smoking no [facility]) illicit drugs drugs Smoking 02/16/2020 Unknown if ever completed Unknown if ever [facility] EN ([facility] 12:00:00 AM EDT smoked smoked [facility]) Smoking 02/16/2020 - No alcohol - completed - No alcohol - No M EDGEN ([facility] 12:00:00 AM EDT No smoking no smoking no [facility]) illicit drugs drugs Smoking 02/16/2020 Unknown if ever completed Unknown if ever [facility]G EN ([facility] 12:00:00 AM EDT smoked smoked [facility]) Smoking 01/12/2020 - No alcohol - completed - No alcohol - No M NAGI ([facility] 12:00:00 AM EDT No smoking no smoking no illi cit [facility]) illicit drugs drugs Smoking 01/12/2020 Unknown if ever completed Unknown if ever [facility] EN ([facility] 12:00:00 AM EDT smoked smoked [facility]) Vital Signs ID Date Data Source UNK Name Value Range Interpretation Code Description Data Source(s) Heart rate 78 /min 78 /min [facility] ([facility] [place]) Respiratory rate 15 /min 15 /min [facility] ( [facility]) Body temperature 98 F 98 F [facility] ( [facility]) Inhaled oxygen 98 % 98 % [facility] ([facility]) Body mass index 34 kg/m2 34 kg/m2 [facility] (S t (BMI) [Ratio] [facility] Diastolic blood 70 mm[Hg] 70 mm[Hg] [facility] (S [facility]) Systolic blood 123 mm[Hg] 123 mm[Hg] [facility] ([facility] [place]) Body weight 174 lb 174 lb [facility] ([facility]) Body height 60 in 60 in [facility] ([facility]) Heart rate 93 /min 93 /min [facility] ([facility]) Respiratory rate 15 /min 15 /min [facility] ( [facility]) Body temperature 98 F 98 F [facility] ( [facility]) Inhaled oxygen 98 % 98 % [facility] ([facility]) Body mass index 34 kg/m2 34 kg/m2 [facility] (S t (BMI) [Ratio] [facility] [place] Diastolic blood 80 mm[Hg] 80 mm[Hg] [facility] [place] Systolic blood 160 mm[Hg] 160 mm[Hg] [facility] ([facility] [place]) Body weight 174 lb 174 lb [facility] Body height 60 in 60 in [facility] ([facility]) Heart rate 93 /min 93 /min [facility] ([facility]) Respiratory rate 15 /min 15 /min [facility] ( [facility]) Body temperature 98 F 98 F [facility] ( [facility]) Inhaled oxygen 98 % 98 % [facility] ([facility]) Body mass index 34 kg/m2 34 kg/m2 [facility] (S t (BMI) [Ratio] [facility] [place] Diastolic blood 80 mm[Hg] 80 mm[Hg] [facility] (S [facility]) Systolic blood 160 mm[Hg] 160 mm[Hg] [facility] ([facility] [place]) Body weight 174 lb 174 lb [facility] ([facility]) Body height 60 in 60 in [facility] ([facility]) Heart rate 93 /min 93 /min [facility] ([facility]) Respiratory rate 15 /min 15 /min [facility] ( [facility]) Body temperature 98 F 98 F [facility] ( [facility]) Inhaled oxygen 98 % 98 % [facility] ([facility]) Body mass index 34 kg/m2 34 kg/m2 [facility] (S t (BMI) [Ratio] [facility] [place] Diastolic blood 80 mm[Hg] 80 mm[Hg] [facility] (S [facility]) Systolic blood 160 mm[Hg] 160 mm[Hg] [facility] ([facility] [place]) Body weight 174 lb 174 lb [facility] ([facility]) Body height 60 in 60 in [facility] ([facility]) Heart rate 75 /min 75 /min [facility] ([facility]) Respiratory rate 15 /min 15 /min [facility] ( [facility]) Body temperature 98 F 98 F [facility] ( [facility]) Inhaled oxygen 98 % 98 % [facility] ([facility]) Body mass index 34 kg/m2 34 kg/m2 [facility] (S t (BMI) [Ratio] [facility] Diastolic blood 70 mm[Hg] 70 mm[Hg] [facility] (S t pressure [facility]) Systolic blood 130 mm[Hg] 130 mm[Hg] [facility] ([facility]) Body weight 174 lb 174 lb [facility] ([facility]) Body height 60 in 60 in [facility] ([facility]) Heart rate 75 /min 75 /min [facility] ([facility]) Respiratory rate 15 /min 15 /min [facility] ( [facility]) Body temperature 98 F 98 F [facility] ( [facility]) Inhaled oxygen 98 % 98 % [facility] ([facility]) Body mass index 34 kg/m2 34 kg/m2 [facility] (S t (BMI) [Ratio] [facility] Diastolic blood 70 mm[Hg] 70 mm[Hg] [facility] (S t pressure [facility]) Systolic blood 130 mm[Hg] 130 mm[Hg] [facility] ([facility]) Body weight 174 lb 174 lb [facility] ([facility]) Body height 60 in 60 in [facility] ([facility]) Heart rate 75 /min 75 /min [facility] ([facility]) Respiratory rate 15 /min 15 /min [facility] ( [facility]) Body temperature 98 F 98 F [facility] ( [facility]) Inhaled oxygen 98 % 98 % [facility] ([facility]) Body mass index 34 kg/m2 34 kg/m2 [facility] (S t (BMI) [Ratio] [facility] [place] Diastolic blood 70 mm[Hg] 70 mm[Hg] [facility] (S t pressure [facility]) Systolic blood 130 mm[Hg] 130 mm[Hg] [facility] ([facility] [place]) Body weight 174 lb 174 lb [facility] ([facility]) Body height 60 in 60 in [facility] ([facility]) Heart rate 75 /min 75 /min [facility] ([facility]) Respiratory rate 15 /min 15 /min [facility] ( [facility]) Body temperature 98 F 98 F [facility] ( [facility]) Inhaled oxygen 98 % 98 % [facility] ([facility], ) Body mass index 34 kg/m2 34 kg/m2 [facility] (S (BMI) [Ratio] [facility] [place] Diastolic blood 70 mm[Hg] 70 mm[Hg] [facility] (S pressure [facility]) Systolic blood 130 mm[Hg] 130 mm[Hg] [facility] ([facility] [place]) Body weight 174 lb 174 lb [facility] ([facility] Body height 60 in 60 in [facility] ([facility])
[2020-03-16] MEDS ORDERED: LIDOCAINE HCL/PF 1% SDV 5ML VIAL ONE ×2 (10:42→10:48)
[2020-03-16] MEDS ORDERED: BUPIVACAINE HCL/PF 0.75% 10 ML VIAL ONE (10:43)
[2020-03-16 12:11] VITALS: TEMP 97.7
[2020-03-16 12:21] VITALS: BP 158/77; PULSE 71
== END 2020-03-16 12:30 | disposition home or self-care (01) ==
LOC: JASU-SURG 04:58
PROVIDERS: ATTEND Pain Medicine Pain Medicine
DX: Z53.8 Procedure and treatment not carried out for other reasons (principal)

== ENCOUNTER 2020-11-21 07:00 | Inpatient (IN) | payer OTHER, MEDICARE ==
[2020-11-21] MEDS ORDERED: SODIUM CHLORIDE 500 ML IV STA ×2 (07:58→10:59)
[2020-11-21] MEDS ORDERED: ONDANSETRON 4 MG/2 ML VIAL IVPUSH ONE ×2 (07:58→10:59)
[2020-11-21] MEDS ORDERED: ACETAMINOPHEN 1000 MG/100 ML VIAL (NON FORMULARY) IVPB ONE (07:59)
[2020-11-21] MEDS ORDERED: ONDANSETRON 4 MG/2 ML VIAL ONE (08:09)
[2020-11-21] MEDS ORDERED: ACETAMINOPHEN INJECTION 100 ML IVPB ONE (08:09)
[2020-11-21 08:20] LABS: BASO % 0.4 % (0-2.0); EOS % 0.5 % (0-4.5); HEMATOCRIT 31.3 % (32.4-45.2); HEMOGLOBIN 10.5 GM/dL (10.7-15.3); LYMPH % 15.8 % (8-40); MCH 29.5 pg (25.7-33.7); MCHC 33.7 g/dl (32.0-36.0); MEAN CELL VOLUME 87.6 fl (80-96); MEAN PLT VOLUME 8.3 fl (7.5-11.1); MONO % 8.1 % (3.8-10.2); NEUT % 75.2 % (42.8-82.8); PLATELET COUNT 194 K/MM3 (134-434); RBC 3.58 M/mm3 (3.60-5.2); RDW 13.6 % (11.6-15.6); WHITE BLOOD COUNT 10.2 K/mm3 (4.0-10.0)
[2020-11-21 08:37] LABS: CHLORIDE 104 mmol/L (98-107); SODIUM 136 mmol/L (136-145)
[2020-11-21 08:40] LABS: ALBUMIN 3.2 g/dl (3.4-5.0); ANION GAP 8 MMOL/L (8-16); BLOOD UREA NITROGEN 20.4 mg/dL (7-18); CO2 24 mmol/L (21-32); GLUCOSE,RANDOM 103 mg/dL (74-106); LIPASE 46 U/L (73-393)
[2020-11-21 08:42] LABS: SGPT/ALT 14 U/L (13-61)
[2020-11-21 08:43] LABS: CREATININE 0.8 mg/dL (0.55-1.3); SGOT/AST 27 U/L (15-37)
[2020-11-21 08:44] LABS: BILIRUBIN,TOTAL 0.4 mg/dL (0.2-1); TOT PROT 6.5 g/dl (6.4-8.2)
[2020-11-21 08:45] LABS: ALK PHOS 75 U/L (45-117)
[2020-11-21] MEDS ORDERED: CEFTRIAXONE 1,000 MG in DEXTROSE 5%-WATER - 50 ML IVPB ONE (11:45)
[2020-11-21] MEDS ORDERED: CEFTRIAXONE 1 GM/50 ML BAG ONE (12:12)
[2020-11-21 17:10] LABS: EPI CELLS 12 /uL (0-25.1); HYALINE CASTS 1 /uL (0-3.1); PH,URINE 5.5 (5.0-8.0); URINE APPEARANCE CLEAR; URINE BACTERIA 21 /uL (0-1359); URINE BILIRUBIN NEGATIVE (NEGATIVE); URINE COLOR YELLOW; URINE GLUCOSE (UA) NEGATIVE (NEGATIVE); URINE KETONE TRACE (NEGATIVE); URINE LEUK ESTERASE TRACE (NEGATIVE); URINE NITRITE NEGATIVE (NEGATIVE); URINE PROTEIN NEGATIVE (NEGATIVE); URINE RBC 26 /uL (0-23.9); URINE UROBILINOGEN 0.2 mg/dL (0.2-1.0); URINE WBC 49 /uL (0-25.8)
[2020-11-21] MEDS ORDERED: oxyCODONE HCL 5 MG TABLET PO ONE (17:17)
[2020-11-21] MEDS ORDERED: oxyCODONE HCL 5 MG TABLET PO PRN (18:04)
[2020-11-21] MEDS: ALBUTEROL SO4 2.5/IPRATROPIUM 0.5 INH SOL 3 ML VIAL.NEB. NEB SCH (21:26)
[2020-11-21] MEDS: SOTALOL HCL 80 MG TABLET (FP) PO SCH (21:28)
[2020-11-21] MEDS: MONTELUKAST NA 10 MG TABLET PO SCH (21:29)
[2020-11-21] MEDS: ATORVASTATIN CA 40 MG TABLET (FP) PO SCH (21:30)
[2020-11-21] MEDS: GABAPENTIN 100 MG CAPSULE PO SCH (21:30)
[2020-11-22] MEDS: oxyCODONE HCL 5 MG TABLET PO PRN ×2 (01:53→18:13)
[2020-11-22] MEDS: ACETAMINOPHEN 325 MG TABLET (FP) PO PRN (05:26)
[2020-11-22] MEDS: ALBUTEROL SO4 2.5/IPRATROPIUM 0.5 INH SOL 3 ML VIAL.NEB. NEB SCH ×3 (06:15→22:15)
[2020-11-22] MEDS ORDERED: ACETAMINOPHEN 1000 MG/100 ML VIAL (NON FORMULARY) IVPB ONE (08:13)
[2020-11-22] MEDS ORDERED: SODIUM CHLORIDE 1,000 ML IV SCH (08:15)
[2020-11-22] MEDS ORDERED: PT OWN MED DRAWER 7, Y5N ONE ×3 (09:03→20:43)
[2020-11-22] MEDS: traMADol HCL 50 MG TABLET PO PRN ×2 (09:09→15:10)
[2020-11-22] MEDS: ASCORBIC ACID 500 MG TABLET (FP) PO SCH (09:12)
[2020-11-22] MEDS: APIXABAN 5 MG TABLET PO SCH ×2 (09:12→21:36)
[2020-11-22] MEDS: FUROSEMIDE 20 MG TABLET (FP) PO SCH (09:12)
[2020-11-22] MEDS: GABAPENTIN 100 MG CAPSULE PO SCH ×2 (09:12→21:35)
[2020-11-22] MEDS: LIDOCAINE 5% TOPICAL PATCH TP SCH (09:13)
[2020-11-22] MEDS: SOTALOL HCL 80 MG TABLET (FP) PO SCH ×2 (09:14→21:36)
[2020-11-22 11:14] LABS: HEMATOCRIT 30.5 % (32.4-45.2); HEMOGLOBIN 10.2 GM/dL (10.7-15.3); MCH 29.5 pg (25.7-33.7); MCHC 33.5 g/dl (32.0-36.0); MEAN PLT VOLUME 8.1 fl (7.5-11.1); PLATELET COUNT 204 K/MM3 (134-434); RBC 3.46 M/mm3 (3.60-5.2); RDW 13.8 % (11.6-15.6); WHITE BLOOD COUNT 6.6 K/mm3 (4.0-10.0)
[2020-11-22 11:48] LABS: ALBUMIN 2.8 g/dl (3.4-5.0); BILIRUBIN,TOTAL 0.3 mg/dL (0.2-1); BLOOD UREA NITROGEN 16.1 mg/dL (7-18); CALCIUM 9.1 mg/dL (8.5-10.1); CREATININE 0.8 mg/dL (0.55-1.3); TOT PROT 5.8 g/dl (6.4-8.2)
[2020-11-22] MEDS: FLUTICASONE/SALMETEROL 100 MCG/50 MCG DISKUS IH SCH (13:51)
[2020-11-22] MEDS: ONDANSETRON 4 MG/2 ML VIAL IVPUSH PRN (19:56)
[2020-11-22] MEDS: ATORVASTATIN CA 40 MG TABLET (FP) PO SCH (21:35)
[2020-11-22] MEDS: MONTELUKAST NA 10 MG TABLET PO SCH (21:36)
[2020-11-22] MEDS: LIDOCAINE PATCH REMOVAL MC SCH (21:37)
[2020-11-23] MEDS: ALBUTEROL SO4 2.5/IPRATROPIUM 0.5 INH SOL 3 ML VIAL.NEB. NEB SCH ×3 (05:46→21:01)
[2020-11-23] MEDS: traMADol HCL 50 MG TABLET PO PRN ×2 (06:59→20:17)
[2020-11-23] MEDS: ONDANSETRON 4 MG/2 ML VIAL IVPUSH PRN ×2 (07:04→07:06)
[2020-11-23 07:31] LABS: BASO % 0.7 % (0-2.0); EOS % 2.9 % (0-4.5); HEMATOCRIT 30.1 % (32.4-45.2); HEMOGLOBIN 10.4 GM/dL (10.7-15.3); LYMPH % 27.2 % (8-40); MCH 29.8 pg (25.7-33.7); MCHC 34.6 g/dl (32.0-36.0); MEAN CELL VOLUME 86.3 fl (80-96); MEAN PLT VOLUME 7.9 fl (7.5-11.1); MONO % 9.7 % (3.8-10.2); NEUT % 59.5 % (42.8-82.8); PLATELET COUNT 202 K/MM3 (134-434); RBC 3.49 M/mm3 (3.60-5.2); RDW 13.8 % (11.6-15.6); WHITE BLOOD COUNT 5.7 K/mm3 (4.0-10.0)
[2020-11-23] MEDS ORDERED: FERRIC CARBOXYMALTOSE 750 MG in SODIUM CHLORIDE 250 ML IVPB ONE (09:30)
[2020-11-23] MEDS ORDERED: PT OWN MED DRAWER 7, Y5N ONE ×2 (10:34→19:55)
[2020-11-23] MEDS: LIDOCAINE 5% TOPICAL PATCH TP SCH (10:41)
[2020-11-23] MEDS: GABAPENTIN 100 MG CAPSULE PO SCH ×2 (10:41→21:17)
[2020-11-23] MEDS: ASCORBIC ACID 500 MG TABLET (FP) PO SCH (10:41)
[2020-11-23] MEDS: FUROSEMIDE 20 MG TABLET (FP) PO SCH (10:42)
[2020-11-23] MEDS: SOTALOL HCL 80 MG TABLET (FP) PO SCH ×2 (10:42→21:18)
[2020-11-23] MEDS: APIXABAN 5 MG TABLET PO SCH ×2 (10:42→21:17)
[2020-11-23] MEDS: FLUTICASONE/SALMETEROL 100 MCG/50 MCG DISKUS IH SCH (10:43)
[2020-11-23 11:24] LABS: EPI CELLS 17 /uL (0-25.1); HYALINE CASTS 1 /uL (0-3.1); PH,URINE 5.5 (5.0-8.0); URINE APPEARANCE CLEAR; URINE BACTERIA 11 /uL (0-1359); URINE BILIRUBIN NEGATIVE (NEGATIVE); URINE COLOR YELLOW; URINE GLUCOSE (UA) NEGATIVE (NEGATIVE); URINE KETONE 1+ (NEGATIVE); URINE LEUK ESTERASE 1+ (NEGATIVE); URINE NITRITE NEGATIVE (NEGATIVE); URINE PROTEIN NEGATIVE (NEGATIVE); URINE RBC 10 /uL (0-23.9); URINE UROBILINOGEN 0.2 mg/dL (0.2-1.0); URINE WBC 45 /uL (0-25.8)
[2020-11-23] MEDS: FUROSEMIDE 40 MG/4 ML INJECTABLE VIAL IVPUSH SCH (14:01)
[2020-11-23] MEDS: ATORVASTATIN CA 40 MG TABLET (FP) PO SCH (21:16)
[2020-11-23] MEDS: MONTELUKAST NA 10 MG TABLET PO SCH (21:17)
[2020-11-23] MEDS: LIDOCAINE PATCH REMOVAL MC SCH (21:21)
[2020-11-23] MEDS: ACETAMINOPHEN 325 MG TABLET (FP) PO PRN (21:42)
[2020-11-24] MEDS ORDERED: LORATADINE 10 MG TABLET PO ONE (00:38)
[2020-11-24] MEDS: ALBUTEROL SO4 2.5/IPRATROPIUM 0.5 INH SOL 3 ML VIAL.NEB. NEB SCH ×3 (06:05→21:01)
[2020-11-24] MEDS: traMADol HCL 50 MG TABLET PO PRN ×2 (06:15→16:32)
[2020-11-24] MEDS: ONDANSETRON 4 MG/2 ML VIAL IVPUSH PRN (08:14)
[2020-11-24 08:48] LABS: HEMATOCRIT 31.7 % (32.4-45.2); HEMOGLOBIN 10.6 GM/dL (10.7-15.3); MCH 28.9 pg (25.7-33.7); MCHC 33.4 g/dl (32.0-36.0); MEAN CELL VOLUME 86.6 fl (80-96); MEAN PLT VOLUME 7.8 fl (7.5-11.1); PLATELET COUNT 227 K/MM3 (134-434); RBC 3.66 M/mm3 (3.60-5.2); RDW 13.3 % (11.6-15.6); WHITE BLOOD COUNT 5.1 K/mm3 (4.0-10.0)
[2020-11-24 09:11] LABS: CALCIUM 9.2 mg/dL (8.5-10.1)
[2020-11-24 09:12] LABS: BLOOD UREA NITROGEN 12.5 mg/dL (7-18); MAGNESIUM 1.4 mg/dL (1.8-2.4)
[2020-11-24 09:15] LABS: CREATININE 0.7 mg/dL (0.55-1.3)
[2020-11-24] MEDS ORDERED: MAGNESIUM SULF 50% (8.12 MEQ/2 ML-1 GM VIAL) IVPB ONE (09:40)
[2020-11-24] MEDS: FLUTICASONE PROP 0.05% 16 GM NASAL SPRAY NS SCH (09:55)
[2020-11-24] MEDS: FUROSEMIDE 40 MG/4 ML INJECTABLE VIAL IVPUSH SCH (09:55)
[2020-11-24] MEDS: LIDOCAINE 5% TOPICAL PATCH TP SCH (09:56)
[2020-11-24] MEDS: FLUTICASONE/SALMETEROL 100 MCG/50 MCG DISKUS IH SCH (09:56)
[2020-11-24] MEDS: ASCORBIC ACID 500 MG TABLET (FP) PO SCH (09:57)
[2020-11-24] MEDS: GABAPENTIN 100 MG CAPSULE PO SCH ×2 (09:57→21:07)
[2020-11-24] MEDS: SOTALOL HCL 80 MG TABLET (FP) PO SCH ×2 (09:59→21:07)
[2020-11-24] MEDS: APIXABAN 5 MG TABLET PO SCH ×2 (09:59→21:07)
[2020-11-24] MEDS: LORATADINE 10 MG TABLET PO SCH (10:00)
[2020-11-24] MEDS ORDERED: PT OWN MED DRAWER 7, Y5N ONE (20:40)
[2020-11-24] MEDS: ACETAMINOPHEN 325 MG TABLET (FP) PO PRN (20:49)
[2020-11-24] MEDS: MONTELUKAST NA 10 MG TABLET PO SCH (21:07)
[2020-11-24] MEDS: ATORVASTATIN CA 40 MG TABLET (FP) PO SCH (21:07)
[2020-11-24] MEDS: LIDOCAINE PATCH REMOVAL MC SCH (21:10)
[2020-11-25] MEDS: traMADol HCL 50 MG TABLET PO PRN ×2 (00:51→14:24)
[2020-11-25] MEDS: ALBUTEROL SO4 2.5/IPRATROPIUM 0.5 INH SOL 3 ML VIAL.NEB. NEB SCH ×2 (06:05→14:50)
[2020-11-25] MEDS: LIDOCAINE 5% TOPICAL PATCH TP SCH (09:59)
[2020-11-25] MEDS: FLUTICASONE/SALMETEROL 100 MCG/50 MCG DISKUS IH SCH (10:00)
[2020-11-25] MEDS: SOTALOL HCL 80 MG TABLET (FP) PO SCH (10:00)
[2020-11-25] MEDS: LORATADINE 10 MG TABLET PO SCH (10:01)
[2020-11-25] MEDS: APIXABAN 5 MG TABLET PO SCH (10:02)
[2020-11-25] MEDS: ASCORBIC ACID 500 MG TABLET (FP) PO SCH (10:02)
[2020-11-25] MEDS: GABAPENTIN 100 MG CAPSULE PO SCH (10:03)
[2020-11-25] MEDS: FLUTICASONE PROP 0.05% 16 GM NASAL SPRAY NS SCH (10:04)
[2020-11-25] MEDS: FUROSEMIDE 40 MG/4 ML INJECTABLE VIAL IVPUSH SCH (10:04)
[2020-11-25] MEDS: ONDANSETRON 4 MG/2 ML VIAL IVPUSH PRN (10:43)
[2020-11-25 14:27] VITALS: BP 146/73; PULSE 63; TEMP 98.5
[2020-11-25 18:57] VITALS: BMI 30.3
== END 2020-11-25 16:06 | disposition home or self-care (01) | DRG 690 ==
LOC: JER 07:00 → JERBED 13:18 → J8W 14:59
PROVIDERS: ADMIT Family Medicine; ATTEND Family Medicine
DX: N39.0 Urinary tract infection, site not specified (principal); J98.11 Atelectasis; I13.0 Hypertensive heart and chronic kidney disease with heart failure and stage 1 through stage 4 chronic kidney disease, or unspecified chronic kidney disease; E78.5 Hyperlipidemia, unspecified; J44.9 Chronic obstructive pulmonary disease, unspecified; E11.22 Type 2 diabetes mellitus with diabetic chronic kidney disease; N18.9 Chronic kidney disease, unspecified; I25.10 Atherosclerotic heart disease of native coronary artery without angina pectoris; I48.0 Paroxysmal atrial fibrillation; K21.9 Gastro-esophageal reflux disease without esophagitis; E78.00 Pure hypercholesterolemia, unspecified; K80.20 Calculus of gallbladder without cholecystitis without obstruction; D50.9 Iron deficiency anemia, unspecified; R11.0 Nausea; B95.2 Enterococcus as the cause of diseases classified elsewhere; K59.09 Other constipation; Z87.11 Personal history of peptic ulcer disease; M54.5 Low back pain; M85.80 Other specified disorders of bone density and structure, unspecified site; M17.10 Unilateral primary osteoarthritis, unspecified knee; I27.20 Pulmonary hypertension, unspecified; M51.36 Other intervertebral disc degeneration, lumbar region; M48.061 Spinal stenosis, lumbar region without neurogenic claudication; J32.9 Chronic sinusitis, unspecified; I50.9 Heart failure, unspecified
CPT/HCPCS: 36415; 71045-TC-FY; 71250-TC; 72100-TC-FY; 76705-TC; 80048; 80053; 81003; 82550; 82728; 83540; 83550; 83690; 83735; 83880; 84484; 85025; 85027; 86140; 87086; 87186; 93005; 93010; 93306-TC; 94010; 94640; 97116-GP; 97161-GP; 99285-25; C9803; J0131; J1439; U0003; U0005

== ENCOUNTER 2020-12-11 11:37 | Observation (INO) | payer OTHER, MEDICARE ==
[2020-12-11 13:53] LABS: BASO % 0.3 % (0-2.0); EOS % 0.9 % (0-4.5); HEMOGLOBIN 10.8 GM/dL (10.7-15.3); LYMPH % 20.3 % (8-40); MCH 29.7 pg (25.7-33.7); MCHC 33.8 g/dl (32.0-36.0); MEAN CELL VOLUME 87.9 fl (80-96); MEAN PLT VOLUME 7.4 fl (7.5-11.1); MONO % 8.5 % (3.8-10.2); PLATELET COUNT 242 10^3/uL (134-434); RBC 3.64 M/mm3 (3.60-5.2); RDW 14.9 % (11.6-15.6); WHITE BLOOD COUNT 8.6 K/mm3 (4.0-10.0)
[2020-12-11] MEDS ORDERED: ACETAMINOPHEN 1000 MG/100 ML VIAL (NON FORMULARY) IVPB ONE (14:07)
[2020-12-11 14:08] LABS: CHLORIDE 100 mmol/L (98-107); EPI CELLS 33 /uL (0-25.1); HYALINE CASTS 2 /uL (0-3.1); PH,URINE 5.5 (5.0-8.0); SODIUM 133 mmol/L (136-145); URINE APPEARANCE CLEAR; URINE BACTERIA 35 /uL (0-1359); URINE BILIRUBIN NEGATIVE (NEGATIVE); URINE COLOR YELLOW; URINE GLUCOSE (UA) NEGATIVE (NEGATIVE); URINE KETONE NEGATIVE (NEGATIVE); URINE LEUK ESTERASE 1+ (NEGATIVE); URINE NITRITE NEGATIVE (NEGATIVE); URINE PROTEIN NEGATIVE (NEGATIVE); URINE RBC 28 /uL (0-23.9); URINE UROBILINOGEN 0.2 mg/dL (0.2-1.0); URINE WBC 83 /uL (0-25.8)
[2020-12-11 14:11] LABS: ALBUMIN 3.5 g/dl (3.4-5.0); ANION GAP 6 MMOL/L (8-16); CO2 26 mmol/L (21-32); GLUCOSE,RANDOM 111 mg/dL (74-106); LIPASE 57 U/L (73-393)
[2020-12-11 14:13] LABS: SGPT/ALT 18 U/L (13-61)
[2020-12-11 14:14] LABS: SGOT/AST 18 U/L (15-37)
[2020-12-11 14:15] LABS: BILIRUBIN,TOTAL 0.4 mg/dL (0.2-1); TOT PROT 6.6 g/dl (6.4-8.2)
[2020-12-11 14:16] LABS: ALK PHOS 125 U/L (45-117)
[2020-12-11 14:23] LABS: BLOOD UREA NITROGEN 22.9 mg/dL (7-18)
[2020-12-11] MEDS ORDERED: ACETAMINOPHEN INJECTION 100 ML IVPB ONE (14:31)
[2020-12-11] MEDS ORDERED: FUROSEMIDE 40 MG/4 ML INJECTABLE VIAL IVPUSH ONE (14:35)
[2020-12-11] MEDS ORDERED: CEFTRIAXONE 1 GM in DEXTROSE 5%-WATER - 100 ML IVPB ONE (14:35)
[2020-12-11] MEDS ORDERED: FUROSEMIDE 40 MG/4 ML INJECTABLE VIAL ONE (14:41)
[2020-12-11] MEDS ORDERED: CEFTRIAXONE 1 GM/50 ML BAG ONE (14:41)
[2020-12-11] MEDS: PANTOPRAZOLE SODIUM 40 MG VIAL IVPUSH SCH (20:07)
[2020-12-11 20:36] VITALS: BMI 28.3
[2020-12-11] MEDS ORDERED: SOTALOL HCL 80 MG TABLET (FP) PO SCH (22:00)
[2020-12-11] MEDS: MONTELUKAST NA 10 MG TABLET PO SCH (22:27)
[2020-12-11] MEDS: APIXABAN 5 MG TABLET PO SCH (22:27)
[2020-12-11] MEDS: GABAPENTIN 100 MG CAPSULE PO SCH (22:27)
[2020-12-11] MEDS ORDERED: PT OWN MED DRAWER 7, Y5N ONE (23:12)
[2020-12-11] MEDS: ACETAMINOPHEN 325 MG TABLET (FP) PO PRN (23:52)
[2020-12-12] MEDS: GABAPENTIN 100 MG CAPSULE PO SCH ×3 (05:31→22:25)
[2020-12-12 09:08] LABS: HEMATOCRIT 33.4 % (32.4-45.2); MCHC 32.8 g/dl (32.0-36.0); MEAN CELL VOLUME 88.4 fl (80-96); MEAN PLT VOLUME 7.8 fl (7.5-11.1); PLATELET COUNT 244 10^3/uL (134-434); RBC 3.78 M/mm3 (3.60-5.2); RDW 14.5 % (11.6-15.6); WHITE BLOOD COUNT 5.5 K/mm3 (4.0-10.0)
[2020-12-12 09:26] LABS: ALBUMIN 3.1 g/dl (3.4-5.0); BLOOD UREA NITROGEN 18.6 mg/dL (7-18)
[2020-12-12] MEDS ORDERED: PT OWN MED DRAWER 7, Y5N ONE ×3 (09:28→22:03)
[2020-12-12] MEDS ORDERED: cefTRIAXone SODIUM 1 GM VIAL ONE (09:28)
[2020-12-12 09:29] LABS: CREATININE 0.8 mg/dL (0.55-1.3)
[2020-12-12] MEDS ORDERED: DEXTROSE 5%-WATER - 50 ML IVPB ONE (09:29)
[2020-12-12 09:30] LABS: BILIRUBIN,TOTAL 0.3 mg/dL (0.2-1); TOT PROT 6.1 g/dl (6.4-8.2)
[2020-12-12] MEDS: ACETAMINOPHEN 325 MG TABLET (FP) PO PRN ×3 (09:42→22:36)
[2020-12-12] MEDS: LOSARTAN POTASSIUM 25 MG TABLET PO SCH (09:44)
[2020-12-12] MEDS: FUROSEMIDE 40 MG/4 ML INJECTABLE VIAL IVPUSH SCH (09:44)
[2020-12-12] MEDS: APIXABAN 5 MG TABLET PO SCH ×2 (09:44→22:25)
[2020-12-12] MEDS: FLUTICASONE PROP 0.05% 16 GM NASAL SPRAY NS SCH (09:45)
[2020-12-12] MEDS: LIDOCAINE 5% TOPICAL PATCH TP SCH (09:47)
[2020-12-12] MEDS ORDERED: CEFTRIAXONE 1 GM in DEXTROSE 5%-WATER - 50 ML IVPB SCH (10:00)
[2020-12-12] MEDS: PANTOPRAZOLE SODIUM 40 MG VIAL IVPUSH SCH (10:08)
[2020-12-12] MEDS: SOTALOL HCL 80 MG TABLET (FP) PO SCH (12:10)
[2020-12-12] MEDS: POLYETHYLENE GLYCOL (HEALTHYLAX) 3350 17 GM PACKET PO SCH ×2 (13:31→22:33)
[2020-12-12] MEDS ORDERED: IBUPROFEN 400 MG TABLET (FP) PO ONE (13:55)
[2020-12-12] MEDS: MONTELUKAST NA 10 MG TABLET PO SCH (22:25)
[2020-12-12] MEDS: LIDOCAINE PATCH REMOVAL MC SCH (22:38)
[2020-12-13] MEDS: POLYETHYLENE GLYCOL (HEALTHYLAX) 3350 17 GM PACKET PO SCH (06:21)
[2020-12-13] MEDS: GABAPENTIN 100 MG CAPSULE PO SCH ×3 (06:40→21:33)
[2020-12-13] MEDS ORDERED: ONDANSETRON 4 MG/2 ML VIAL IVPB PRN ×2 (09:29→09:54)
[2020-12-13] MEDS ORDERED: PT OWN MED DRAWER 7, Y5N ONE ×3 (09:32→21:29)
[2020-12-13] MEDS: LIDOCAINE 5% TOPICAL PATCH TP SCH (09:40)
[2020-12-13] MEDS: FUROSEMIDE 40 MG/4 ML INJECTABLE VIAL IVPUSH SCH (09:41)
[2020-12-13] MEDS: PANTOPRAZOLE SODIUM 40 MG VIAL IVPUSH SCH (09:41)
[2020-12-13] MEDS: FLUTICASONE PROP 0.05% 16 GM NASAL SPRAY NS SCH (09:41)
[2020-12-13] MEDS: LOSARTAN POTASSIUM 25 MG TABLET PO SCH (10:27)
[2020-12-13] MEDS: APIXABAN 5 MG TABLET PO SCH ×2 (10:27→21:33)
[2020-12-13] MEDS: SOTALOL HCL 80 MG TABLET (FP) PO SCH (10:27)
[2020-12-13] MEDS: ACETAMINOPHEN 325 MG TABLET (FP) PO PRN ×2 (10:41→18:29)
[2020-12-13] MEDS ORDERED: guaiFENesin/CODEINE 10 ML UNIT-DOSE CUPS PO PRN (10:52)
[2020-12-13] MEDS: MONTELUKAST NA 10 MG TABLET PO SCH (21:33)
[2020-12-13] MEDS: LIDOCAINE PATCH REMOVAL MC SCH (21:34)
[2020-12-14] MEDS: ACETAMINOPHEN 325 MG TABLET (FP) PO PRN ×2 (00:36→06:17)
[2020-12-14] MEDS: GABAPENTIN 100 MG CAPSULE PO SCH ×2 (06:18→13:25)
[2020-12-14 07:47] LABS: CALCIUM 8.7 mg/dL (8.5-10.1)
[2020-12-14 07:48] LABS: BLOOD UREA NITROGEN 24.5 mg/dL (7-18)
[2020-12-14 07:51] LABS: CREATININE 1.2 mg/dL (0.55-1.3)
[2020-12-14] MEDS ORDERED: POLYETHYLENE GLYCOL (HEALTHYLAX) 3350 17 GM PACKET PO SCH (10:00)
[2020-12-14] MEDS ORDERED: PANTOPRAZOLE 40 MG TABLET PO SCH (10:00)
[2020-12-14] MEDS ORDERED: PT OWN MED DRAWER 7, Y5N ONE (10:41)
[2020-12-14] MEDS: LOSARTAN POTASSIUM 25 MG TABLET PO SCH (10:42)
[2020-12-14] MEDS: SOTALOL HCL 80 MG TABLET (FP) PO SCH (10:42)
[2020-12-14] MEDS: LIDOCAINE 5% TOPICAL PATCH TP SCH (10:42)
[2020-12-14] MEDS: FLUTICASONE PROP 0.05% 16 GM NASAL SPRAY NS SCH (10:43)
[2020-12-14] MEDS: APIXABAN 5 MG TABLET PO SCH (10:43)
[2020-12-14] MEDS ORDERED: FUROSEMIDE 20 MG TABLET (FP) PO SCH (13:15)
[2020-12-14 14:18] VITALS: BP 125/73; PULSE 62; TEMP 98.3
== END 2020-12-14 15:43 | disposition home or self-care (01) ==
LOC: JER 11:37 → JERBED 14:43 → J6S 18:46
PROVIDERS: ADMIT Family Medicine; ATTEND Family Medicine
PROC: 3E023GC Introduction of Other Therapeutic Substance into Muscle, Percutaneous Approach (ICD-10-PCS; principal; 2020-12-11)
PROC: 3E03329 Introduction of Other Anti-infective into Peripheral Vein, Percutaneous Approach (ICD-10-PCS; 2020-12-11)
PROC: 3E033NZ Introduction of Analgesics, Hypnotics, Sedatives into Peripheral Vein, Percutaneous Approach (ICD-10-PCS; 2020-12-11)
DX: I48.0 Paroxysmal atrial fibrillation (principal); I50.30 Unspecified diastolic (congestive) heart failure; I25.10 Atherosclerotic heart disease of native coronary artery without angina pectoris; D64.9 Anemia, unspecified; N18.9 Chronic kidney disease, unspecified; M54.9 Dorsalgia, unspecified; K59.00 Constipation, unspecified; K21.9 Gastro-esophageal reflux disease without esophagitis; K92.2 Gastrointestinal hemorrhage, unspecified; J44.9 Chronic obstructive pulmonary disease, unspecified; G89.29 Other chronic pain; M54.5 Low back pain; M19.90 Unspecified osteoarthritis, unspecified site; Z79.01 Long term (current) use of anticoagulants; Z91.81 History of falling; I34.1 Nonrheumatic mitral (valve) prolapse; Z98.49 Cataract extraction status, unspecified eye; R82.71 Bacteriuria; E11.21 Type 2 diabetes mellitus with diabetic nephropathy; R06.09 Other forms of dyspnea; K80.20 Calculus of gallbladder without cholecystitis without obstruction; E78.5 Hyperlipidemia, unspecified; R05 Cough; R11.2 Nausea with vomiting, unspecified; Z91.013 Allergy to seafood
CPT/HCPCS: 36415; 70450-TC; 71045-TC-FY; 72148-TC; 74018-TC-FY; 74177-TC; 74240-TC-FY; 80048; 80053; 81003; 82550; 82962; 83690; 83880; 83935; 84484; 85025; 85027; 87086; 93005; 93010; 96365; 96375; 99285-25; C9803; G0378; J0131; Q9967; U0003; U0005

== ENCOUNTER 2021-02-08 04:09 | Day surgery (SDC) | payer OTHER, MEDICARE ==
[2021-02-06 11:52] VITALS: BMI 31.1
[2021-02-08] MEDS ORDERED: LIDOCAINE HCL/PF 1% SDV 5ML VIAL ONE (07:26)
[2021-02-08] MEDS ORDERED: BUPIVACAINE HCL/PF 0.75% 10 ML VIAL ONE (07:26)
[2021-02-08] MEDS ORDERED: IOHEXOL 180 MG/1 ML ML IJ ONE (10:49)
[2021-02-08] MEDS ORDERED: BUPIVACAINE HCL/PF 0.75% 10 ML VIAL NR ONE (10:50)
[2021-02-08 12:07] VITALS: BP 160/72; PULSE 72; TEMP 97.1
== END 2021-02-08 12:08 | disposition home or self-care (01) ==
LOC: JASU-SURG 04:09
PROVIDERS: ATTEND Pain Medicine Pain Medicine
PROC: BR15YZZ Fluoroscopy of Thoracic Facet Joint(s) using Other Contrast (ICD-10-PCS; 2021-02-08)
PROC: 3E0T3BZ Introduction of Anesthetic Agent into Peripheral Nerves and Plexi, Percutaneous Approach (ICD-10-PCS; principal; 2021-02-08 09:30)
DX: M47.814 Spondylosis without myelopathy or radiculopathy, thoracic region (principal)
CPT/HCPCS: 76000-TC-FY

== ENCOUNTER 2021-03-12 04:43 | Day surgery (SDC) | payer OTHER, MEDICARE ==
[2021-03-11 15:42] VITALS: BMI 31.1
[2021-03-12] MEDS ORDERED: BUPIVACAINE HCL/PF 0.75% 10 ML VIAL NR ONE (09:57)
[2021-03-12] MEDS ORDERED: IOHEXOL 180 MG/1 ML ML IJ ONE (09:58)
[2021-03-12] MEDS ORDERED: LIDOCAINE HCL 1% PRESERVATIVE FREE - 30ML VIAL IJ ONE (09:59)
[2021-03-12 12:08] VITALS: BP 140/70; PULSE 70; TEMP 98
== END 2021-03-12 11:20 | disposition home or self-care (01) ==
LOC: JASU-SURG 04:43
PROVIDERS: ATTEND Pain Medicine Pain Medicine
PROC: BR15YZZ Fluoroscopy of Thoracic Facet Joint(s) using Other Contrast (ICD-10-PCS; 2021-03-12)
PROC: 3E0T3BZ Introduction of Anesthetic Agent into Peripheral Nerves and Plexi, Percutaneous Approach (ICD-10-PCS; principal; 2021-03-12 08:45)
DX: M47.814 Spondylosis without myelopathy or radiculopathy, thoracic region (principal); I10 Essential (primary) hypertension
CPT/HCPCS: 76000-TC-FY

== ENCOUNTER 2021-06-21 04:24 | Day surgery (SDC) | payer OTHER, MEDICARE ==
[2021-06-21] MEDS ORDERED: LIDOCAINE 1% P/F 10 MG/ML VIAL INF ONE (11:17)
[2021-06-21] MEDS ORDERED: IOHEXOL 180 MG/1 ML ML IJ ONE (11:17)
[2021-06-21] MEDS ORDERED: BUPIVACAINE HCL/PF 0.75% 10 ML VIAL NR ONE (11:17)
[2021-06-21 12:25] VITALS: BP 146/59; PULSE 67; TEMP 98.8
== END 2021-06-21 12:35 | disposition home or self-care (01) ==
LOC: JASU-SURG 04:24
PROVIDERS: ATTEND Pain Medicine Pain Medicine
PROC: 3E0T33Z Introduction of Anti-inflammatory into Peripheral Nerves and Plexi, Percutaneous Approach (ICD-10-PCS; 2021-06-21)
PROC: 3E0T3BZ Introduction of Anesthetic Agent into Peripheral Nerves and Plexi, Percutaneous Approach (ICD-10-PCS; principal; 2021-06-21 09:30)
DX: M47.816 Spondylosis without myelopathy or radiculopathy, lumbar region (principal)
CPT/HCPCS: 76000-TC-FY

== ENCOUNTER 2021-07-12 04:10 | Day surgery (SDC) | payer OTHER, MEDICARE ==
[2021-07-11 09:51] VITALS: BMI 29.6
[2021-07-12] MEDS ORDERED: DEXAMETHASONE SOD PHOSPHATE 10 MG/1 ML VIAL ONE (07:21)
[2021-07-12] MEDS ORDERED: LIDOCAINE HCL/PF 1% SDV 5ML VIAL ONE (07:21)
[2021-07-12] MEDS ORDERED: BUPIVACAINE HCL/PF 0.75% 10 ML VIAL ONE (07:21)
[2021-07-12] MEDS ORDERED: LIDOCAINE HCL 1% PRESERVATIVE FREE - 30ML VIAL IJ ONE (11:39)
[2021-07-12] MEDS ORDERED: IOHEXOL 180 MG/1 ML ML IJ ONE (11:40)
[2021-07-12] MEDS ORDERED: LIDOCAINE HCL/PF 2% SDV 5ML VIAL INF ONE (11:41)
[2021-07-12] MEDS ORDERED: BUPIVACAINE HCL/PF 0.75% 10 ML VIAL NR ONE (12:09)
[2021-07-12] MEDS ORDERED: DEXAMETHASONE SOD PHOSPHATE 10 MG/1 ML VIAL IVPUSH ONE (12:11)
[2021-07-12 12:41] VITALS: BP 149/70; PULSE 77; TEMP 98.8
== END 2021-07-12 13:15 | disposition home or self-care (01) ==
LOC: JASU-SURG 04:10
PROVIDERS: ATTEND Pain Medicine Pain Medicine
PROC: 3E0T3TZ Introduction of Destructive Agent into Peripheral Nerves and Plexi, Percutaneous Approach (ICD-10-PCS; principal; 2021-07-12 11:00)
DX: M47.814 Spondylosis without myelopathy or radiculopathy, thoracic region (principal)
CPT/HCPCS: 76000-TC-FY; J1100

== ENCOUNTER 2021-08-02 04:16 | Day surgery (SDC) | payer OTHER, MEDICARE ==
[2021-07-31 10:14] VITALS: BMI 29.6
[~2021-08-02 04:16] MED LIST changes: +BUPIVACAINE HCL/PF 0.75% 10 ML VIAL NR ONE; -LIDOCAINE HCL 1% PRESERVATIVE FREE - 30ML VIAL NR ONE; +LIDOCAINE HCL/PF 2% SDV 5ML VIAL INF ONE
[2021-08-02] MEDS ORDERED: LIDOCAINE HCL/PF 2% SDV 5ML VIAL ONE (07:50)
[2021-08-02] MEDS ORDERED: DEXAMETHASONE SOD PHOSPHATE 10 MG/1 ML VIAL ONE (11:04)
[2021-08-02] MEDS ORDERED: LIDOCAINE HCL 1% PRESERVATIVE FREE - 30ML VIAL IJ ONE (11:08)
[2021-08-02] MEDS ORDERED: LIDOCAINE HCL/PF 2% SDV 5ML VIAL INF ONE (11:36)
[2021-08-02] MEDS ORDERED: BUPIVACAINE HCL/PF 0.75% 10 ML VIAL NR ONE (11:36)
[2021-08-02] MEDS ORDERED: DEXAMETHASONE SOD PHOSPHATE 10 MG/1 ML VIAL IVPUSH ONE (11:36)
[2021-08-02] MEDS ORDERED: IOHEXOL 180 MG/1 ML ML IJ ONE (11:36)
[2021-08-02 12:54] VITALS: BP 157/67; PULSE 72; TEMP 98
[2021-08-02] MEDS ORDERED: BUPIVACAINE HCL/PF 0.75% 10 ML VIAL ONE (13:28)
[2021-08-02] MEDS ORDERED: LIDOCAINE HCL/PF 1% SDV 5ML VIAL ONE (13:28)
== END 2021-08-02 12:47 | disposition home or self-care (01) ==
LOC: JASU-SURG 04:16
PROVIDERS: ATTEND Pain Medicine Pain Medicine
PROC: 3E0T3TZ Introduction of Destructive Agent into Peripheral Nerves and Plexi, Percutaneous Approach (ICD-10-PCS; principal; 2021-08-02 10:30)
DX: M47.814 Spondylosis without myelopathy or radiculopathy, thoracic region (principal)
CPT/HCPCS: 76000-TC-FY; J1100

== ENCOUNTER 2021-08-30 04:16 | Day surgery (SDC) | payer OTHER, MEDICARE ==
[2021-08-26 14:23] VITALS: BMI 29.6
[2021-08-30] MEDS ORDERED: LIDOCAINE HCL/PF 1% SDV 5ML VIAL ONE (07:19)
[2021-08-30] MEDS ORDERED: BUPIVACAINE HCL/PF 0.75% 10 ML VIAL ONE (07:19)
[2021-08-30] MEDS ORDERED: LIDOCAINE HCL 1% PRESERVATIVE FREE - 30ML VIAL IJ ONE ×3 (07:31→09:09)
[2021-08-30] MEDS ORDERED: BUPIVACAINE HCL/PF 0.75% 10 ML VIAL NR ONE ×3 (07:34→09:10)
[2021-08-30] MEDS ORDERED: IOHEXOL 180 MG/1 ML ML IJ ONE ×3 (07:35→09:11)
[2021-08-30 09:43] VITALS: BP 150/69; PULSE 70; TEMP 97.7
== END 2021-08-30 12:28 | disposition home or self-care (01) ==
LOC: JASU-SURG 04:16
PROVIDERS: ATTEND Pain Medicine Pain Medicine
PROC: BR16YZZ Fluoroscopy of Lumbar Facet Joint(s) using Other Contrast (ICD-10-PCS; 2021-08-30)
PROC: 3E0T3BZ Introduction of Anesthetic Agent into Peripheral Nerves and Plexi, Percutaneous Approach (ICD-10-PCS; principal; 2021-08-30 08:30)
DX: M47.816 Spondylosis without myelopathy or radiculopathy, lumbar region (principal); I10 Essential (primary) hypertension; I48.91 Unspecified atrial fibrillation
CPT/HCPCS: 76000-TC-FY

== ENCOUNTER 2021-09-27 04:12 | Day surgery (SDC) | payer OTHER, MEDICARE ==
[2021-09-23 17:21] VITALS: BMI 29.6
[2021-09-27] MEDS ORDERED: BUPIVACAINE HCL/PF 0.75% 10 ML VIAL ONE (07:13)
[2021-09-27] MEDS ORDERED: LIDOCAINE HCL/PF 1% SDV 5ML VIAL ONE (07:13)
[2021-09-27] MEDS ORDERED: DEXAMETHASONE SOD PHOSPHATE 10 MG/1 ML VIAL ONE (07:33)
[2021-09-27] MEDS ORDERED: LIDOCAINE HCL/PF 2% SDV 5ML VIAL ONE ×2 (07:52→10:35)
[2021-09-27] MEDS ORDERED: LIDOCAINE HCL 1% PRESERVATIVE FREE - 30ML VIAL IJ ONE (10:37)
[2021-09-27] MEDS ORDERED: LIDOCAINE HCL 2% (50ML VIAL) SQ ONE (10:38)
[2021-09-27] MEDS ORDERED: BUPIVACAINE HCL/PF 0.75% 10 ML VIAL MM ONE (10:38)
[2021-09-27 11:37] VITALS: PULSE 74; TEMP 98.2
[2021-09-27 12:10] VITALS: BP 170/75
== END 2021-09-27 12:15 | disposition home or self-care (01) ==
LOC: JASU-SURG 04:12
PROVIDERS: ATTEND Pain Medicine Pain Medicine
PROC: 3E0T3TZ Introduction of Destructive Agent into Peripheral Nerves and Plexi, Percutaneous Approach (ICD-10-PCS; principal; 2021-09-27 10:30)
PROC: BR16YZZ Fluoroscopy of Lumbar Facet Joint(s) using Other Contrast (ICD-10-PCS; 2021-09-27 10:30)
DX: M47.816 Spondylosis without myelopathy or radiculopathy, lumbar region (principal); I10 Essential (primary) hypertension; I48.91 Unspecified atrial fibrillation
CPT/HCPCS: 76000-TC-FY; J1100

== ENCOUNTER 2021-11-15 04:14 | Day surgery (SDC) | payer OTHER, MEDICARE ==
[2021-11-12 17:13] VITALS: BMI 29.6
[2021-11-15] MEDS ORDERED: LIDOCAINE HCL/PF 1% SDV 5ML VIAL ONE (07:41)
[2021-11-15] MEDS ORDERED: BUPIVACAINE HCL/PF 0.75% 10 ML VIAL ONE (07:41)
[2021-11-15] MEDS ORDERED: LIDOCAINE HCL/PF 2% SDV 5ML VIAL INF ONE ×2 (11:10)
[2021-11-15] MEDS ORDERED: LIDOCAINE HCL 1% PRESERVATIVE FREE - 30ML VIAL IJ ONE (11:11)
[2021-11-15] MEDS ORDERED: BUPIVACAINE HCL/PF 0.75% 10 ML VIAL NR ONE (11:12)
[2021-11-15] MEDS ORDERED: DEXAMETHASONE SOD PHOSPHATE 10 MG/1 ML VIAL IM ONE (11:13)
[2021-11-15] MEDS ORDERED: IOHEXOL 180 MG/1 ML ML IJ ONE (11:14)
[2021-11-15 12:42] VITALS: TEMP 97.9
[2021-11-15 12:54] VITALS: BP 150/66; PULSE 68
== END 2021-11-15 12:40 | disposition home or self-care (01) ==
LOC: JASU-SURG 04:14
PROVIDERS: ATTEND Pain Medicine Pain Medicine
PROC: 3E0T3TZ Introduction of Destructive Agent into Peripheral Nerves and Plexi, Percutaneous Approach (ICD-10-PCS; principal; 2021-11-15 12:30)
DX: M47.816 Spondylosis without myelopathy or radiculopathy, lumbar region (principal)
CPT/HCPCS: 76000-TC-FY; J1100

== ENCOUNTER 2021-12-17 03:54 | Day surgery (SDC) | payer OTHER, MEDICARE ==
[2021-12-11 15:44] VITALS: BMI 29.6
[2021-12-17] MEDS ORDERED: DEXAMETHASONE SOD PHOSPHATE 10 MG/1 ML VIAL ONE (08:06)
[2021-12-17] MEDS ORDERED: LIDOCAINE HCL/PF 1% SDV 5ML VIAL ONE (08:06)
[2021-12-17] MEDS ORDERED: SODIUM CHLORIDE 0.9% P/F 10 ML VIAL IJ ONE (08:11)
[2021-12-17] MEDS ORDERED: BUPIVACAINE HCL/PF 0.75% 10 ML VIAL ONE (08:17)
[2021-12-17] MEDS ORDERED: BUPIVACAINE HCL/PF 0.25% (2.5MG/ML) 10 ML VIAL ONE (08:17)
[2021-12-17] MEDS ORDERED: TRIAMCINOLONE ACET 40MG/1ML VIAL ONE (12:14)
[2021-12-17] MEDS ORDERED: BUPIVACAINE HCL/PF 0.25% (2.5MG/ML) 10 ML VIAL IJ ONE (12:44)
[2021-12-17] MEDS ORDERED: TRIAMCINOLONE ACET 40MG/1ML VIAL IM ONE (12:44)
[2021-12-17] MEDS ORDERED: LIDOCAINE HCL 1% PRESERVATIVE FREE - 30ML VIAL IJ ONE (12:44)
[2021-12-17 14:35] VITALS: BP 164/65; PULSE 64; TEMP 97.9
== END 2021-12-17 13:45 | disposition home or self-care (01) ==
LOC: JASU-SURG 03:54
PROVIDERS: ATTEND Pain Medicine Pain Medicine
PROC: 3E0U3BZ Introduction of Anesthetic Agent into Joints, Percutaneous Approach (ICD-10-PCS; 2021-12-17)
PROC: 3E0U33Z Introduction of Anti-inflammatory into Joints, Percutaneous Approach (ICD-10-PCS; principal; 2021-12-17 10:00)
DX: M53.3 Sacrococcygeal disorders, not elsewhere classified (principal)
CPT/HCPCS: 76000-TC-FY; J1100

== ENCOUNTER 2022-04-21 04:33 | Day surgery (SDC) | payer OTHER, MEDICARE ==
[2022-04-18 15:52] VITALS: BMI 31.7
[2022-04-21 10:44] VITALS: TEMP 98
[2022-04-21 14:24] VITALS: BP 126/76; PULSE 97; RESP 22
== END 2022-04-21 12:20 | disposition home or self-care (01) ==
LOC: JASU-ENDO 04:33
PROVIDERS: ATTEND Internal Medicine Gastroenterology
PROC: 0D5L8ZZ Destruction of Transverse Colon, Via Natural or Artificial Opening Endoscopic (ICD-10-PCS; 2022-04-21)
PROC: 0D5K8ZZ Destruction of Ascending Colon, Via Natural or Artificial Opening Endoscopic (ICD-10-PCS; principal; 2022-04-21 10:00)
DX: Z12.11 Encounter for screening for malignant neoplasm of colon (principal); D12.2 Benign neoplasm of ascending colon; D12.3 Benign neoplasm of transverse colon; K57.30 Diverticulosis of large intestine without perforation or abscess without bleeding; K64.8 Other hemorrhoids; Z86.010 Personal history of colon polyps
CPT/HCPCS: 88305-TC; 88342-TC

== ENCOUNTER 2022-05-02 04:10 | Day surgery (SDC) | payer OTHER, MEDICARE ==
[2022-05-01 08:57] VITALS: BMI 29.6
[2022-05-02] MEDS ORDERED: LIDOCAINE HCL/PF 1% SDV 5ML VIAL ONE (07:33)
[2022-05-02] MEDS ORDERED: DEXAMETHASONE SOD PHOSPHATE 10 MG/1 ML VIAL ONE (07:34)
[2022-05-02 09:24] VITALS: RESP 18
[2022-05-02] MEDS ORDERED: DEXAMETHASONE SOD PHOSPHATE 10 MG/1 ML VIAL IVPUSH ONE (11:14)
[2022-05-02] MEDS ORDERED: LIDOCAINE 1% P/F 10 MG/ML VIAL INF ONE (11:15)
[2022-05-02] MEDS ORDERED: IOHEXOL 180 MG/1 ML ML IJ ONE (11:16)
[2022-05-02 12:51] VITALS: BP 142/88; PULSE 83; TEMP 97.3
== END 2022-05-02 12:30 | disposition home or self-care (01) ==
LOC: JASU-SURG 04:10
PROVIDERS: ATTEND Pain Medicine Pain Medicine
PROC: 3E0R33Z Introduction of Anti-inflammatory into Spinal Canal, Percutaneous Approach (ICD-10-PCS; 2022-05-02)
PROC: 3E0R3BZ Introduction of Anesthetic Agent into Spinal Canal, Percutaneous Approach (ICD-10-PCS; principal; 2022-05-02 10:45)
DX: M54.16 Radiculopathy, lumbar region (principal)
CPT/HCPCS: 76000-TC-FY; J1100

== ENCOUNTER 2022-05-26 21:29 | Inpatient (IN) | payer OTHER, MEDICARE ==
[2022-05-27 01:39] LABS: BASO % 0.4 % (0-2.0); EOS % 1.9 % (0-4.5); HEMATOCRIT 33.1 % (32.4-45.2); LYMPH % 45.6 % (8-40); MCH 29.7 pg (25.7-33.7); MCHC 33.3 g/dl (32.0-36.0); MEAN CELL VOLUME 89.1 fl (80-96); MEAN PLT VOLUME 7.2 fl (7.5-11.1); MONO % 11.1 % (3.8-10.2); PLATELET COUNT 237 10^3/uL (134-434); RBC 3.71 M/mm3 (3.60-5.2); RDW 13.5 % (11.6-15.6); WHITE BLOOD COUNT 4.7 K/mm3 (4.0-10.0)
[2022-05-27 02:00] LABS: ALBUMIN 3.2 g/dl (3.4-5.0); CALCIUM 8.8 mg/dL (8.5-10.1)
[2022-05-27 02:01] LABS: BLOOD UREA NITROGEN 16.1 mg/dL (7-18); MAGNESIUM 1.4 mg/dL (1.8-2.4)
[2022-05-27 02:03] LABS: CREATININE 0.8 mg/dL (0.55-1.3)
[2022-05-27 02:04] LABS: PHOSPHOROUS 2.8 mg/dL (2.5-4.9)
[2022-05-27 02:05] LABS: BILIRUBIN,TOTAL 0.2 mg/dL (0.2-1); TOT PROT 6.3 g/dl (6.4-8.2)
[2022-05-27 05:22] LABS: PH,URINE 6.5 (5.0-8.0); URINE APPEARANCE CLEAR; URINE BILIRUBIN NEGATIVE (NEGATIVE); URINE COLOR YELLOW; URINE GLUCOSE (UA) NEGATIVE (NEGATIVE); URINE KETONE NEGATIVE (NEGATIVE); URINE LEUK ESTERASE NEGATIVE (NEGATIVE); URINE NITRITE NEGATIVE (NEGATIVE); URINE PROTEIN NEGATIVE (NEGATIVE); URINE UROBILINOGEN 0.2 mg/dL (0.2-1.0)
[2022-05-27 06:40] LABS: N-TERMINAL BNP 2287.8 pg/ml (5-450)
[2022-05-27] MEDS ORDERED: ACETAMINOPHEN 1000 MG/100 ML BAG IVPB ONE (08:49)
[2022-05-27] MEDS ORDERED: ACETAMINOPHEN INJECTION 100 ML IVPB ONE (08:56)
[2022-05-27] MEDS ORDERED: ACETAMINOPHEN 325 MG TABLET (FP) PO PRN (09:42)
[2022-05-27] MEDS ORDERED: GABAPENTIN 300 MG CAPSULE ONE (09:50)
[2022-05-27] MEDS: APIXABAN 5 MG TABLET PO SCH ×2 (09:51→22:06)
[2022-05-27] MEDS: FUROSEMIDE 40 MG/4 ML INJECTABLE VIAL IVPUSH SCH (09:52)
[2022-05-27] MEDS: ASCORBIC ACID 500 MG TABLET (FP) PO SCH (09:52)
[2022-05-27] MEDS ORDERED: ENOXAPARIN NA (PORCINE) 40 MG/0.4 ML DISP.SYRIN SQ SCH (10:00)
[2022-05-27] MEDS ORDERED: GABAPENTIN 100 MG CAPSULE PO SCH (10:00)
[2022-05-27] MEDS: GABAPENTIN 300 MG CAPSULE PO SCH ×2 (10:46→22:06)
[2022-05-27] MEDS: SOTALOL HCL 80 MG TABLET (FP) PO SCH (11:09)
[2022-05-27] MEDS: FLUTICASONE PROP 0.05% 16 GM NASAL SPRAY NS SCH (11:10)
[2022-05-27] MEDS ORDERED: MAGNESIUM OXIDE 400 MG TABLET (FP) PO ONE (11:34)
[2022-05-27] MEDS: INSULIN SLIDING SCALE (NOVOLOG) 1 VIAL SQ SCH ×2 (17:25→22:15)
[2022-05-27 18:41] VITALS: BMI 31.4
[2022-05-27] MEDS ORDERED: BENZOCAINE/MENTH/CETYLPYRD CL 1 EACH LOZENGE MM PRN (20:41)
[2022-05-27] MEDS: ATORVASTATIN CA 40 MG TABLET (FP) PO SCH (22:06)
[2022-05-27] MEDS: MONTELUKAST NA 10 MG TABLET PO SCH (22:06)
[2022-05-27] MEDS ORDERED: IBUPROFEN 400 MG TABLET (FP) PO ONE (22:17)
[2022-05-28] MEDS: INSULIN SLIDING SCALE (NOVOLOG) 1 VIAL SQ SCH ×4 (06:00→21:27)
[2022-05-28 08:41] LABS: BASO % 0.4 % (0-2.0); HEMATOCRIT 34.8 % (32.4-45.2); HEMOGLOBIN 11.6 GM/dL (10.7-15.3); LYMPH % 40.9 % (8-40); MCH 29.6 pg (25.7-33.7); MCHC 33.2 g/dl (32.0-36.0); MEAN CELL VOLUME 89.1 fl (80-96); MEAN PLT VOLUME 7.5 fl (7.5-11.1); MONO % 10.6 % (3.8-10.2); NEUT % 45.1 % (42.8-82.8); PLATELET COUNT 242 10^3/uL (134-434); RDW 13.3 % (11.6-15.6); WHITE BLOOD COUNT 5.6 K/mm3 (4.0-10.0)
[2022-05-28 09:01] LABS: ALBUMIN 3.1 g/dl (3.4-5.0); CALCIUM 9.1 mg/dL (8.5-10.1)
[2022-05-28 09:02] LABS: MAGNESIUM 1.5 mg/dL (1.8-2.4)
[2022-05-28 09:05] LABS: CREATININE 0.8 mg/dL (0.55-1.3); PHOSPHOROUS 3.2 mg/dL (2.5-4.9)
[2022-05-28 09:06] LABS: BILIRUBIN,TOTAL 0.5 mg/dL (0.2-1); TOT PROT 6.1 g/dl (6.4-8.2)
[2022-05-28] MEDS: SOTALOL HCL 80 MG TABLET (FP) PO SCH (10:11)
[2022-05-28] MEDS: GABAPENTIN 300 MG CAPSULE PO SCH ×2 (10:11→21:22)
[2022-05-28] MEDS: ASCORBIC ACID 500 MG TABLET (FP) PO SCH (10:11)
[2022-05-28] MEDS: APIXABAN 5 MG TABLET PO SCH ×2 (10:11→21:22)
[2022-05-28] MEDS: FLUTICASONE PROP 0.05% 16 GM NASAL SPRAY NS SCH (10:12)
[2022-05-28] MEDS: FUROSEMIDE 40 MG/4 ML INJECTABLE VIAL IVPUSH SCH (10:12)
[2022-05-28] MEDS ORDERED: amLODIPine BESYLATE 10 MG TABLET (FP) PO SCH (13:00)
[2022-05-28] MEDS: LOSARTAN POTASSIUM 50 MG TABLET PO SCH (13:36)
[2022-05-28] MEDS ORDERED: REMDESIVIR 200 MG in SODIUM CHLORIDE 250 ML IVPB ONE (14:00)
[2022-05-28] MEDS ORDERED: IBUPROFEN 200 MG TABLET PO ONE (15:04)
[2022-05-28] MEDS ORDERED: IBUPROFEN 400 MG TABLET (FP) PO ONE (15:16)
[2022-05-28] MEDS ORDERED: MAGNESIUM OXIDE 400 MG TABLET (FP) PO ONE ×2 (15:32→16:00)
[2022-05-28] MEDS ORDERED: ALBUTEROL SO4 0.083% IH SOL 2.5 MG/3 ML VIAL.NEB. NEB PRN (16:58)
[2022-05-28] MEDS ORDERED: LEVALBUTEROL HCL 0.31 MG/3 ML VIAL.NEB IH PRN (17:04)
[2022-05-28] MEDS ORDERED: REMDESIVIR 100 MG in SODIUM CHLORIDE 250 ML IVPB SCH (17:15)
[2022-05-28] MEDS ORDERED: dilTIAZem HCL 30 MG TABLET PO ONE (17:39)
[2022-05-28] MEDS: ACETAMINOPHEN 325 MG TABLET (FP) PO PRN (21:22)
[2022-05-28] MEDS: MONTELUKAST NA 10 MG TABLET PO SCH (21:22)
[2022-05-28] MEDS: ATORVASTATIN CA 40 MG TABLET (FP) PO SCH (21:22)
[2022-05-28] MEDS: dilTIAZem HCL 30 MG TABLET PO SCH (21:27)
[2022-05-28] MEDS: guaiFENesin 200 MG/10 ML 10 ML UNIT-DOSE CUPS PO PRN (21:30)
[2022-05-29] MEDS: dilTIAZem HCL 30 MG TABLET PO SCH ×3 (05:45→21:19)
[2022-05-29] MEDS: INSULIN SLIDING SCALE (NOVOLOG) 1 VIAL SQ SCH ×4 (06:04→21:33)
[2022-05-29 07:54] LABS: HEMOGLOBIN 12.2 GM/dL (10.7-15.3); MCHC 32.8 g/dl (32.0-36.0); MEAN CELL VOLUME 88.4 fl (80-96); PLATELET COUNT 256 10^3/uL (134-434); RBC 4.19 M/mm3 (3.60-5.2); RDW 13.1 % (11.6-15.6); WHITE BLOOD COUNT 5.8 K/mm3 (4.0-10.0)
[2022-05-29] MEDS ORDERED: POTASSIUM CHLORIDE ORAL LIQUID 20 MEQ/15 ML PO ONE (08:12)
[2022-05-29 08:16] LABS: ALBUMIN 3.2 g/dl (3.4-5.0)
[2022-05-29 08:17] LABS: BLOOD UREA NITROGEN 16.9 mg/dL (7-18)
[2022-05-29 08:19] LABS: CREATININE 0.8 mg/dL (0.55-1.3)
[2022-05-29 08:20] LABS: BILIRUBIN,TOTAL 0.5 mg/dL (0.2-1)
[2022-05-29 08:21] LABS: TOT PROT 6.2 g/dl (6.4-8.2)
[2022-05-29] MEDS ORDERED: amLODIPine BESYLATE 10 MG TABLET (FP) PO SCH (10:00)
[2022-05-29] MEDS ORDERED: FUROSEMIDE 40 MG TABLET (FP) PO SCH (10:00)
[2022-05-29] MEDS: LOSARTAN POTASSIUM 50 MG TABLET PO SCH (10:41)
[2022-05-29] MEDS: APIXABAN 5 MG TABLET PO SCH ×2 (10:41→21:19)
[2022-05-29] MEDS: GABAPENTIN 300 MG CAPSULE PO SCH ×2 (10:42→21:19)
[2022-05-29] MEDS: FUROSEMIDE 40 MG TABLET (FP) PO SCH (10:42)
[2022-05-29] MEDS: ASCORBIC ACID 500 MG TABLET (FP) PO SCH (10:42)
[2022-05-29] MEDS: SOTALOL HCL 80 MG TABLET (FP) PO SCH (10:43)
[2022-05-29] MEDS: FLUTICASONE PROP 0.05% 16 GM NASAL SPRAY NS SCH (10:43)
[2022-05-29] MEDS: FLUTICASONE/UMECLIDIN/VILANTER(100-62.5-25 TRELEGY ELLIPTA) INAHLER IH SCH (10:47)
[2022-05-29] MEDS: ACETAMINOPHEN 325 MG TABLET (FP) PO PRN ×2 (12:26→21:20)
[2022-05-29] MEDS ORDERED: IBUPROFEN 600 MG TABLET (FP) PO ONE (14:29)
[2022-05-29] MEDS: CYCLOBENZAPRINE HCL 5 MG TABLET PO ONE ×2 (14:50→14:56)
[2022-05-29] MEDS: guaiFENesin 200 MG/10 ML 10 ML UNIT-DOSE CUPS PO PRN ×2 (14:58→21:20)
[2022-05-29] MEDS: LIDOCAINE 5% TOPICAL PATCH TP SCH (14:59)
[2022-05-29] MEDS: REMDESIVIR 100 MG in SODIUM CHLORIDE 250 ML IVPB SCH (15:16)
[2022-05-29] MEDS: MONTELUKAST NA 10 MG TABLET PO SCH (21:19)
[2022-05-29] MEDS: ATORVASTATIN CA 40 MG TABLET (FP) PO SCH (21:19)
[2022-05-29] MEDS: LIDOCAINE PATCH REMOVAL MC SCH (21:33)
[2022-05-29] MEDS ORDERED: KETOROLAC TROMETHAMINE 15 MG/ML VIAL IVPUSH ONE (23:29)
[2022-05-30] MEDS: dilTIAZem HCL 30 MG TABLET PO SCH ×2 (05:43→13:06)
[2022-05-30] MEDS: INSULIN SLIDING SCALE (NOVOLOG) 1 VIAL SQ SCH ×4 (06:04→22:17)
[2022-05-30 08:28] LABS: HEMATOCRIT 35.5 % (32.4-45.2); HEMOGLOBIN 11.8 GM/dL (10.7-15.3); MCH 29.1 pg (25.7-33.7); MCHC 33.1 g/dl (32.0-36.0); MEAN CELL VOLUME 87.7 fl (80-96); MEAN PLT VOLUME 7.8 fl (7.5-11.1); PLATELET COUNT 263 10^3/uL (134-434); RBC 4.05 M/mm3 (3.60-5.2); RDW 13.1 % (11.6-15.6); WHITE BLOOD COUNT 5.9 K/mm3 (4.0-10.0)
[2022-05-30 08:51] LABS: ALBUMIN 3.2 g/dl (3.4-5.0); BLOOD UREA NITROGEN 21.2 mg/dL (7-18); CALCIUM 8.9 mg/dL (8.5-10.1); MAGNESIUM 1.6 mg/dL (1.8-2.4)
[2022-05-30 08:54] LABS: CREATININE 0.9 mg/dL (0.55-1.3); PHOSPHOROUS 3.9 mg/dL (2.5-4.9)
[2022-05-30 08:56] LABS: BILIRUBIN,TOTAL 0.4 mg/dL (0.2-1); TOT PROT 6.3 g/dl (6.4-8.2)
[2022-05-30] MEDS: FUROSEMIDE 40 MG TABLET (FP) PO SCH (09:55)
[2022-05-30] MEDS: LOSARTAN POTASSIUM 50 MG TABLET PO SCH (09:55)
[2022-05-30] MEDS: ASCORBIC ACID 500 MG TABLET (FP) PO SCH (09:56)
[2022-05-30] MEDS: GABAPENTIN 300 MG CAPSULE PO SCH ×2 (09:56→22:07)
[2022-05-30] MEDS: POTASSIUM CHLORIDE TABS 20 MEQ TABLET.ER (FP) PO SCH (09:56)
[2022-05-30] MEDS: SOTALOL HCL 80 MG TABLET (FP) PO SCH (09:56)
[2022-05-30] MEDS: APIXABAN 5 MG TABLET PO SCH ×2 (09:56→22:07)
[2022-05-30] MEDS: LIDOCAINE 5% TOPICAL PATCH TP SCH (09:57)
[2022-05-30] MEDS: FLUTICASONE/UMECLIDIN/VILANTER(100-62.5-25 TRELEGY ELLIPTA) INAHLER IH SCH (10:00)
[2022-05-30] MEDS: FLUTICASONE PROP 0.05% 16 GM NASAL SPRAY NS SCH (10:00)
[2022-05-30] MEDS: guaiFENesin 200 MG/10 ML 10 ML UNIT-DOSE CUPS PO PRN (12:51)
[2022-05-30] MEDS: REMDESIVIR 100 MG in SODIUM CHLORIDE 250 ML IVPB SCH (13:37)
[2022-05-30] MEDS ORDERED: MAGNESIUM OXIDE 400 MG TABLET (FP) PO ONE (17:10)
[2022-05-30] MEDS: MONTELUKAST NA 10 MG TABLET PO SCH (22:07)
[2022-05-30] MEDS: ATORVASTATIN CA 40 MG TABLET (FP) PO SCH (22:07)
[2022-05-30] MEDS: LIDOCAINE PATCH REMOVAL MC SCH (22:19)
[2022-05-31] MEDS: ACETAMINOPHEN 325 MG TABLET (FP) PO PRN (03:26)
[2022-05-31] MEDS: INSULIN SLIDING SCALE (NOVOLOG) 1 VIAL SQ SCH ×4 (06:06→21:25)
[2022-05-31 08:56] LABS: HEMATOCRIT 33.4 % (32.4-45.2); HEMOGLOBIN 11.3 GM/dL (10.7-15.3); MCH 29.9 pg (25.7-33.7); MCHC 33.9 g/dl (32.0-36.0); MEAN CELL VOLUME 88.1 fl (80-96); MEAN PLT VOLUME 7.9 fl (7.5-11.1); PLATELET COUNT 256 10^3/uL (134-434); RDW 13.1 % (11.6-15.6); WHITE BLOOD COUNT 6.1 K/mm3 (4.0-10.0)
[2022-05-31 09:18] LABS: CALCIUM 8.8 mg/dL (8.5-10.1)
[2022-05-31 09:19] LABS: BLOOD UREA NITROGEN 18.2 mg/dL (7-18); MAGNESIUM 1.6 mg/dL (1.8-2.4)
[2022-05-31 09:22] LABS: CREATININE 0.8 mg/dL (0.55-1.3); PHOSPHOROUS 3.5 mg/dL (2.5-4.9)
[2022-05-31] MEDS: POTASSIUM CHLORIDE TABS 20 MEQ TABLET.ER (FP) PO SCH (09:29)
[2022-05-31] MEDS: APIXABAN 5 MG TABLET PO SCH ×2 (09:29→21:22)
[2022-05-31] MEDS: GABAPENTIN 300 MG CAPSULE PO SCH ×2 (09:29→21:22)
[2022-05-31] MEDS: LOSARTAN POTASSIUM 50 MG TABLET PO SCH (09:30)
[2022-05-31] MEDS: FUROSEMIDE 40 MG TABLET (FP) PO SCH (09:30)
[2022-05-31] MEDS: SOTALOL HCL 80 MG TABLET (FP) PO SCH (09:31)
[2022-05-31] MEDS: FLUTICASONE/UMECLIDIN/VILANTER(100-62.5-25 TRELEGY ELLIPTA) INAHLER IH SCH (09:35)
[2022-05-31] MEDS: FLUTICASONE PROP 0.05% 16 GM NASAL SPRAY NS SCH (09:35)
[2022-05-31] MEDS: LIDOCAINE 5% TOPICAL PATCH TP SCH (09:35)
[2022-05-31] MEDS: ASCORBIC ACID 500 MG TABLET (FP) PO SCH (09:36)
[2022-05-31] MEDS: dilTIAZem HCL 30 MG TABLET PO SCH ×3 (09:51→18:16)
[2022-05-31] MEDS ORDERED: MAGNESIUM SULF 50% (8.12 MEQ/2 ML-1 GM VIAL) IVPB ONE (15:00)
[2022-05-31] MEDS ORDERED: dilTIAZem HCL 30 MG TABLET PO SCH (19:00)
[2022-05-31] MEDS: ATORVASTATIN CA 40 MG TABLET (FP) PO SCH (21:22)
[2022-05-31] MEDS: MONTELUKAST NA 10 MG TABLET PO SCH (21:22)
[2022-05-31] MEDS: guaiFENesin 200 MG/10 ML 10 ML UNIT-DOSE CUPS PO PRN (21:23)
[2022-05-31] MEDS: LIDOCAINE PATCH REMOVAL MC SCH (21:25)
[2022-06-01] MEDS: dilTIAZem HCL 30 MG TABLET PO SCH ×4 (00:25→17:33)
[2022-06-01] MEDS: INSULIN SLIDING SCALE (NOVOLOG) 1 VIAL SQ SCH ×4 (06:35→21:51)
[2022-06-01 07:36] LABS: HEMATOCRIT 33.7 % (32.4-45.2); HEMOGLOBIN 11.6 GM/dL (10.7-15.3); MCH 30.2 pg (25.7-33.7); MCHC 34.2 g/dl (32.0-36.0); MEAN CELL VOLUME 88.1 fl (80-96); MEAN PLT VOLUME 7.6 fl (7.5-11.1); PLATELET COUNT 268 10^3/uL (134-434); RBC 3.83 M/mm3 (3.60-5.2); RDW 13.2 % (11.6-15.6); WHITE BLOOD COUNT 7.8 K/mm3 (4.0-10.0)
[2022-06-01 07:53] LABS: BLOOD UREA NITROGEN 14.6 mg/dL (7-18); CALCIUM 9.1 mg/dL (8.5-10.1); MAGNESIUM 1.8 mg/dL (1.8-2.4)
[2022-06-01 07:56] LABS: CREATININE 0.7 mg/dL (0.55-1.3)
[2022-06-01 07:57] LABS: PHOSPHOROUS 3.4 mg/dL (2.5-4.9)
[2022-06-01] MEDS: ASCORBIC ACID 500 MG TABLET (FP) PO SCH (10:15)
[2022-06-01] MEDS: LOSARTAN POTASSIUM 50 MG TABLET PO SCH (10:15)
[2022-06-01] MEDS: APIXABAN 5 MG TABLET PO SCH ×2 (10:15→21:51)
[2022-06-01] MEDS: FUROSEMIDE 40 MG TABLET (FP) PO SCH (10:16)
[2022-06-01] MEDS: POTASSIUM CHLORIDE TABS 20 MEQ TABLET.ER (FP) PO SCH (10:16)
[2022-06-01] MEDS: SOTALOL HCL 80 MG TABLET (FP) PO SCH (10:16)
[2022-06-01] MEDS: GABAPENTIN 300 MG CAPSULE PO SCH ×2 (10:16→21:51)
[2022-06-01] MEDS: CEFTRIAXONE 1 GM in DEXTROSE 5%-WATER - 50 ML IVPB SCH (10:16)
[2022-06-01] MEDS: LIDOCAINE 5% TOPICAL PATCH TP SCH (10:16)
[2022-06-01] MEDS: FLUTICASONE PROP 0.05% 16 GM NASAL SPRAY NS SCH (10:17)
[2022-06-01] MEDS: FLUTICASONE/UMECLIDIN/VILANTER(100-62.5-25 TRELEGY ELLIPTA) INAHLER IH SCH (10:18)
[2022-06-01] MEDS: DEXAMETHASONE SOD PHOSPHATE 4 MG/1 ML VIAL IVPUSH SCH (10:50)
[2022-06-01] MEDS: ACETAMINOPHEN 325 MG TABLET (FP) PO PRN (19:30)
[2022-06-01] MEDS: MONTELUKAST NA 10 MG TABLET PO SCH (21:51)
[2022-06-01] MEDS: ATORVASTATIN CA 40 MG TABLET (FP) PO SCH (21:51)
[2022-06-01] MEDS: guaiFENesin 200 MG/10 ML 10 ML UNIT-DOSE CUPS PO PRN (21:54)
[2022-06-01] MEDS: LIDOCAINE PATCH REMOVAL MC SCH (23:57)
[2022-06-02] MEDS: dilTIAZem HCL 30 MG TABLET PO SCH ×5 (01:15→23:06)
[2022-06-02] MEDS: INSULIN SLIDING SCALE (NOVOLOG) 1 VIAL SQ SCH ×4 (07:02→22:55)
[2022-06-02 07:43] LABS: HEMATOCRIT 36.5 % (32.4-45.2); HEMOGLOBIN 12.1 GM/dL (10.7-15.3); MCH 29.2 pg (25.7-33.7); MCHC 33.2 g/dl (32.0-36.0); MEAN CELL VOLUME 87.9 fl (80-96); MEAN PLT VOLUME 8.4 fl (7.5-11.1); PLATELET COUNT 321 10^3/uL (134-434); RBC 4.16 M/mm3 (3.60-5.2); WHITE BLOOD COUNT 11.1 K/mm3 (4.0-10.0)
[2022-06-02 07:55] LABS: BLOOD UREA NITROGEN 13.7 mg/dL (7-18); CALCIUM 9.2 mg/dL (8.5-10.1); MAGNESIUM 1.6 mg/dL (1.8-2.4)
[2022-06-02 07:59] LABS: CREATININE 0.7 mg/dL (0.55-1.3); PHOSPHOROUS 3.6 mg/dL (2.5-4.9)
[2022-06-02] MEDS: DEXAMETHASONE SOD PHOSPHATE 4 MG/1 ML VIAL IVPUSH SCH (10:16)
[2022-06-02] MEDS: SOTALOL HCL 80 MG TABLET (FP) PO SCH (10:16)
[2022-06-02] MEDS: POTASSIUM CHLORIDE TABS 20 MEQ TABLET.ER (FP) PO SCH (10:16)
[2022-06-02] MEDS: LOSARTAN POTASSIUM 50 MG TABLET PO SCH (10:16)
[2022-06-02] MEDS: CEFTRIAXONE 1 GM in DEXTROSE 5%-WATER - 50 ML IVPB SCH (10:16)
[2022-06-02] MEDS: LIDOCAINE 5% TOPICAL PATCH TP SCH (10:16)
[2022-06-02] MEDS: GABAPENTIN 300 MG CAPSULE PO SCH ×2 (10:16→22:55)
[2022-06-02] MEDS: FLUTICASONE PROP 0.05% 16 GM NASAL SPRAY NS SCH (10:16)
[2022-06-02] MEDS: ASCORBIC ACID 500 MG TABLET (FP) PO SCH (10:16)
[2022-06-02] MEDS: FUROSEMIDE 40 MG TABLET (FP) PO SCH (10:16)
[2022-06-02] MEDS: APIXABAN 5 MG TABLET PO SCH ×2 (10:16→22:55)
[2022-06-02] MEDS: FLUTICASONE/UMECLIDIN/VILANTER(100-62.5-25 TRELEGY ELLIPTA) INAHLER IH SCH (10:17)
[2022-06-02] MEDS: REMDESIVIR 100 MG in SODIUM CHLORIDE 250 ML IVPB SCH (10:30)
[2022-06-02] MEDS ORDERED: IBUPROFEN 200 MG TABLET PO PRN (11:01)
[2022-06-02] MEDS ORDERED: MAGNESIUM 1GM/D5W 100ML - 100 ML IVPB IVPB ONE (15:22)
[2022-06-02] MEDS: ACETAMINOPHEN 325 MG TABLET (FP) PO PRN (22:54)
[2022-06-02] MEDS: ATORVASTATIN CA 40 MG TABLET (FP) PO SCH (22:55)
[2022-06-02] MEDS: LIDOCAINE PATCH REMOVAL MC SCH (22:55)
[2022-06-02] MEDS: MONTELUKAST NA 10 MG TABLET PO SCH (22:55)
[2022-06-03] MEDS: dilTIAZem HCL 30 MG TABLET PO SCH ×2 (06:14→12:11)
[2022-06-03] MEDS: INSULIN SLIDING SCALE (NOVOLOG) 1 VIAL SQ SCH ×4 (06:14→22:14)
[2022-06-03] MEDS ORDERED: REMDESIVIR 100 MG in SODIUM CHLORIDE 270 ML IVPB ONE (10:00)
[2022-06-03] MEDS: ASCORBIC ACID 500 MG TABLET (FP) PO SCH (10:50)
[2022-06-03] MEDS: FUROSEMIDE 40 MG TABLET (FP) PO SCH (10:50)
[2022-06-03] MEDS: SOTALOL HCL 80 MG TABLET (FP) PO SCH (10:52)
[2022-06-03] MEDS: LIDOCAINE 5% TOPICAL PATCH TP SCH (10:52)
[2022-06-03] MEDS: POTASSIUM CHLORIDE TABS 20 MEQ TABLET.ER (FP) PO SCH (10:52)
[2022-06-03] MEDS: GABAPENTIN 300 MG CAPSULE PO SCH ×2 (10:52→22:19)
[2022-06-03] MEDS: REMDESIVIR 100 MG in SODIUM CHLORIDE 250 ML IVPB SCH (10:52)
[2022-06-03] MEDS: DEXAMETHASONE SOD PHOSPHATE 4 MG/1 ML VIAL IVPUSH SCH (10:52)
[2022-06-03] MEDS: CEFTRIAXONE 1 GM in DEXTROSE 5%-WATER - 50 ML IVPB SCH (10:52)
[2022-06-03] MEDS: APIXABAN 5 MG TABLET PO SCH ×2 (10:52→22:19)
[2022-06-03] MEDS: FLUTICASONE PROP 0.05% 16 GM NASAL SPRAY NS SCH (10:53)
[2022-06-03] MEDS: FLUTICASONE/UMECLIDIN/VILANTER(100-62.5-25 TRELEGY ELLIPTA) INAHLER IH SCH (10:53)
[2022-06-03] MEDS: LOSARTAN POTASSIUM 50 MG TABLET PO SCH (10:53)
[2022-06-03 12:09] LABS: HEMOGLOBIN 12.5 GM/dL (10.7-15.3); MCH 29.1 pg (25.7-33.7); MCHC 32.7 g/dl (32.0-36.0); MEAN CELL VOLUME 88.9 fl (80-96); MEAN PLT VOLUME 7.8 fl (7.5-11.1); PLATELET COUNT 349 10^3/uL (134-434); RBC 4.28 M/mm3 (3.60-5.2); RDW 13.4 % (11.6-15.6); WHITE BLOOD COUNT 13.5 K/mm3 (4.0-10.0)
[2022-06-03 12:47] LABS: ALBUMIN 3.5 g/dl (3.4-5.0)
[2022-06-03 12:49] LABS: CALCIUM 9.4 mg/dL (8.5-10.1)
[2022-06-03 12:50] LABS: BLOOD UREA NITROGEN 23.4 mg/dL (7-18); MAGNESIUM 1.8 mg/dL (1.8-2.4)
[2022-06-03 12:51] LABS: CREATININE 0.9 mg/dL (0.55-1.3)
[2022-06-03 12:53] LABS: PHOSPHOROUS 3.5 mg/dL (2.5-4.9)
[2022-06-03 12:55] LABS: TOT PROT 6.7 g/dl (6.4-8.2)
[2022-06-03 12:56] LABS: BILIRUBIN,TOTAL 0.5 mg/dL (0.2-1)
[2022-06-03] MEDS: dilTIAZem HCL 60 MG TABLET PO SCH (17:53)
[2022-06-03] MEDS: ATORVASTATIN CA 40 MG TABLET (FP) PO SCH (22:19)
[2022-06-03] MEDS: MONTELUKAST NA 10 MG TABLET PO SCH (22:19)
[2022-06-03] MEDS: LIDOCAINE PATCH REMOVAL MC SCH (22:19)
[2022-06-04] MEDS: dilTIAZem HCL 60 MG TABLET PO SCH ×2 (00:40→06:32)
[2022-06-04] MEDS: ACETAMINOPHEN 325 MG TABLET (FP) PO PRN ×2 (03:53→20:18)
[2022-06-04] MEDS: INSULIN SLIDING SCALE (NOVOLOG) 1 VIAL SQ SCH ×4 (06:32→21:44)
[2022-06-04 08:23] LABS: HEMATOCRIT 40.8 % (32.4-45.2); HEMOGLOBIN 13.1 GM/dL (10.7-15.3); MCH 28.7 pg (25.7-33.7); MCHC 32.2 g/dl (32.0-36.0); MEAN CELL VOLUME 89.2 fl (80-96); MEAN PLT VOLUME 8.1 fl (7.5-11.1); PLATELET COUNT 350 10^3/uL (134-434); RBC 4.58 M/mm3 (3.60-5.2); RDW 13.6 % (11.6-15.6); WHITE BLOOD COUNT 12.6 K/mm3 (4.0-10.0)
[2022-06-04 08:44] LABS: CALCIUM 9.7 mg/dL (8.5-10.1)
[2022-06-04 08:45] LABS: BLOOD UREA NITROGEN 26.9 mg/dL (7-18); MAGNESIUM 1.7 mg/dL (1.8-2.4)
[2022-06-04 08:48] LABS: CREATININE 0.9 mg/dL (0.55-1.3); PHOSPHOROUS 4.7 mg/dL (2.5-4.9)
[2022-06-04] MEDS: FUROSEMIDE 40 MG TABLET (FP) PO SCH (10:45)
[2022-06-04] MEDS: LOSARTAN POTASSIUM 50 MG TABLET PO SCH (10:45)
[2022-06-04] MEDS: ASCORBIC ACID 500 MG TABLET (FP) PO SCH (10:45)
[2022-06-04] MEDS: APIXABAN 5 MG TABLET PO SCH ×3 (10:45→21:43)
[2022-06-04] MEDS: SOTALOL HCL 80 MG TABLET (FP) PO SCH (10:45)
[2022-06-04] MEDS: POTASSIUM CHLORIDE TABS 20 MEQ TABLET.ER (FP) PO SCH (10:45)
[2022-06-04] MEDS: GABAPENTIN 300 MG CAPSULE PO SCH ×3 (10:45→21:44)
[2022-06-04] MEDS: LIDOCAINE 5% TOPICAL PATCH TP SCH (10:46)
[2022-06-04] MEDS: FLUTICASONE PROP 0.05% 16 GM NASAL SPRAY NS SCH (10:48)
[2022-06-04] MEDS: FLUTICASONE/UMECLIDIN/VILANTER(100-62.5-25 TRELEGY ELLIPTA) INAHLER IH SCH (10:48)
[2022-06-04] MEDS: DEXAMETHASONE 4 MG TABLET (FP) PO SCH (11:01)
[2022-06-04] MEDS ORDERED: MAGNESIUM SULF 50% (8.12 MEQ/2 ML-1 GM VIAL) IVPB ONE (14:30)
[2022-06-04] MEDS: ATORVASTATIN CA 40 MG TABLET (FP) PO SCH ×2 (20:21→21:44)
[2022-06-04] MEDS: MONTELUKAST NA 10 MG TABLET PO SCH ×2 (20:21→21:44)
[2022-06-04] MEDS: guaiFENesin 200 MG/10 ML 10 ML UNIT-DOSE CUPS PO PRN (20:22)
[2022-06-04] MEDS: LIDOCAINE PATCH REMOVAL MC SCH (21:44)
[2022-06-05] MEDS: ACETAMINOPHEN 325 MG TABLET (FP) PO PRN ×2 (03:42→20:38)
[2022-06-05] MEDS: guaiFENesin 200 MG/10 ML 10 ML UNIT-DOSE CUPS PO PRN ×2 (03:43→20:41)
[2022-06-05] MEDS: INSULIN SLIDING SCALE (NOVOLOG) 1 VIAL SQ SCH ×4 (06:25→21:20)
[2022-06-05 08:14] LABS: HEMATOCRIT 39.8 % (32.4-45.2); HEMOGLOBIN 12.9 GM/dL (10.7-15.3); MCH 28.7 pg (25.7-33.7); MCHC 32.5 g/dl (32.0-36.0); MEAN CELL VOLUME 88.3 fl (80-96); MEAN PLT VOLUME 7.9 fl (7.5-11.1); PLATELET COUNT 346 10^3/uL (134-434); RBC 4.51 M/mm3 (3.60-5.2); RDW 13.5 % (11.6-15.6); WHITE BLOOD COUNT 13.3 K/mm3 (4.0-10.0)
[2022-06-05 08:23] LABS: BLOOD UREA NITROGEN 35.5 mg/dL (7-18); CALCIUM 9.3 mg/dL (8.5-10.1); MAGNESIUM 1.7 mg/dL (1.8-2.4)
[2022-06-05 08:26] LABS: PHOSPHOROUS 4.2 mg/dL (2.5-4.9)
[2022-06-05] MEDS: APIXABAN 5 MG TABLET PO SCH ×3 (10:49→21:19)
[2022-06-05] MEDS: GABAPENTIN 300 MG CAPSULE PO SCH ×3 (10:49→21:19)
[2022-06-05] MEDS: POTASSIUM CHLORIDE TABS 20 MEQ TABLET.ER (FP) PO SCH (10:49)
[2022-06-05] MEDS: LOSARTAN POTASSIUM 50 MG TABLET PO SCH (10:49)
[2022-06-05] MEDS: FUROSEMIDE 20 MG TABLET (FP) PO SCH (10:49)
[2022-06-05] MEDS: ASCORBIC ACID 500 MG TABLET (FP) PO SCH (10:49)
[2022-06-05] MEDS: SOTALOL HCL 80 MG TABLET (FP) PO SCH (10:49)
[2022-06-05] MEDS: FLUTICASONE/UMECLIDIN/VILANTER(100-62.5-25 TRELEGY ELLIPTA) INAHLER IH SCH (10:50)
[2022-06-05] MEDS: FLUTICASONE PROP 0.05% 16 GM NASAL SPRAY NS SCH (10:50)
[2022-06-05] MEDS: DEXAMETHASONE 4 MG TABLET (FP) PO SCH (10:50)
[2022-06-05] MEDS: LIDOCAINE 5% TOPICAL PATCH TP SCH (10:50)
[2022-06-05] MEDS ORDERED: MAGNESIUM SULF 50% (8.12 MEQ/2 ML-1 GM VIAL) IVPB ONE (18:56)
[2022-06-05] MEDS: MONTELUKAST NA 10 MG TABLET PO SCH ×3 (20:42→21:20)
[2022-06-05] MEDS: ATORVASTATIN CA 40 MG TABLET (FP) PO SCH ×2 (20:42→21:19)
[2022-06-05] MEDS: LIDOCAINE PATCH REMOVAL MC SCH (21:19)
[2022-06-06] MEDS: INSULIN SLIDING SCALE (NOVOLOG) 1 VIAL SQ SCH ×4 (06:14→22:04)
[2022-06-06 08:12] LABS: HEMATOCRIT 41.5 % (32.4-45.2); HEMOGLOBIN 13.4 GM/dL (10.7-15.3); MCH 28.6 pg (25.7-33.7); MCHC 32.3 g/dl (32.0-36.0); MEAN CELL VOLUME 88.7 fl (80-96); MEAN PLT VOLUME 8.5 fl (7.5-11.1); PLATELET COUNT 324 10^3/uL (134-434); RBC 4.68 M/mm3 (3.60-5.2); RDW 13.7 % (11.6-15.6); WHITE BLOOD COUNT 12.5 K/mm3 (4.0-10.0)
[2022-06-06 08:31] LABS: CALCIUM 9.3 mg/dL (8.5-10.1)
[2022-06-06 08:32] LABS: MAGNESIUM 2.2 mg/dL (1.8-2.4)
[2022-06-06 08:35] LABS: CREATININE 0.9 mg/dL (0.55-1.3); PHOSPHOROUS 3.7 mg/dL (2.5-4.9)
[2022-06-06] MEDS: ASCORBIC ACID 500 MG TABLET (FP) PO SCH (09:23)
[2022-06-06] MEDS: FUROSEMIDE 20 MG TABLET (FP) PO SCH (09:23)
[2022-06-06] MEDS: SOTALOL HCL 80 MG TABLET (FP) PO SCH (09:23)
[2022-06-06] MEDS: APIXABAN 5 MG TABLET PO SCH (09:24)
[2022-06-06] MEDS: GABAPENTIN 300 MG CAPSULE PO SCH ×2 (09:24→22:03)
[2022-06-06] MEDS: LOSARTAN POTASSIUM 50 MG TABLET PO SCH (09:24)
[2022-06-06] MEDS: LIDOCAINE 5% TOPICAL PATCH TP SCH ×3 (09:25→22:17)
[2022-06-06] MEDS: FLUTICASONE PROP 0.05% 16 GM NASAL SPRAY NS SCH (09:25)
[2022-06-06] MEDS: POTASSIUM CHLORIDE TABS 20 MEQ TABLET.ER (FP) PO SCH (09:25)
[2022-06-06] MEDS: FLUTICASONE/UMECLIDIN/VILANTER(100-62.5-25 TRELEGY ELLIPTA) INAHLER IH SCH (09:26)
[2022-06-06] MEDS: ACETAMINOPHEN 325 MG TABLET (FP) PO PRN ×2 (11:27→17:47)
[2022-06-06] MEDS ORDERED: LIDOCAINE VISCOUS 2% ORAL/TOP 15 ML UNIT-DOSE CUP ONE (13:33)
[2022-06-06] MEDS ORDERED: FENTANYL CITRATE/PF 50 MCG/ML VIAL ONE (14:07)
[2022-06-06] MEDS ORDERED: APIXABAN 2.5 MG TABLET PO SCH (17:45)
[2022-06-06 20:30] VITALS: RESP 20
[2022-06-06] MEDS: ATORVASTATIN CA 40 MG TABLET (FP) PO SCH (22:03)
[2022-06-06] MEDS: MONTELUKAST NA 10 MG TABLET PO SCH (22:03)
[2022-06-06] MEDS: LIDOCAINE PATCH REMOVAL MC SCH (22:04)
[2022-06-06] MEDS: APIXABAN 2.5 MG TABLET PO SCH (22:07)
[2022-06-07] MEDS: INSULIN SLIDING SCALE (NOVOLOG) 1 VIAL SQ SCH ×2 (06:29→11:41)
[2022-06-07] MEDS: ACETAMINOPHEN 325 MG TABLET (FP) PO PRN (06:32)
[2022-06-07 08:21] LABS: CALCIUM 9.1 mg/dL (8.5-10.1)
[2022-06-07 08:22] LABS: BLOOD UREA NITROGEN 42.9 mg/dL (7-18); HEMATOCRIT 42.3 % (32.4-45.2); HEMOGLOBIN 13.5 GM/dL (10.7-15.3); MCH 28.8 pg (25.7-33.7); MEAN PLT VOLUME 7.9 fl (7.5-11.1); PLATELET COUNT 352 10^3/uL (134-434); RDW 13.8 % (11.6-15.6); WHITE BLOOD COUNT 12.6 K/mm3 (4.0-10.0)
[2022-06-07 08:25] LABS: CREATININE 1.2 mg/dL (0.55-1.3)
[2022-06-07] MEDS: FUROSEMIDE 20 MG TABLET (FP) PO SCH (09:13)
[2022-06-07] MEDS: POTASSIUM CHLORIDE TABS 20 MEQ TABLET.ER (FP) PO SCH ×2 (09:13→10:56)
[2022-06-07] MEDS: ASCORBIC ACID 500 MG TABLET (FP) PO SCH (09:13)
[2022-06-07] MEDS: FLUTICASONE PROP 0.05% 16 GM NASAL SPRAY NS SCH (09:13)
[2022-06-07] MEDS: LOSARTAN POTASSIUM 50 MG TABLET PO SCH (09:13)
[2022-06-07] MEDS: APIXABAN 2.5 MG TABLET PO SCH (09:13)
[2022-06-07] MEDS: GABAPENTIN 300 MG CAPSULE PO SCH (09:13)
[2022-06-07] MEDS: SOTALOL HCL 80 MG TABLET (FP) PO SCH ×3 (09:13→11:30)
[2022-06-07] MEDS: FLUTICASONE/UMECLIDIN/VILANTER(100-62.5-25 TRELEGY ELLIPTA) INAHLER IH SCH (09:15)
[2022-06-07] MEDS: LIDOCAINE 5% TOPICAL PATCH TP SCH (09:15)
[2022-06-07 09:49] VITALS: BP 125/66; PULSE 62; TEMP 97.8
== END 2022-06-07 14:00 | disposition home or self-care (01) | DRG 177 ==
LOC: JER 21:29 → JERBED 05-27 07:02 → OBSVTOIN 05-27 08:47 → J4W 05-27 15:33
PROVIDERS: ADMIT Internal Medicine; ATTEND Internal Medicine
PROC: 5A2204Z Restoration of Cardiac Rhythm, Single (ICD-10-PCS; principal; 2022-06-06 14:00)
DX: U07.1 COVID-19 (principal); I50.23 Acute on chronic systolic (congestive) heart failure; J12.82 Pneumonia due to coronavirus disease 2019; I13.0 Hypertensive heart and chronic kidney disease with heart failure and stage 1 through stage 4 chronic kidney disease, or unspecified chronic kidney disease; I48.19 Other persistent atrial fibrillation; J44.1 Chronic obstructive pulmonary disease with (acute) exacerbation; I25.119 Atherosclerotic heart disease of native coronary artery with unspecified angina pectoris; J81.1 Chronic pulmonary edema; E11.22 Type 2 diabetes mellitus with diabetic chronic kidney disease; N18.9 Chronic kidney disease, unspecified; I48.91 Unspecified atrial fibrillation; E78.5 Hyperlipidemia, unspecified; E87.6 Hypokalemia; E83.42 Hypomagnesemia
CPT/HCPCS: 0241U-QW; 36415; 71045-TC-FY; 80048; 80053; 81003; 82962; 83036; 83735; 83880; 84100; 84484; 85025; 85027; 86140; 87040; 87086; 93005; 93010; 97116-GP; 97162-GP; 99285-25; C9399; G0378

== ENCOUNTER 2022-09-19 10:30 | Day surgery (SDC) | payer OTHER, MEDICARE ==
[2022-09-19] MEDS ORDERED: IRON SUCROSE INJECTION 200 MG in SODIUM CHLORIDE 100 ML IVPB ONE (12:00)
[2022-09-19 16:44] VITALS: BP 137/68; PULSE 90; RESP 20; TEMP 98.1
== END 2022-09-19 13:10 | disposition home or self-care (01) ==
LOC: JONCNONCHE 10:30
PROVIDERS: ATTEND Specialist
PROC: 3E033GC Introduction of Other Therapeutic Substance into Peripheral Vein, Percutaneous Approach (ICD-10-PCS; principal; 2022-09-19)
DX: D50.9 Iron deficiency anemia, unspecified (principal)
CPT/HCPCS: 96365; J1756

== ENCOUNTER 2022-09-26 10:31 | Day surgery (SDC) | payer OTHER, MEDICARE ==
[~2022-09-26 10:31] MED LIST changes: -BUPIVACAINE HCL/PF 0.75% 10 ML VIAL NR ONE; -IOHEXOL 180 MG/1 ML ML IJ ONE; +IRON SUCROSE INJECTION 200 MG in SODIUM CHLORIDE 100 ML IVPB ONE; -LIDOCAINE HCL/PF 2% SDV 5ML VIAL INF ONE
[2022-09-26 12:24] VITALS: BP 136/81; PULSE 88; RESP 19; TEMP 98.1
== END 2022-09-26 12:25 | disposition home or self-care (01) ==
LOC: JONCNONCHE 10:31
PROVIDERS: ATTEND Specialist
PROC: 3E033GC Introduction of Other Therapeutic Substance into Peripheral Vein, Percutaneous Approach (ICD-10-PCS; principal; 2022-09-26)
DX: D50.9 Iron deficiency anemia, unspecified (principal)
CPT/HCPCS: 96365; J1756

== ENCOUNTER 2022-10-03 10:22 | Day surgery (SDC) | payer OTHER, MEDICARE ==
[2022-10-03] MEDS ORDERED: IRON SUCROSE INJECTION 200 MG in SODIUM CHLORIDE 100 ML IVPB ONE (10:30)
[2022-10-03 17:41] VITALS: TEMP 98.1
[2022-10-03 17:42] VITALS: BP 155/90; PULSE 74; RESP 18
== END 2022-10-03 12:30 | disposition home or self-care (01) ==
LOC: JONCNONCHE 10:22
PROVIDERS: ATTEND Specialist
PROC: 3E033GC Introduction of Other Therapeutic Substance into Peripheral Vein, Percutaneous Approach (ICD-10-PCS; principal; 2022-10-03)
DX: D50.9 Iron deficiency anemia, unspecified (principal)
CPT/HCPCS: 96365; J1756

== ENCOUNTER 2022-10-10 10:16 | Day surgery (SDC) | payer OTHER, MEDICARE ==
[2022-10-10] MEDS ORDERED: IRON SUCROSE INJECTION 200 MG in SODIUM CHLORIDE 100 ML IVPB ONE ×2 (11:00→11:30)
[2022-10-10 14:43] VITALS: BP 113/73; PULSE 83; RESP 20; TEMP 98.1
== END 2022-10-10 12:20 | disposition home or self-care (01) ==
LOC: JONCNONCHE 10:16
PROVIDERS: ATTEND Specialist
PROC: 3E033GC Introduction of Other Therapeutic Substance into Peripheral Vein, Percutaneous Approach (ICD-10-PCS; principal; 2022-10-10)
DX: D50.9 Iron deficiency anemia, unspecified (principal)
CPT/HCPCS: 96365; J1756

== ENCOUNTER 2022-10-17 10:16 | Day surgery (SDC) | payer OTHER, MEDICARE ==
[2022-10-17 15:38] VITALS: BP 140/79; PULSE 100; RESP 19; TEMP 97.8
== END 2022-10-17 12:10 | disposition home or self-care (01) ==
LOC: JONCNONCHE 10:16 → J7W 10:17 → JONCNONCHE 12:10
PROVIDERS: ATTEND Specialist
PROC: 3E033GC Introduction of Other Therapeutic Substance into Peripheral Vein, Percutaneous Approach (ICD-10-PCS; principal; 2022-10-17)
DX: D50.9 Iron deficiency anemia, unspecified (principal)
CPT/HCPCS: 96365; J1756

== ENCOUNTER 2022-11-14 04:25 | Day surgery (SDC) | payer OTHER, MEDICARE ==
[2022-11-13 10:46] VITALS: BMI 29.2
[2022-11-14] MEDS ORDERED: LIDOCAINE HCL/PF 1% SDV 5ML VIAL ONE (07:42)
[2022-11-14] MEDS ORDERED: BUPIVACAINE HCL/PF 0.5% (5MG/ML) 10 ML VIAL ONE (07:42)
[2022-11-14 10:35] VITALS: BP 128/81; PULSE 90; RESP 18; TEMP 98.7
[2022-11-14] MEDS ORDERED: ACETAMINOPHEN 500 MG TABLET (FP) PO PRN (15:19)
== END 2022-11-14 11:46 | disposition home or self-care (01) ==
LOC: JASU-SURG 04:25
PROVIDERS: ATTEND Pain Medicine Pain Medicine
DX: Z53.8 Procedure and treatment not carried out for other reasons (principal)

== ENCOUNTER 2022-11-18 04:06 | Day surgery (SDC) | payer OTHER, MEDICARE ==
[2022-11-17 09:28] VITALS: BMI 29.2
[2022-11-18] MEDS ORDERED: BUPIVACAINE HCL/PF 0.5% (5MG/ML) 10 ML VIAL ONE (07:47)
[2022-11-18] MEDS ORDERED: LIDOCAINE HCL/PF 1% SDV 5ML VIAL ONE (07:47)
[2022-11-18 12:37] VITALS: RESP 18
[2022-11-18] MEDS ORDERED: BUPIVACAINE HCL/PF 0.5% (5MG/ML) 10 ML VIAL IJ ONE ×2 (13:09)
[2022-11-18] MEDS ORDERED: LIDOCAINE HCL 1% PRESERVATIVE FREE - 30ML VIAL IJ ONE (13:09)
[2022-11-18] MEDS ORDERED: IOHEXOL 180 MG/1 ML ML IJ ONE (13:10)
[2022-11-18 14:47] VITALS: BP 150/78; PULSE 78; TEMP 97.8
== END 2022-11-18 14:40 | disposition home or self-care (01) ==
LOC: JASU-SURG 04:06
PROVIDERS: ATTEND Pain Medicine Pain Medicine
PROC: 3E0T3BZ Introduction of Anesthetic Agent into Peripheral Nerves and Plexi, Percutaneous Approach (ICD-10-PCS; principal; 2022-11-18 14:45)
DX: M47.812 Spondylosis without myelopathy or radiculopathy, cervical region (principal)
CPT/HCPCS: 76000-TC-FY

== ENCOUNTER 2022-12-09 04:24 | Day surgery (SDC) | payer OTHER, MEDICARE ==
[2022-12-05 16:54] VITALS: BMI 29.0
[2022-12-09] MEDS ORDERED: BUPIVACAINE HCL/PF 0.5% (5MG/ML) 10 ML VIAL IJ ONE (10:39)
[2022-12-09] MEDS ORDERED: LIDOCAINE HCL 1% PRESERVATIVE FREE - 30ML VIAL IJ ONE (10:39)
[2022-12-09] MEDS ORDERED: IOHEXOL 180 MG/1 ML ML IJ ONE (10:39)
[2022-12-09 11:40] VITALS: PULSE 72; RESP 20; TEMP 97.8
[2022-12-09 12:22] VITALS: BP 138/78
[2022-12-09] MEDS ORDERED: ACETAMINOPHEN 500 MG TABLET (FP) PO PRN (20:08)
== END 2022-12-09 12:29 | disposition home or self-care (01) ==
LOC: JASU-SURG 04:24
PROVIDERS: ATTEND Pain Medicine Pain Medicine
PROC: 3E0T33Z Introduction of Anti-inflammatory into Peripheral Nerves and Plexi, Percutaneous Approach (ICD-10-PCS; 2022-12-09)
PROC: 3E0T3BZ Introduction of Anesthetic Agent into Peripheral Nerves and Plexi, Percutaneous Approach (ICD-10-PCS; principal; 2022-12-09 10:45)
DX: M47.812 Spondylosis without myelopathy or radiculopathy, cervical region (principal)
CPT/HCPCS: 76000-TC-FY

== ENCOUNTER 2022-12-12 07:46 | Inpatient (IN) | payer OTHER, MEDICARE ==
[2022-12-12 08:43] LABS: BASO % 0.3 % (0-2.0); EOS % 1.8 % (0-4.5); HEMATOCRIT 35.3 % (32.4-45.2); HEMOGLOBIN 12.2 GM/dL (10.7-15.3); LYMPH % 32.5 % (8-40); MCH 30.7 pg (25.7-33.7); MCHC 34.5 g/dl (32.0-36.0); MEAN CELL VOLUME 89.1 fl (80-96); MEAN PLT VOLUME 6.9 fl (7.5-11.1); MONO % 10.1 % (3.8-10.2); NEUT % 55.3 % (42.8-82.8); PLATELET COUNT 229 10^3/uL (134-434); RBC 3.96 M/mm3 (3.60-5.2); RDW 15.8 % (11.6-15.6); WHITE BLOOD COUNT 7.3 K/mm3 (4.0-10.0)
[2022-12-12 09:01] LABS: POTASSIUM 4.5 mmol/L (3.5-5.1)
[2022-12-12 09:05] LABS: ALBUMIN 3.7 g/dl (3.4-5.0); BLOOD UREA NITROGEN 22.3 mg/dL (7-18); CALCIUM 9.1 mg/dL (8.5-10.1)
[2022-12-12 09:07] LABS: PHOSPHOROUS 3.5 mg/dL (2.5-4.9)
[2022-12-12 09:09] LABS: BILIRUBIN,TOTAL 0.4 mg/dL (0.2-1); TOT PROT 6.4 g/dl (6.4-8.2)
[2022-12-12] MEDS ORDERED: ACETAMINOPHEN 500 MG TABLET (FP) PO ONE (09:12)
[2022-12-12] MEDS ORDERED: ACETAMINOPHEN 500 MG TABLET (FP) ONE (09:17)
[2022-12-12 09:22] LABS: ACTIVATED PTT 40.6 SECONDS (25.2-36.5); INR 1.51 (0.83-1.09); PROTHROMBIN TIME (PATIENT) 17.4 SEC (9.7-13.0)
[2022-12-12] MEDS ORDERED: SODIUM CHLORIDE 0.9% 500 ML INFUS.BAG IV ONE (10:05)
[2022-12-12 18:52] LABS: MAGNESIUM 1.5 mg/dL (1.8-2.4)
[2022-12-12 19:00] LABS: N-TERMINAL BNP 1760.8 pg/ml (5-450)
[2022-12-12] MEDS ORDERED: ACETAMINOPHEN 1000 MG/100 ML BAG IVPB ONE (20:39)
[2022-12-12] MEDS ORDERED: ACETAMINOPHEN INJECTION 100 ML IVPB ONE (20:43)
[2022-12-12] MEDS ORDERED: SOTALOL HCL 80 MG TABLET (FP) PO SCH (22:00)
[2022-12-12] MEDS: ATORVASTATIN CA 40 MG TABLET (FP) PO SCH (23:11)
[2022-12-12] MEDS: GABAPENTIN 300 MG CAPSULE PO SCH (23:11)
[2022-12-12] MEDS: MONTELUKAST NA 10 MG TABLET PO SCH (23:13)
[2022-12-12] MEDS: APIXABAN 5 MG TABLET PO SCH (23:13)
[2022-12-13] MEDS ORDERED: ACETAMINOPHEN 325 MG TABLET (FP) PO ONE (05:12)
[2022-12-13] MEDS: GABAPENTIN 300 MG CAPSULE PO SCH ×3 (05:54→22:32)
[2022-12-13] MEDS: SOTALOL HCL 80 MG TABLET (FP) PO SCH ×3 (05:54→22:33)
[2022-12-13] MEDS ORDERED: MAGNESIUM SULF 50% (8.12 MEQ/2 ML-1 GM VIAL) IVPB ONE (06:00)
[2022-12-13 07:27] LABS: BASO % 0.8 % (0-2.0); EOS % 2.1 % (0-4.5); HEMATOCRIT 35.7 % (32.4-45.2); HEMOGLOBIN 11.9 GM/dL (10.7-15.3); LYMPH % 27.9 % (8-40); MCH 30.1 pg (25.7-33.7); MCHC 33.3 g/dl (32.0-36.0); MEAN CELL VOLUME 90.3 fl (80-96); MEAN PLT VOLUME 7.6 fl (7.5-11.1); NEUT % 60.2 % (42.8-82.8); PLATELET COUNT 217 10^3/uL (134-434); RBC 3.96 M/mm3 (3.60-5.2); RDW 15.8 % (11.6-15.6); WHITE BLOOD COUNT 6.9 K/mm3 (4.0-10.0)
[2022-12-13 07:50] LABS: POTASSIUM 3.8 mmol/L (3.5-5.1)
[2022-12-13 07:54] LABS: ALBUMIN 3.1 g/dl (3.4-5.0)
[2022-12-13 07:55] LABS: BLOOD UREA NITROGEN 15.2 mg/dL (7-18); CALCIUM 9.1 mg/dL (8.5-10.1)
[2022-12-13 07:57] LABS: CREATININE 0.8 mg/dL (0.55-1.3)
[2022-12-13 07:58] LABS: PHOSPHOROUS 3.3 mg/dL (2.5-4.9); TOT PROT 5.6 g/dl (6.4-8.2)
[2022-12-13 08:03] LABS: BILIRUBIN,TOTAL 0.6 mg/dL (0.2-1)
[2022-12-13] MEDS: PANTOPRAZOLE 40 MG TABLET PO SCH (09:24)
[2022-12-13] MEDS: LIDOCAINE 5% TOPICAL PATCH TP SCH (09:24)
[2022-12-13] MEDS: LOSARTAN POTASSIUM 50 MG TABLET PO SCH (09:24)
[2022-12-13] MEDS: APIXABAN 5 MG TABLET PO SCH ×2 (09:24→22:32)
[2022-12-13] MEDS: FUROSEMIDE 20 MG TABLET (FP) PO SCH (09:27)
[2022-12-13 10:08] LABS: EPI CELLS 3 /uL (0-25.1); HYALINE CASTS 4 /uL (0-3.1); PH,URINE 5.5 (5.0-8.0); URINE APPEARANCE CLEAR; URINE BACTERIA >9,000 /uL (0-1359); URINE BILIRUBIN NEGATIVE (NEGATIVE); URINE COLOR YELLOW; URINE GLUCOSE (UA) NEGATIVE (NEGATIVE); URINE KETONE TRACE (NEGATIVE); URINE LEUK ESTERASE 2+ (NEGATIVE); URINE NITRITE POSITIVE (NEGATIVE); URINE PROTEIN NEGATIVE (NEGATIVE); URINE RBC 8 /uL (0-23.9); URINE UROBILINOGEN 0.2 mg/dL (0.2-1.0); URINE WBC 469 /uL (0-25.8)
[2022-12-13] MEDS: FLUTICASONE/UMECLIDIN/VILANTER(200-62.5-25 TRELEGY ELLIPTA) INAHLER IH SCH (10:08)
[2022-12-13] MEDS: FLUTICASONE PROP 0.05% 16 GM NASAL SPRAY NS SCH (10:08)
[2022-12-13] MEDS: ACETAMINOPHEN 325 MG TABLET (FP) PO PRN ×2 (14:07→22:34)
[2022-12-13] MEDS: MONTELUKAST NA 10 MG TABLET PO SCH (22:31)
[2022-12-13] MEDS: ATORVASTATIN CA 40 MG TABLET (FP) PO SCH (22:32)
[2022-12-13] MEDS: LIDOCAINE PATCH REMOVAL MC SCH (22:34)
[2022-12-13] MEDS: CEFTRIAXONE 1 GM in DEXTROSE 5%-WATER - 50 ML IVPB SCH (22:34)
[2022-12-14] MEDS: GABAPENTIN 300 MG CAPSULE PO SCH ×3 (06:03→22:25)
[2022-12-14] MEDS: SOTALOL HCL 80 MG TABLET (FP) PO SCH ×3 (06:03→22:25)
[2022-12-14] MEDS: LIDOCAINE 5% TOPICAL PATCH TP SCH (09:20)
[2022-12-14] MEDS: FLUTICASONE/UMECLIDIN/VILANTER(200-62.5-25 TRELEGY ELLIPTA) INAHLER IH SCH (09:23)
[2022-12-14] MEDS: FLUTICASONE PROP 0.05% 16 GM NASAL SPRAY NS SCH (09:24)
[2022-12-14] MEDS: CEFTRIAXONE 1 GM in DEXTROSE 5%-WATER - 50 ML IVPB SCH (09:27)
[2022-12-14] MEDS: PANTOPRAZOLE 40 MG TABLET PO SCH (09:28)
[2022-12-14] MEDS: APIXABAN 5 MG TABLET PO SCH ×2 (09:29→22:25)
[2022-12-14] MEDS: LOSARTAN POTASSIUM 50 MG TABLET PO SCH (09:29)
[2022-12-14] MEDS: FUROSEMIDE 20 MG TABLET (FP) PO SCH (09:29)
[2022-12-14 09:37] LABS: POTASSIUM 4.3 mmol/L (3.5-5.1)
[2022-12-14 09:41] LABS: BLOOD UREA NITROGEN 15.1 mg/dL (7-18)
[2022-12-14 09:42] LABS: ALBUMIN 3.4 g/dl (3.4-5.0)
[2022-12-14 09:45] LABS: CREATININE 0.8 mg/dL (0.55-1.3)
[2022-12-14 09:46] LABS: BILIRUBIN,TOTAL 0.6 mg/dL (0.2-1)
[2022-12-14 11:19] LABS: BASO % 0.6 % (0-2.0); EOS % 2.5 % (0-4.5); HEMATOCRIT 34.7 % (32.4-45.2); HEMOGLOBIN 11.9 GM/dL (10.7-15.3); MCH 30.6 pg (25.7-33.7); MCHC 34.4 g/dl (32.0-36.0); MEAN CELL VOLUME 88.9 fl (80-96); MEAN PLT VOLUME 7.3 fl (7.5-11.1); MONO % 9.2 % (3.8-10.2); NEUT % 62.7 % (42.8-82.8); PLATELET COUNT 225 10^3/uL (134-434); RBC 3.91 M/mm3 (3.60-5.2); RDW 15.9 % (11.6-15.6)
[2022-12-14 12:10] VITALS: BMI 30.2
[2022-12-14] MEDS: ACETAMINOPHEN 325 MG TABLET (FP) PO PRN ×2 (15:13→22:26)
[2022-12-14] MEDS: MONTELUKAST NA 10 MG TABLET PO SCH (22:25)
[2022-12-14] MEDS: ATORVASTATIN CA 40 MG TABLET (FP) PO SCH (22:25)
[2022-12-14] MEDS: LIDOCAINE PATCH REMOVAL MC SCH (22:26)
[2022-12-15] MEDS: ACETAMINOPHEN 325 MG TABLET (FP) PO PRN ×2 (03:24→22:27)
[2022-12-15] MEDS: SOTALOL HCL 80 MG TABLET (FP) PO SCH ×4 (05:49→21:18)
[2022-12-15] MEDS: GABAPENTIN 300 MG CAPSULE PO SCH ×4 (05:49→21:17)
[2022-12-15] MEDS: LIDOCAINE 5% TOPICAL PATCH TP SCH (10:30)
[2022-12-15] MEDS: FUROSEMIDE 20 MG TABLET (FP) PO SCH (10:30)
[2022-12-15] MEDS: LOSARTAN POTASSIUM 50 MG TABLET PO SCH (10:30)
[2022-12-15] MEDS: CEFTRIAXONE 1 GM in DEXTROSE 5%-WATER - 50 ML IVPB SCH (10:30)
[2022-12-15] MEDS: APIXABAN 5 MG TABLET PO SCH ×2 (10:30→21:18)
[2022-12-15] MEDS: PANTOPRAZOLE 40 MG TABLET PO SCH (10:30)
[2022-12-15] MEDS: FLUTICASONE PROP 0.05% 16 GM NASAL SPRAY NS SCH (10:36)
[2022-12-15] MEDS: FLUTICASONE/UMECLIDIN/VILANTER(200-62.5-25 TRELEGY ELLIPTA) INAHLER IH SCH (10:36)
[2022-12-15] MEDS: MONTELUKAST NA 10 MG TABLET PO SCH (21:18)
[2022-12-15] MEDS: LIDOCAINE PATCH REMOVAL MC SCH (21:18)
[2022-12-15] MEDS: ATORVASTATIN CA 40 MG TABLET (FP) PO SCH (21:18)
[2022-12-16 01:10] VITALS: TEMP 98.1
[2022-12-16] MEDS: SOTALOL HCL 80 MG TABLET (FP) PO SCH ×2 (06:27→14:31)
[2022-12-16] MEDS: GABAPENTIN 300 MG CAPSULE PO SCH ×2 (06:27→14:30)
[2022-12-16] MEDS: CEFTRIAXONE 1 GM in DEXTROSE 5%-WATER - 50 ML IVPB SCH (09:22)
[2022-12-16] MEDS: APIXABAN 5 MG TABLET PO SCH (09:24)
[2022-12-16] MEDS: PANTOPRAZOLE 40 MG TABLET PO SCH (09:24)
[2022-12-16] MEDS: FUROSEMIDE 20 MG TABLET (FP) PO SCH (09:24)
[2022-12-16] MEDS: LIDOCAINE 5% TOPICAL PATCH TP SCH (09:25)
[2022-12-16] MEDS: LOSARTAN POTASSIUM 50 MG TABLET PO SCH (09:25)
[2022-12-16] MEDS: FLUTICASONE/UMECLIDIN/VILANTER(200-62.5-25 TRELEGY ELLIPTA) INAHLER IH SCH (09:26)
[2022-12-16] MEDS: FLUTICASONE PROP 0.05% 16 GM NASAL SPRAY NS SCH (09:26)
[2022-12-16 11:01] VITALS: RESP 18
[2022-12-16 11:33] VITALS: BP 152/75; PULSE 63
[2022-12-16 11:50] LABS: BASO % 0.5 % (0-2.0); EOS % 2.7 % (0-4.5); HEMATOCRIT 35.9 % (32.4-45.2); HEMOGLOBIN 11.7 GM/dL (10.7-15.3); LYMPH % 30.7 % (8-40); MCH 29.9 pg (25.7-33.7); MCHC 32.6 g/dl (32.0-36.0); MEAN CELL VOLUME 91.8 fl (80-96); MEAN PLT VOLUME 7.6 fl (7.5-11.1); MONO % 9.7 % (3.8-10.2); NEUT % 56.4 % (42.8-82.8); PLATELET COUNT 229 10^3/uL (134-434); RBC 3.91 M/mm3 (3.60-5.2); RDW 15.3 % (11.6-15.6); WHITE BLOOD COUNT 6.4 K/mm3 (4.0-10.0)
[2022-12-16 12:09] LABS: POTASSIUM 3.8 mmol/L (3.5-5.1)
[2022-12-16 12:11] LABS: BLOOD UREA NITROGEN 18.2 mg/dL (7-18); CALCIUM 9.3 mg/dL (8.5-10.1)
[2022-12-16 12:12] LABS: ALBUMIN 3.4 g/dl (3.4-5.0)
[2022-12-16 12:15] LABS: CREATININE 0.9 mg/dL (0.55-1.3)
[2022-12-16 12:16] LABS: BILIRUBIN,TOTAL 0.3 mg/dL (0.2-1); TOT PROT 6.3 g/dl (6.4-8.2)
== END 2022-12-16 15:02 | disposition home or self-care (01) | DRG 309 ==
LOC: JER 07:46 → JERBED 13:33 → J4W 21:20 → OBSVTOIN 12-15 10:09
PROVIDERS: ADMIT Internal Medicine; ATTEND Internal Medicine
PROC: 5A2204Z Restoration of Cardiac Rhythm, Single (ICD-10-PCS; principal; 2022-12-15 09:00)
DX: I48.91 Unspecified atrial fibrillation (principal); I13.0 Hypertensive heart and chronic kidney disease with heart failure and stage 1 through stage 4 chronic kidney disease, or unspecified chronic kidney disease; I50.42 Chronic combined systolic (congestive) and diastolic (congestive) heart failure; N39.0 Urinary tract infection, site not specified; I25.10 Atherosclerotic heart disease of native coronary artery without angina pectoris; N18.9 Chronic kidney disease, unspecified; E78.5 Hyperlipidemia, unspecified
CPT/HCPCS: 36415; 71045-TC-FY; 80053; 81003; 82550; 83735; 83880; 84100; 84443; 84484; 85025; 85610; 85730; 87086; 87186; 93005; 93010; 93306-TC; 99285-25; G0378

== ENCOUNTER 2023-01-13 04:50 | Day surgery (SDC) | payer OTHER, MEDICARE ==
[2023-01-12 09:01] VITALS: BMI 28.9
[2023-01-13 12:07] VITALS: TEMP 97.7
[2023-01-13 12:59] VITALS: BP 160/89; PULSE 65; RESP 18
== END 2023-01-13 13:24 | disposition home or self-care (01) ==
LOC: JASU-ENDO 04:50
PROVIDERS: ATTEND Internal Medicine Cardiovascular Disease
PROC: 5A2204Z Restoration of Cardiac Rhythm, Single (ICD-10-PCS; principal; 2023-01-13 10:30)
DX: I48.91 Unspecified atrial fibrillation (principal)
CPT/HCPCS: 93005; 93010

== ENCOUNTER 2023-05-02 08:26 | Emergency (ER) | payer OTHER, MEDICARE ==
[2023-05-02 08:54] VITALS: BMI 28.9
[2023-05-02] MEDS ORDERED: SODIUM CHLORIDE 0.9% 500 ML INFUS.BAG IV ONE (09:29)
[2023-05-02 09:54] LABS: BASO % 0.6 % (0-2.0); EOS % 0.8 % (0-4.5); HEMATOCRIT 36.6 % (32.4-45.2); HEMOGLOBIN 12.2 GM/dL (10.7-15.3); LYMPH % 26.4 % (8-40); MCH 29.7 pg (25.7-33.7); MCHC 33.3 g/dl (32.0-36.0); MEAN CELL VOLUME 89.4 fl (80-96); MEAN PLT VOLUME 7.6 fl (7.5-11.1); MONO % 7.7 % (3.8-10.2); NEUT % 64.5 % (42.8-82.8); PLATELET COUNT 234 10^3/uL (134-434); RBC 4.09 M/mm3 (3.60-5.2); RDW 13.9 % (11.6-15.6); WHITE BLOOD COUNT 8.4 K/mm3 (4.0-10.0)
[2023-05-02 09:57] LABS: EPI CELLS 16 /uL (0-25.1); HYALINE CASTS 0 /uL (0-3.1); PH,URINE 6.5 (5.0-8.0); URINE APPEARANCE CLEAR; URINE BACTERIA 37 /uL (0-1359); URINE BILIRUBIN NEGATIVE (NEGATIVE); URINE COLOR YELLOW; URINE GLUCOSE (UA) NEGATIVE (NEGATIVE); URINE KETONE NEGATIVE (NEGATIVE); URINE LEUK ESTERASE 1+ (NEGATIVE); URINE NITRITE NEGATIVE (NEGATIVE); URINE PROTEIN NEGATIVE (NEGATIVE); URINE RBC 12 /uL (0-23.9); URINE UROBILINOGEN 0.2 mg/dL (0.2-1.0); URINE WBC 15 /uL (0-25.8)
[2023-05-02 10:01] LABS: INR 1.53 (0.83-1.09); PROTHROMBIN TIME (PATIENT) 17.7 SEC (9.7-13.0)
[2023-05-02 10:04] LABS: ACTIVATED PTT 27.7 SECONDS (25.2-36.5)
[2023-05-02] MEDS ORDERED: FUROSEMIDE 40 MG/4 ML INJECTABLE VIAL IVPUSH ONE (10:39)
[2023-05-02] MEDS ORDERED: FUROSEMIDE 40 MG/4 ML INJECTABLE VIAL ONE (10:46)
[2023-05-02 11:08] LABS: ALBUMIN 3.3 g/dl (3.4-5.0); BILIRUBIN,TOTAL 0.4 mg/dL (0.2-1); BLOOD UREA NITROGEN 14.2 mg/dL (7-18); CREATININE 0.9 mg/dL (0.55-1.3); N-TERMINAL BNP 1396.9 pg/ml (5-450); TOT PROT 6.4 g/dl (6.4-8.2)
[2023-05-02 11:55] VITALS: TEMP 98
[2023-05-02 13:44] VITALS: BP 140/80; PULSE 80; RESP 18
== END 2023-05-02 13:42 | disposition home or self-care (01) ==
LOC: JER 08:26
PROC: 3E033GC Introduction of Other Therapeutic Substance into Peripheral Vein, Percutaneous Approach (ICD-10-PCS; principal; 2023-05-02)
DX: R42 Dizziness and giddiness (principal); R00.2 Palpitations; R07.89 Other chest pain; R06.02 Shortness of breath; R11.0 Nausea; Z20.822 Contact with and (suspected) exposure to COVID-19
CPT/HCPCS: 0241U-QW; 36415; 71045-TC-FY; 80053; 81003; 83690; 83880; 84484; 85025; 85610; 85730; 87086; 93005; 93010; 99285-25

== ENCOUNTER 2024-02-10 09:55 | Inpatient (IN) | payer OTHER, MEDICARE ==
[2024-02-10 11:02] LABS: BASO % 0.3 % (0-2.0); HEMATOCRIT 29.3 % (32.4-45.2); HEMOGLOBIN 9.8 GM/dL (10.7-15.3); LYMPH % 18.2 % (8-40); MCH 26.9 pg (25.7-33.7); MCHC 33.5 g/dl (32.0-36.0); MEAN CELL VOLUME 80.2 fl (80-96); MEAN PLT VOLUME 6.9 fl (7.5-11.1); NEUT % 71.5 % (42.8-82.8); PLATELET COUNT 281 10^3/uL (134-434); RBC 3.65 M/mm3 (3.60-5.2); RDW 15.7 % (11.6-15.6); WHITE BLOOD COUNT 9.6 K/mm3 (4.0-10.0)
[2024-02-10 11:06] LABS: EPI CELLS 27 /uL (0-25.1); HYALINE CASTS 1 /uL (0-3.1); URINE APPEARANCE CLEAR; URINE BACTERIA 20 /uL (0-1359); URINE BILIRUBIN NEGATIVE (NEGATIVE); URINE COLOR YELLOW; URINE GLUCOSE (UA) NEGATIVE (NEGATIVE); URINE KETONE NEGATIVE (NEGATIVE); URINE LEUK ESTERASE 1+ (NEGATIVE); URINE NITRITE NEGATIVE (NEGATIVE); URINE PROTEIN NEGATIVE (NEGATIVE); URINE RBC 20 /uL (0-23.9); URINE UROBILINOGEN 0.2 mg/dL (0.2-1.0); URINE WBC 65 /uL (0-25.8)
[2024-02-10 11:11] LABS: INR 1.98 (0.83-1.09); PROTHROMBIN TIME (PATIENT) 21.9 SEC (9.7-13.0)
[2024-02-10 11:13] LABS: ACTIVATED PTT 39.9 SECONDS (25.2-36.5)
[2024-02-10 11:25] LABS: POTASSIUM 4.4 mmol/L (3.5-5.1)
[2024-02-10 11:28] LABS: ALBUMIN 3.5 g/dl (3.4-5.0); BLOOD UREA NITROGEN 17.5 mg/dL (7-18); CALCIUM 9.2 mg/dL (8.5-10.1)
[2024-02-10 11:32] LABS: CREATININE 0.9 mg/dL (0.55-1.3)
[2024-02-10 11:33] LABS: TOT PROT 6.6 g/dl (6.4-8.2)
[2024-02-10 11:34] LABS: BILIRUBIN,TOTAL 0.7 mg/dL (0.2-1)
[2024-02-10] MEDS ORDERED: MECLIZINE HCL 25 MG TABLET (FP) ONE (14:50)
[2024-02-10] MEDS: MECLIZINE HCL 25 MG TABLET (FP) PO ONE (15:03)
[2024-02-10] MEDS: SODIUM CHLORIDE 1,000 ML IV STA (15:21)
[2024-02-10] MEDS ORDERED: IBUPROFEN 400 MG TABLET (FP) PO ONE (17:07)
[2024-02-10] MEDS: IBUPROFEN 400 MG TABLET (FP) PO ONE (17:11)
[2024-02-10] MEDS ORDERED: ONDANSETRON 4 MG/2 ML VIAL ONE (17:49)
[2024-02-10] MEDS ORDERED: diazePAM 5 MG TABLET ONE (17:58)
[2024-02-10] MEDS: diazePAM 5 MG TABLET PO ONE (18:01)
[2024-02-10] MEDS: ONDANSETRON 4 MG/2 ML VIAL IVPUSH ONE (18:01)
[2024-02-10] MEDS: APIXABAN 5 MG TABLET PO SCH (23:48)
[2024-02-10] MEDS: ACETAMINOPHEN 325 MG TABLET (FP) PO ONE (23:48)
[2024-02-10] MEDS: ATORVASTATIN CA 40 MG TABLET (FP) PO SCH (23:48)
[2024-02-10] MEDS ORDERED: MECLIZINE HCL 12.5 MG TABLET PO PRN (23:57)
[2024-02-11] MEDS ORDERED: ARTIFICIAL TEARS OPHTHALMIC DROPS OU PRN (00:02)
[2024-02-11 02:13] VITALS: BMI 28.5
[2024-02-11] MEDS: GABAPENTIN 100 MG CAPSULE PO SCH (05:34)
[2024-02-11] MEDS: IBUPROFEN 400 MG TABLET (FP) PO ONE (05:54)
[2024-02-11] MEDS: LEVOTHYROXINE NA 25 MCG TABLET (FP) PO SCH (06:07)
[2024-02-11 08:30] LABS: BASO % 0.6 % (0-2.0); EOS % 2.1 % (0-4.5); HEMOGLOBIN 9.4 GM/dL (10.7-15.3); LYMPH % 22.2 % (8-40); MCH 27.2 pg (25.7-33.7); MCHC 33.7 g/dl (32.0-36.0); MEAN CELL VOLUME 80.8 fl (80-96); MEAN PLT VOLUME 7.3 fl (7.5-11.1); MONO % 9.9 % (3.8-10.2); NEUT % 65.2 % (42.8-82.8); PLATELET COUNT 246 10^3/uL (134-434); RBC 3.47 M/mm3 (3.60-5.2); RDW 15.2 % (11.6-15.6); WHITE BLOOD COUNT 6.1 K/mm3 (4.0-10.0)
[2024-02-11 08:51] LABS: POTASSIUM 4.2 mmol/L (3.5-5.1)
[2024-02-11 08:53] LABS: BLOOD UREA NITROGEN 12.9 mg/dL (7-18); CALCIUM 8.9 mg/dL (8.5-10.1)
[2024-02-11 08:56] LABS: CREATININE 0.8 mg/dL (0.55-1.3)
[2024-02-11] MEDS: FUROSEMIDE 20 MG TABLET (FP) PO SCH (11:09)
[2024-02-11] MEDS: MECLIZINE HCL 12.5 MG TABLET PO SCH (11:09)
[2024-02-11] MEDS: SOLIFENACIN SUCCINATE 5 MG TAB PO SCH (11:09)
[2024-02-11] MEDS: MULTIVITAMINS (DAILY MVI) TABLET (FP) PO SCH (11:09)
[2024-02-11] MEDS: GABAPENTIN 300 MG CAPSULE PO SCH (13:44)
[2024-02-11] MEDS: IRON SUCROSE INJECTION 200 MG in SODIUM CHLORIDE 100 ML IVPB ONE (13:44)
[2024-02-11] MEDS: FLUTICASONE PROP 0.05% 16 GM NASAL SPRAY NS SCH (14:17)
[2024-02-11] MEDS: MONTELUKAST NA 10 MG TABLET PO SCH (21:15)
[2024-02-11] MEDS: FLUTICASONE/UMECLIDIN/VILANTER(200-62.5-25 TRELEGY ELLIPTA) INAHLER IH SCH (22:55)
[2024-02-12] MEDS: ACETAMINOPHEN 325 MG TABLET (FP) PO ONE (04:21)
[2024-02-12] MEDS: LEVOTHYROXINE NA 50 MCG TABLET (FP) PO SCH (06:25)
[2024-02-12] MEDS: PANTOPRAZOLE 20 MG TABLET PO SCH (09:20)
[2024-02-12] MEDS ORDERED: PANTOPRAZOLE 40 MG TABLET PO SCH (10:00)
[2024-02-12] MEDS: IRON SUCROSE INJECTION 200 MG in SODIUM CHLORIDE 100 ML IVPB ONE (10:31)
[2024-02-12] MEDS: LIDOCAINE 4% PATCH TP SCH (11:33)
[2024-02-12] MEDS: MECLIZINE HCL 25 MG TABLET (FP) PO SCH (22:01)
[2024-02-12] MEDS: LIDOCAINE PATCH REMOVAL MC SCH (22:07)
[2024-02-12 23:23] VITALS: RESP 18
[2024-02-13] MEDS: ACETAMINOPHEN 500 MG TABLET (FP) PO ONE (05:01)
[2024-02-13] MEDS ORDERED: ACETAMINOPHEN 325 MG TABLET (FP) PO PRN (10:35)
[2024-02-13] MEDS: IRON SUCROSE INJECTION 200 MG in SODIUM CHLORIDE 100 ML IVPB ONE (12:12)
[2024-02-13 15:10] VITALS: BP 131/61; PULSE 76; TEMP 97.8
== END 2024-02-13 16:52 | disposition home or self-care (01) | DRG 812 ==
LOC: JER 09:55 → JERBED 17:42 → J4S 20:01 → OBSVTOIN 02-11 10:30
PROVIDERS: ADMIT Internal Medicine; ATTEND Family Medicine
DX: D50.9 Iron deficiency anemia, unspecified (principal); I13.0 Hypertensive heart and chronic kidney disease with heart failure and stage 1 through stage 4 chronic kidney disease, or unspecified chronic kidney disease; I50.32 Chronic diastolic (congestive) heart failure; J44.1 Chronic obstructive pulmonary disease with (acute) exacerbation; E11.22 Type 2 diabetes mellitus with diabetic chronic kidney disease; N18.9 Chronic kidney disease, unspecified; Z79.01 Long term (current) use of anticoagulants; E78.5 Hyperlipidemia, unspecified; I48.0 Paroxysmal atrial fibrillation; I25.10 Atherosclerotic heart disease of native coronary artery without angina pectoris; K21.9 Gastro-esophageal reflux disease without esophagitis
CPT/HCPCS: 0241U-QW; 36415; 70450-TC; 71045-TC-FY; 80048; 80053; 81003; 82607; 82728; 83540; 83550; 84443; 84484; 85025; 85610; 85730; 87086; 87186; 93005; 93010; 93306-TC; 99285-25; G0378; J1756

== ENCOUNTER 2024-04-20 11:20 | Emergency (ER) | payer OTHER, MEDICARE ==
[2024-04-20 11:34] VITALS: TEMP 97.9; BMI 27.1
[2024-04-20] MEDS ORDERED: ONDANSETRON 4 MG/2 ML VIAL ONE (14:12)
[2024-04-20] MEDS ORDERED: FAMOTIDINE 20 MG/50 ML IVPB 20 MG/50 ML MG IVPB ONE (14:13)
[2024-04-20] MEDS: FAMOTIDINE 20 MG/50 ML IVPB 20 MG/50 ML MG IVPB ONE (14:26)
[2024-04-20] MEDS: ONDANSETRON 4 MG/2 ML VIAL IVPB ONE (14:26)
[2024-04-20 14:43] LABS: BASO % 0.5 % (0-2.0); EOS % 1.2 % (0-4.5); HEMATOCRIT 32.5 % (32.4-45.2); HEMOGLOBIN 10.6 GM/dL (10.7-15.3); LYMPH % 27.5 % (8-40); MCH 28.4 pg (25.7-33.7); MCHC 32.6 g/dl (32.0-36.0); MEAN CELL VOLUME 86.9 fl (80-96); MEAN PLT VOLUME 7.6 fl (7.5-11.1); MONO % 9.3 % (3.8-10.2); NEUT % 61.5 % (42.8-82.8); PLATELET COUNT 232 10^3/uL (134-434); RBC 3.73 M/mm3 (3.60-5.2); RDW 15.8 % (11.6-15.6); WHITE BLOOD COUNT 7.5 K/mm3 (4.0-10.0)
[2024-04-20] MEDS: SODIUM CHLORIDE 500 ML IV STA (14:52)
[2024-04-20 14:59] LABS: EPI CELLS 10 /uL (0-25.1); HYALINE CASTS 1 /uL (0-3.1); URINE APPEARANCE CLEAR; URINE BACTERIA 3 /uL (0-1359); URINE BILIRUBIN NEGATIVE (NEGATIVE); URINE COLOR YELLOW; URINE GLUCOSE (UA) NEGATIVE (NEGATIVE); URINE KETONE NEGATIVE (NEGATIVE); URINE LEUK ESTERASE TRACE (NEGATIVE); URINE NITRITE NEGATIVE (NEGATIVE); URINE PROTEIN NEGATIVE (NEGATIVE); URINE RBC 7 /uL (0-23.9); URINE UROBILINOGEN 0.2 mg/dL (0.2-1.0); URINE WBC 20 /uL (0-25.8)
[2024-04-20 15:05] LABS: POTASSIUM 5.2 mmol/L (3.5-5.1)
[2024-04-20 15:07] LABS: ALBUMIN 3.6 g/dl (3.4-5.0); BLOOD UREA NITROGEN 19.2 mg/dL (7-18); CALCIUM 9.5 mg/dL (8.5-10.1); MAGNESIUM 1.8 mg/dL (1.8-2.4)
[2024-04-20 15:12] LABS: BILIRUBIN,TOTAL 0.6 mg/dL (0.2-1); TOT PROT 6.7 g/dl (6.4-8.2)
[2024-04-20 17:19] VITALS: BP 152/50; PULSE 85; RESP 18
== END 2024-04-20 18:51 | disposition home or self-care (01) ==
LOC: JER 11:20
PROC: 3E033GC Introduction of Other Therapeutic Substance into Peripheral Vein, Percutaneous Approach (ICD-10-PCS; principal; 2024-04-20)
PROC: 3E033GC Introduction of Other Therapeutic Substance into Peripheral Vein, Percutaneous Approach (ICD-10-PCS; 2024-04-20)
PROC: 3E0337Z Introduction of Electrolytic and Water Balance Substance into Peripheral Vein, Percutaneous Approach (ICD-10-PCS; 2024-04-20)
DX: R19.7 Diarrhea, unspecified (principal); Z20.822 Contact with and (suspected) exposure to COVID-19
CPT/HCPCS: 0241U-QW; 36415; 71045-TC-FY; 74177-TC; 80053; 81003; 83605; 83690; 83735; 85025; 86803; 87086; 93005; 93010; 99285-25

== ENCOUNTER 2024-04-24 09:14 | Inpatient (IN) | payer OTHER, MEDICARE ==
[2024-04-24 09:35] VITALS: BMI 27.1
[2024-04-24 11:34] LABS: BASO % 0.9 % (0-2.0); EOS % 1.8 % (0-4.5); HEMATOCRIT 31.1 % (32.4-45.2); HEMOGLOBIN 10.2 GM/dL (10.7-15.3); LYMPH % 21.8 % (8-40); MCH 28.5 pg (25.7-33.7); MCHC 32.7 g/dl (32.0-36.0); MEAN CELL VOLUME 86.9 fl (80-96); MEAN PLT VOLUME 7.4 fl (7.5-11.1); MONO % 9.4 % (3.8-10.2); NEUT % 66.1 % (42.8-82.8); PLATELET COUNT 247 10^3/uL (134-434); RBC 3.58 M/mm3 (3.60-5.2); RDW 16.6 % (11.6-15.6); WHITE BLOOD COUNT 7.3 K/mm3 (4.0-10.0)
[2024-04-24] MEDS ORDERED: ACETAMINOPHEN 325 MG TABLET (FP) ONE (11:41)
[2024-04-24 11:48] LABS: EPI CELLS 13 /uL (0-25.1); HYALINE CASTS 1 /uL (0-3.1); PH,URINE 5.5 (5.0-8.0); URINE APPEARANCE CLEAR; URINE BACTERIA 5 /uL (0-1359); URINE BILIRUBIN NEGATIVE (NEGATIVE); URINE COLOR YELLOW; URINE GLUCOSE (UA) NEGATIVE (NEGATIVE); URINE KETONE TRACE (NEGATIVE); URINE LEUK ESTERASE 1+ (NEGATIVE); URINE NITRITE NEGATIVE (NEGATIVE); URINE PROTEIN NEGATIVE (NEGATIVE); URINE RBC 13 /uL (0-23.9); URINE UROBILINOGEN 0.2 mg/dL (0.2-1.0); URINE WBC 43 /uL (0-25.8)
[2024-04-24] MEDS: SODIUM CHLORIDE 0.9% 500 ML INFUS.BAG IV ONE (11:48)
[2024-04-24] MEDS: ACETAMINOPHEN 325 MG TABLET (FP) PO ONE (11:48)
[2024-04-24 11:51] LABS: POTASSIUM 4.3 mmol/L (3.5-5.1)
[2024-04-24 11:53] LABS: CALCIUM 9.4 mg/dL (8.5-10.1)
[2024-04-24 11:54] LABS: ALBUMIN 3.6 g/dl (3.4-5.0); BLOOD UREA NITROGEN 15.4 mg/dL (7-18); MAGNESIUM 1.6 mg/dL (1.8-2.4)
[2024-04-24 11:59] LABS: BILIRUBIN,TOTAL 0.5 mg/dL (0.2-1); TOT PROT 6.4 g/dl (6.4-8.2)
[2024-04-24] MEDS: D5-1/2NS+20 MEQ KCL - 20 MEQ/1,000 ML INFUS.BAG IV SCH (17:53)
[2024-04-24] MEDS: MECLIZINE HCL 25 MG TABLET (FP) PO SCH (21:25)
[2024-04-24] MEDS: MONTELUKAST NA 10 MG TABLET PO SCH (21:25)
[2024-04-24] MEDS: APIXABAN 5 MG TABLET PO SCH (21:25)
[2024-04-24] MEDS: GABAPENTIN 300 MG CAPSULE PO SCH (21:25)
[2024-04-24] MEDS: ATORVASTATIN CA 40 MG TABLET (FP) PO SCH (21:25)
[2024-04-24] MEDS: LIDOCAINE PATCH REMOVAL MC SCH (21:25)
[2024-04-24] MEDS: hydrALAZINE HCL 10 MG TABLET PO ONE (21:30)
[2024-04-24] MEDS: ACETAMINOPHEN 325 MG TABLET (FP) PO PRN (21:53)
[2024-04-25] MEDS: LEVOTHYROXINE NA 25 MCG TABLET (FP) PO SCH (06:24)
[2024-04-25] MEDS: ONDANSETRON 4 MG/2 ML VIAL IVPUSH ONE (07:30)
[2024-04-25 08:39] LABS: BASO % 0.4 % (0-2.0); EOS % 1.9 % (0-4.5); HEMATOCRIT 30.8 % (32.4-45.2); HEMOGLOBIN 10.3 GM/dL (10.7-15.3); LYMPH % 15.7 % (8-40); MCH 28.7 pg (25.7-33.7); MCHC 33.4 g/dl (32.0-36.0); MEAN PLT VOLUME 7.2 fl (7.5-11.1); MONO % 9.8 % (3.8-10.2); NEUT % 72.2 % (42.8-82.8); PLATELET COUNT 236 10^3/uL (134-434); RBC 3.58 M/mm3 (3.60-5.2); RDW 16.3 % (11.6-15.6); WHITE BLOOD COUNT 6.8 K/mm3 (4.0-10.0)
[2024-04-25 08:57] LABS: POTASSIUM 4.2 mmol/L (3.5-5.1)
[2024-04-25 09:05] LABS: CALCIUM 8.8 mg/dL (8.5-10.1)
[2024-04-25 09:06] LABS: ALBUMIN 3.3 g/dl (3.4-5.0); BLOOD UREA NITROGEN 9.3 mg/dL (7-18)
[2024-04-25 09:10] LABS: CREATININE 0.8 mg/dL (0.55-1.3)
[2024-04-25 09:11] LABS: BILIRUBIN,TOTAL 0.5 mg/dL (0.2-1); TOT PROT 5.6 g/dl (6.4-8.2)
[2024-04-25] MEDS: LOSARTAN POTASSIUM 25 MG TABLET PO SCH (11:54)
[2024-04-25] MEDS: LIDOCAINE 4% PATCH TP SCH (11:54)
[2024-04-25] MEDS: FLUTICASONE/UMECLIDIN/VILANTER(200-62.5-25 TRELEGY ELLIPTA) INAHLER IH SCH (12:46)
[2024-04-25] MEDS: FLUTICASONE PROP 0.05% 16 GM NASAL SPRAY NS SCH (12:47)
[2024-04-26] MEDS: POLYETHYLENE GLYCOL (HEALTHYLAX) 3350 17 GM PACKET PO SCH (13:25)
[2024-04-27] MEDS: ALBUTEROL SO4 2.5/IPRATROPIUM 0.5 INH SOL 3 ML VIAL.NEB. NEB SCH (08:06)
[2024-04-27] MEDS: FUROSEMIDE 40 MG/4 ML INJECTABLE VIAL IVPUSH ONE (09:15)
[2024-04-27 09:32] LABS: BASO % 0.5 % (0-2.0); EOS % 2.7 % (0-4.5); HEMATOCRIT 30.9 % (32.4-45.2); HEMOGLOBIN 10.4 GM/dL (10.7-15.3); MCH 28.9 pg (25.7-33.7); MCHC 33.5 g/dl (32.0-36.0); MEAN CELL VOLUME 86.2 fl (80-96); MEAN PLT VOLUME 7.4 fl (7.5-11.1); MONO % 11.9 % (3.8-10.2); NEUT % 58.9 % (42.8-82.8); PLATELET COUNT 215 10^3/uL (134-434); RBC 3.59 M/mm3 (3.60-5.2); RDW 15.7 % (11.6-15.6); WHITE BLOOD COUNT 7.6 K/mm3 (4.0-10.0)
[2024-04-27 09:56] LABS: POTASSIUM 4.1 mmol/L (3.5-5.1)
[2024-04-27 09:59] LABS: CALCIUM 8.9 mg/dL (8.5-10.1)
[2024-04-27 10:00] LABS: BLOOD UREA NITROGEN 8.4 mg/dL (7-18)
[2024-04-27 10:03] LABS: CREATININE 0.8 mg/dL (0.55-1.3)
[2024-04-27 10:04] LABS: BILIRUBIN,TOTAL 0.5 mg/dL (0.2-1); TOT PROT 5.6 g/dl (6.4-8.2)
[2024-04-28] MEDS: FUROSEMIDE 40 MG TABLET (FP) PO SCH (09:46)
[2024-04-28 13:27] VITALS: BP 153/66; PULSE 75; RESP 18; TEMP 98.1
[2024-04-29] MEDS ORDERED: LEVOTHYROXINE NA 50 MCG TABLET (FP) PO SCH (07:00)
== END 2024-04-28 15:44 | disposition home or self-care (01) | DRG 696 ==
LOC: JER 09:14 → JERBED 16:20 → OBSVTOIN 16:59 → J7W 18:13
PROVIDERS: ADMIT Family Medicine; ATTEND Family Medicine
DX: N39.490 Overflow incontinence (principal); I13.0 Hypertensive heart and chronic kidney disease with heart failure and stage 1 through stage 4 chronic kidney disease, or unspecified chronic kidney disease; I50.32 Chronic diastolic (congestive) heart failure; K59.09 Other constipation; E11.22 Type 2 diabetes mellitus with diabetic chronic kidney disease; N18.9 Chronic kidney disease, unspecified; I48.91 Unspecified atrial fibrillation; E78.5 Hyperlipidemia, unspecified
CPT/HCPCS: 36415; 71045-TC-FY; 74177-TC; 80053; 81003; 83605; 83735; 84443; 84484; 85025; 85651; 86140; 86850; 86870; 86880; 86900; 86901; 86902; 87045; 87046; 87086; 87324; 87449; 93005; 93010; 94640; 99285-25; G0378

== ENCOUNTER 2024-10-14 06:26 | Day surgery (SDC) | payer OTHER, MEDICARE ==
[2024-10-10 14:11] VITALS: BMI 30.2
[2024-10-14 09:34] VITALS: PULSE 75
[2024-10-14] MEDS ORDERED: MIDAZOLAM HCL 2 MG/2 ML SINGLE DOSE VIAL ONE (10:01)
[2024-10-14 10:53] VITALS: TEMP 97
[2024-10-14 11:44] VITALS: BP 174/83; RESP 21
== END 2024-10-14 12:15 | disposition home or self-care (01) ==
LOC: JASU-ENDO 06:26
PROVIDERS: ATTEND Internal Medicine Gastroenterology
PROC: 0DBL8ZX Excision of Transverse Colon, Via Natural or Artificial Opening Endoscopic, Diagnostic (ICD-10-PCS; 2024-10-14)
PROC: 0DBK8ZX Excision of Ascending Colon, Via Natural or Artificial Opening Endoscopic, Diagnostic (ICD-10-PCS; 2024-10-14)
PROC: 0DBL8ZX Excision of Transverse Colon, Via Natural or Artificial Opening Endoscopic, Diagnostic (ICD-10-PCS; 2024-10-14)
PROC: 0DBM8ZX Excision of Descending Colon, Via Natural or Artificial Opening Endoscopic, Diagnostic (ICD-10-PCS; 2024-10-14)
PROC: 0DBH8ZX Excision of Cecum, Via Natural or Artificial Opening Endoscopic, Diagnostic (ICD-10-PCS; 2024-10-14)
PROC: 0DB98ZX Excision of Duodenum, Via Natural or Artificial Opening Endoscopic, Diagnostic (ICD-10-PCS; 2024-10-14)
PROC: 0DB78ZX Excision of Stomach, Pylorus, Via Natural or Artificial Opening Endoscopic, Diagnostic (ICD-10-PCS; 2024-10-14)
PROC: 0DB68ZX Excision of Stomach, Via Natural or Artificial Opening Endoscopic, Diagnostic (ICD-10-PCS; 2024-10-14)
PROC: 0DBM8ZX Excision of Descending Colon, Via Natural or Artificial Opening Endoscopic, Diagnostic (ICD-10-PCS; principal; 2024-10-14 10:00)
DX: Z12.11 Encounter for screening for malignant neoplasm of colon (principal); D12.2 Benign neoplasm of ascending colon; D12.3 Benign neoplasm of transverse colon; K63.5 Polyp of colon; Z86.0101 Personal history of adenomatous and serrated colon polyps; Z98.0 Intestinal bypass and anastomosis status; K29.50 Unspecified chronic gastritis without bleeding; K29.40 Chronic atrophic gastritis without bleeding; I10 Essential (primary) hypertension
CPT/HCPCS: 88305-TC; 88342-TC